=== PATIENT | female | born 1990 | race Caucasian/White ===

== ENCOUNTER 2020-06-14 20:02 | Emergency (ER) | payer OTHER, SELFPAY ==
--- NOTE | ~2020-06-14 | CT_ITS ---
EXAMINATION: CT brain wo con, CT cervical spine wo con EXAM DATE: 06/14/2020 21:06 INDICATION: Head injury, lightheadedness. Dizziness. TECHNIQUE: Spiral CT of the head was performed without contrast. Axial, coronal and sagittal images were reviewed. Spiral CT of the cervical spine was performed without contrast. Axial images were rev iewed. Coronal and sagittal reformatted images were also reviewed. The dose-length product (DLP) fo r this examination was 605.33 (accession [id number]), 309.00 (accession [id number]) mGy-cm. The exposure was tailored according to patient size, and iterative reconstruction (ASIR) was used as additional dose reduction technique. There is no prior study for comparison. FINDINGS: HEAD CT: There is no acute intraparenchymal hemorrhage. No evidence of intraparenchymal brain mass l esion. No evidence of acute infarction. There is no mass effect or midline shift. There is no obstru ctive hydrocephalus suspected. There are no extra-axial collections. There are no acute calvarial f ractures. The orbits are unremarkable. Soft tissue is unremarkable. The visualized sinuses and mas toid air cells are well aerated. 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 Mild cervical levoscoliosis. There is no evidence of acute cervical fracture. The odontoid process is intact. Pr e-dens space is normal. Prevertebral soft tissue is normal. There are no soft tissue abnormalities identified. There is no disc space widening or traumatic vertebral body subluxation suspected. Ther e is mild cervical spondylosis. A detailed level by level evaluation of spondylosis can be added as addendum if requested. IMPRESSION: 1. No acute intracranial findings or cervical fracture. Reviewed, dictated and finalized at location A. ICIAN SURGEON IMPRESSION: 1. No acute intracranial findings or cervical fracture.
[2020-06-14 20:10] VITALS: BP 121/54; PULSE 87; RESP 16; TEMP 36.9; O2SAT 98
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
[2020-06-14 22:19] VITALS: BP 120/63; PULSE 79; RESP 18; O2SAT 98
== END 2020-06-14 22:20 | disposition home or self-care (01) ==
PROVIDERS: Emergency Provider Emergency Medicine; PCP Internal Medicine
DX: S16.1XXA Strain of muscle, fascia and tendon at neck level, initial encounter (principal); S09.90XA Unspecified injury of head, initial encounter; R01.1 Cardiac murmur, unspecified; M72.2 Plantar fascial fibromatosis; V49.40XA Driver injured in collision with unspecified motor vehicles in traffic accident, initial encounter
CPT/HCPCS: 70450; 72125; 99284

== ENCOUNTER 2020-09-16 10:13 | Outpatient (CLI) | payer OTHER, SELFPAY ==
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
== END 2020-09-16 10:14 | disposition home or self-care (01) ==
LOC: ANHIMG 10:17
PROVIDERS: PCP Internal Medicine; Visit Provider Clinical Nurse Specialist
DX: S69.90XA Unspecified injury of unspecified wrist, hand and finger(s), initial encounter (principal); M79.639 Pain in unspecified forearm
CPT/HCPCS: 73090; 73130

== ENCOUNTER 2020-09-28 10:29 | Outpatient (CLI) | payer OTHER, SELFPAY ==
--- NOTE | ~2020-09-28 | MR_ITS ---
EXAMINATION: MR hand RT wo con DATE: 09/28/2020 11:19 INDICATION: Right hand pain. Injury one month ago. TECHNIQUE: Magnetic resonance imaging (MRI) of the right hand was performed without intravenous contr ast. Sequences included axial, coronal, and sagittal T1-weighted FSE and T2-weighted FS FSE. COMPARISON: Right hand radiographs 09/16/2020 FINDINGS: Bone alignment is normal. No fracture. Joint spaces are normal. The flexor and extensor ten dons are normal. IMPRESSION: 1. Normal right hand. Reviewed, dictated and finalized at location A. IMPRESSION: 1. Normal right hand.
== END 2020-09-28 10:30 | disposition home or self-care (01) ==
LOC: ANHIMG 10:30
PROVIDERS: PCP Internal Medicine; Visit Provider Clinical Nurse Specialist
DX: S69.90XA Unspecified injury of unspecified wrist, hand and finger(s), initial encounter (principal); X58.XXXA Exposure to other specified factors, initial encounter
CPT/HCPCS: 73218

== ENCOUNTER 2021-01-03 17:06 | Emergency (ER) | payer OTHER, SELFPAY ==
[2021-01-03 17:09] VITALS: BP 121/75; PULSE 85; RESP 16; TEMP 36.8; O2SAT 99
--- NOTE | 2021-01-03 20:05 | ED.GENADULT ---
HPI - General Adult General Chief complaint: Wound/Laceration Stated complaint: boil to right thigh Time Seen by Provider: 01/03/21 18:11 Source: patient Mode of arrival: ambulatory Limitations: no limitations History of Present Illness HPI narrative: Patient presents with chief complaint of swollen area to the posterior aspect of her right leg that has worsened over the past 2 weeks. Patient states that it started out as a pimple but has increased in size and tenderness. Patient denies any fever, chills, nausea, vomiting, diarrhea, streaking or any other symptoms. Patient denies known history of MRSA. Patient denies chance of due to abstinence. Related Data Home Medications Medication Instructions Recorded Confirmed levothyroxine 75 mcg capsule 75 mcg PO DAILY 11/20/20 Allergies Allergy/AdvReac Type Severity Reaction Status Date / Time No Known Allergies Allergy Unverified 08/16/19 09:27 Review of Systems Review of Systems: CONSTITUTIONAL: Denies fever, chills, or sweats. EYES: Denies visual changes, redness, or discharge. ENT: Denies rhinorrhea, congestion, sore throat, or otalgia. CARDIOVASCULAR: Denies chest pain, palpitations, or edema. RESPIRATORY: Denies cough or dyspnea. GASTROINTESTINAL: Denies abdominal pain, nausea, vomiting, or diarrhea. GENITOURINARY: Denies dysuria or hematuria. SKIN: Reports abscess denies rash or itching. MUSCULOSKELETAL: Denies back pain, joint pain, or myalgia. NEUROLOGIC: Denies headache, numbness, dizziness, or weakness. PSYCHIATRIC: Denies anxiety or depression. PMFSH Past Medical History Medical History Heart murmur Plantar fasciitis, bilateral Surgical History Surgical History H/O dilation and curettage History of open heart surgery Family History Family History Father Hypertension Mother Diabetes mellitus Fatty liver Social History Social History Smoking status: Never smoker Alcohol intake: never Exam Narrative: GENERAL: Well-appearing, well-nourished, and in no acute distress. HEAD: Normocephalic, atraumatic. EYES: PERRLA and EOMI. CHEST: Clear to auscultation. No respiratory distress. No wheezes rales or rhonchi HEART: Regular rate and rhythm. No murmur heard. Normal peripheral pulses. EXTREMITIES: Normal range of motion. No edema. SKIN: Approximately 2.5 cm circular abscess noted to the posterior aspect of the right thigh. Warm, dry, no rash. NEURO: No focal deficits. Alert and oriented x3. PSYCH: Normal mood and affect. Course Vital Signs Vital signs: Vital Signs Temperature 98.3 F 01/03/21 17:09 Pulse Rate 85 01/03/21 17:09 Respiratory Rate 16 01/03/21 17:09 Blood Pressure 121/75 01/03/21 17:09 Pulse Oximetry 99 01/03/21 17:09 Temperature 98.3 F 01/03/21 17:09 Pulse Rate 85 01/03/21 17:09 Respiratory Rate 16 01/03/21 17:09 Blood Pressure 121/75 01/03/21 17:09 Pulse Oximetry 99 01/03/21 17:09 Procedures Abscess I/D lower extremity: Side (if applicable): right Local Anesthetic: lidocaine 1% Amount of anesthesia used (mL): 2 Technique: incised with #11 blade Irrigation: Yes Packing used?: none I&D Results: Pus Abcess I&D Additional Comments: Culture taken wound care instructions given Medical Decision Making Vital Signs Vital Signs: Vital Signs Temperature 98.3 F 01/03/21 17:09 Pulse Rate 85 01/03/21 17:09 Respiratory Rate 16 01/03/21 17:09 Blood Pressure 121/75 01/03/21 17:09 Pulse Oximetry 99 01/03/21 17:09 Temperature 98.3 F 01/03/21 17:09 Pulse Rate 85 01/03/21 17:09 Respiratory Rate 16 01/03/21 17:09 Blood Pressure 121/75 01/03/21 17:09 Pulse Oximetry 99 01/03/21 17:09
[2021-01-03 20:35] VITALS: BP 122/53; PULSE 65; RESP 16; O2SAT 96
== END 2021-01-03 20:36 | disposition home or self-care (01) ==
PROVIDERS: Emergency Provider Emergency Medicine; PCP Internal Medicine
DX: L02.415 Cutaneous abscess of right lower limb (principal)
CPT/HCPCS: 10060; 99283

== ENCOUNTER 2023-07-02 07:38 | Outpatient (CLI) | payer OTHER, SELFPAY ==
--- NOTE | ~2023-07-02 | US_ITS ---
EXAMINATION: US pelvic complete w TV DATE: 07/02/2023 08:39 INDICATION: Displacement of intrauterine contraceptive device. TECHNIQUE: Multiple transabdominal and transvaginal sonographic images of the pelvis were obtained. COMPARISON: None. FINDINGS: TRANSABDOMINAL ULTRASOUND: There is no free fluid in the pelvis. TRANSVAGINAL ULTRASOUND: The uterus measures 6.2 x 5.0 x 3.2 cm . The endometrial complex measures 8 mm in thickness. There is an intrauterine device in expected position. The right ovary measures 1.7 x 3.7 x 1.7 cm. The left o vary measures 3.0 x 1.0 x 2.3 cm. There is normal vascular flow in the ovaries. IMPRESSION: 1. Intrauterine device in expected position. Reviewed, dictated and finalized at location E. IT ASSOCIATE
== END 2023-07-02 07:39 | disposition home or self-care (01) ==
PROVIDERS: PCP Nurse Practitioner Family; Visit Provider Student in an Organized Health Care Education/Training Program
DX: T83.32XA Displacement of intrauterine contraceptive device, initial encounter (principal)
CPT/HCPCS: 76830; 76856

== ENCOUNTER 2024-01-02 10:29 | Emergency (ER) | payer OTHER, SELFPAY ==
[2024-01-02 10:42] VITALS: BP 130/69; PULSE 76; RESP 20; TEMP 36.8; O2SAT 100
--- NOTE | 2024-01-02 10:55 | ED.GENADULT ---
HPI - General Adult General Chief complaint: Extremity Injury, Upper Stated complaint: Left Shoulder Pain Time Seen by Provider: 01/02/24 10:57 Source: patient Mode of arrival: ambulatory Limitations: no limitations History of Present Illness HPI narrative: 33-year-old female presented for complaint of left upper chest and shoulder discomfort. Onset today. She states she was not doing anything when the pain started. Denies recent overuse or injury. Has not taken anything for pain. Rates pain 5/10. Pain is worse with taking deep breath. Related Data Home Medications Medication Instructions Recorded Confirmed No Home Medications 01/02/24 01/02/24 Allergies Allergy/AdvReac Type Severity Reaction Status Date / Time No Known Allergies Allergy Verified 01/02/24 11:01 Review of Systems Review of Systems: CONSTITUTIONAL: Denies body aches, fever, chills CARDIOVASCULAR: Denies chest pain, palpitations, or edema. RESPIRATORY: Denies cough or dyspnea. GASTROINTESTINAL: Denies abdominal pain, nausea, vomiting SKIN: Denies rash, itching, or wounds. MUSCULOSKELETAL: reports pain to left upper chest, shoulder and back NEUROLOGIC: Denies headache, numbness, tingling, or weakness. All systems reviewed & are unremarkable except as noted in HPI and below PMFSH Past Medical History Medical History Anxiety Depression Heart murmur Hypothyroid Plantar fasciitis, bilateral Vaginal discharge Surgical History Surgical History H/O dilation and curettage History of gynecological procedure emmanuel insertion 04/2018 / emmanuel removal 08/06/2021 mirena iud insertion - 08/06/2021 History of open heart surgery Family History Family History Father Hypertension Mother Diabetes mellitus Fatty liver Social History Social History Smoking packs per day: 1 Smoking cigarettes per day: 20.0 Years smoked: 11 Smoking pack-years: 11.00 Smoking status: Current every day smoker Tobacco type: cigarettes Second hand tobacco smoke exposure: Yes Alcohol intake: never Substance use: current Substance use type: marijuana Living arrangements: with family Occupation/Education: occupation 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 Please see nursing chart for further information. There is no relevant family history pertinent to the presenting complaint Exam Narrative: GENERAL: Well-appearing NECK: Supple. No cervical vpt. Full ROM. CHEST: Speaks in full sentences. No respiratory distress. HEART: Regular rate and rhythm. Normal and equal peripheral pulses. EXTREMITIES: Left upper chest, clavicular area, and left trapezius tender with palpation. STEF has normal strength and sensation, normal range of motion at shoulder but endorses pain to left upper chest/shoulder with movement over head. No edema or ecchymosis. No open wounds, or obvious deformity; alignment normal, pulse palpable and equal bilaterally, skin warm, dry, pink. Capillary refill less than 3 seconds. SKIN: Warm, dry, no rash. NEURO: Alert and oriented x3. PSYCH: Normal mood and affect Chest: Chest/axillae images: 1. area of pain reported, tender with palpation Course Course Emergency Course: Patient is aware of diagnosis, understands and agrees to treatment plan. Anticipatory guidance given. Patient agrees to follow-up as directed and is aware of reasons to seek care at the emergency department. Portions of this record may have been created with voice recognition software Level of Care: Express Care
== END 2024-01-02 11:10 | disposition home or self-care (01) ==
PROVIDERS: Emergency Provider Nurse Practitioner Family
DX: M25.512 Pain in left shoulder (principal); R07.89 Other chest pain
CPT/HCPCS: 99212; G0463

== ENCOUNTER 2024-04-07 19:57 | Emergency (ER) | payer OTHER, SELFPAY ==
[2024-04-07 20:10] VITALS: BP 142/75; PULSE 68; RESP 20; TEMP 36.4; O2SAT 100
--- NOTE | 2024-04-07 20:46 | ECG_ITS ---
Test Date: 2024-04-07 21:48:32 Measurements Intervals [place] Rate: 60 P: 52 ME: 137 QRS: 63 QRSD: 97 T: 74 QT: 440 QTc: 443 Interpretive Statements SINUS RHYTHM No previous ECG available for comparison Electronically Signed On 04-08-2024 08:41:30 CARE PROFESSIONAL by Jonathan Anderson M.D.
--- NOTE | 2024-04-07 20:55 | ED.DIZZY ---
HPI - Dizziness General Chief Complaint: Dizziness Stated Complaint: Since yesterday dizzy and lightheaded, shakes Time Seen by Provider: 04/07/24 20:11 History of Present Illness HPI Narrative: 33-year-old female with a past medical history of anxiety, depression, hypothyroidism. Presents to the emergency room today with chief complaint of lightheaded sensation since yesterday. She states she was at work when she noted that her blood pressure was elevated in the 160s. She works at a [employer]. She states that she does not take any blood pressure medications and not taking medications at this time at all. No recent PCP visit that she lost her insurance. She states that she has had some mild headache and ?dizziness ?where she does not experience any ataxia or vertigo. She otherwise is well appearing not any acute distress. Was otherwise in her normal state of health. No trauma or injuries or recent illnesses. Does have sick contacts at home including COVID flu patient's. Related Data Home Medications ?Medication ?Instructions ?Recorded ?Confirmed ?Last Taken ?Type No Home Medications 01/02/24 01/02/24 Unknown History Allergies Allergy/AdvReac Type Severity Reaction Status Date / Time No Known Allergies Allergy Verified 04/07/24 20:14 Review of Systems Review of Systems: As reviewed above in HPI PMFSH Past Medical History Medical History Vaginal discharge Hypothyroid Depression Anxiety Heart murmur Plantar fasciitis, bilateral Surgical History Surgical History History of gynecological procedure emmanuel insertion 04/2018 / emmanuel removal 08/06/2021 mirena iud insertion - 08/06/2021 History of open heart surgery H/O dilation and curettage Family History Family History Father Hypertension Mother Diabetes mellitus Fatty liver Social History Social History Smoking packs per day: 1 Smoking cigarettes per day: 20.0 Years smoked: 11 Smoking pack-years: 11.00 Smoking status: Current every day smoker Tobacco type: cigarettes Second hand tobacco smoke exposure: Yes Alcohol intake: never Substance use: current Substance use type: marijuana Living arrangements: with family Occupation/Education: occupation 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 Mucous membranes moist. No evidence of otitis in either ear, clear canals. NECK: Supple. CHEST: [Clear to auscultation. No respiratory distress.] HEART: [Regular rate and rhythm]. No murmur heard. [Normal peripheral pulses.] ABDOMEN: [Soft, nondistended], [nontender], [No rigidity or guarding] EXTREMITIES: Normal range of motion. [No edema.] SKIN: Warm, dry, no rash. NEURO: [No focal deficits]. Alert and oriented [x3.] PSYCH: [Normal mood and affect.] Course Vital Signs Vital signs: Vital Signs Temperature 36.4 C 04/07/24 20:10 Pulse Rate 68 04/07/24 20:10 Respiratory Rate 20 04/07/24 20:10 Blood Pressure 142/75 H 04/07/24 20:10 Pulse Oximetry 100 04/07/24 20:10 Oxygen Delivery Room Air 04/07/24 20:10 Temperature 36.6 C 04/07/24 23:01 Pulse Rate 60 04/07/24 23:01 Respiratory Rate 17 04/07/24 23:01 Blood Pressure 117/85 04/07/24 23:01 Pulse Oximetry 100 04/07/24 23:01 Oxygen Delivery Room Air 04/07/24 20:10 MDM - Dizziness MDM Narrative Medical decision making narrative: 33-year-old healthy-appearing female presenting to the emergency department with a complaint of lightheadedness. She describes about headache that is bifrontal in nature. Overall reassuring examination with normal vital signs, normal neurological assessment, no signs of otitis, no signs of trauma. Blood pressure slightly elevated 142/75 but not significant elevated and has no vital concerns otherwise. Will obtain basic laboratory studies including CBC, BMP, magnesium,ekg and test. She was provide ibuprofen her headache which upon re-evaluation had significantly improved. Laboratory studies show no significant leukocytosis, no anemia. Normal platelets. Electrolytes all within normal limits, normal renal function panel, normal magnesium, negative test. COVID fluid RSV swabs are negative Overall patient is well-appearing on any acute distress and has no significant or concerning pathology going on and can be safe for discharge with PCP follow-up. Medical Records Attestation: I reviewed the patient's medical records. Lab Data Attestation: I reviewed the patient's lab results. 04/07/24 21:20 04/07/24 21:20 Labs: Lab Results 04/07/24 04/07/24 Range/Units 21:16 21:20 WBC 10.9 H (4.5-10.0) K/mm3 RBC 4.08 L (4.2-5.4) M/mm3 Hgb 12.9 (12.0-15.0) g/dL Hct 37.7 (37.0-47.0) % MCV 92.4 (80-100) fl MCH 31.6 (26-34) pg MCHC 34.2 (32-36) g/dl RDW 12.3 (11.5-14.5) % Plt Count 233 (150-375) k/mm3 MPV 9.7 (7.4-10.4) fl Immature Gran % (Auto) 0.4 (0-0.5) % Neut % (Auto) 76.5 H (45.5-73.1) % Lymph % (Auto) 17.2 L (18.3-44.2) % [place] % (Auto) 5.4 (2.6-8.5) % Eos % (Auto) 0.3 (0-4.4) % Baso % (Auto) 0.2 (0.2-1.2) % Lymph # (Auto) 1.87 (0.9-3.2) K/mm3 [place] # (Auto) 0.6 (0.1-0.6) K/mm3 Eos # (Auto) 0.0 (0-0.3) K/mm3 Baso # (Auto) 0.0 (0.0-0.1) K/mm3 Abs Immat Gran (auto) 0.04 H (0.00-0.031) K/mm3 Absolute Neuts (auto) 8.4 H (1.3-6.7) K/mm3 Absolute Nucleated RBC 0.000 (0.0-0.012) K/mm3 Nucleated RBC % 0.0 (0.0-0.2) % Sodium 141 (137-145) mmol/L Potassium 3.9 (3.4-5.0) mmol/L Chloride 108 H (98-107) mmol/L Carbon Dioxide 28 (22-30) mmol/L Anion Gap 5 (4-12) mmol/L BUN 14 (7-17) mg/dL Creatinine 0.70 (0.7-1.0) mg/dL Estim Creat Clear Calc 109 ml/min Estimated GFR > 60 (59 - ) Glucose 96 (65-110) mg/dL Calcium 8.7 (8.4-10.2) mg/dL Magnesium 2.0 (1.6-2.3) mg/dL Serum HCG, Qual Negative Influenza A (RT-PCR) Negative (Negative) Influenza B (RT-PCR) Negative (Negative) RSV (RT-PCR) Negative (Negative) SARS-CoV-2 RNA (RT-PCR) Negative (Negative) Discharge Plan Discharge Clinical Impression: Episodic lightheadedness Patient Disposition: Home, Self-Care Condition: Stable Instructions: Antibiotic Form, Dizziness (ED) Additional Instructions: Your laboratory studies and workup are very reassuring. Your blood pressure is within normal limits now. I believe you can safely follow-up with your regular primary care provider on outpatient basis. No emergencies today but return with any new or worsening concerns if needed. Patient Language: Lao Prescriptions: No Action No Home Medications Follow-up/Referrals: PHYSICIAN,CREDIT ADMINISTRATION OFFICER [Non-Staff] - Time of Disposition: 23:04
[2024-04-07] MEDS: IBUPROFEN 400 MG TABLET 800 MG PO (21:13)
[2024-04-07 21:23] VITALS: BP 127/73; PULSE 68
[2024-04-07 21:24] VITALS: BP 123/70; PULSE 65
[2024-04-07 21:24] LABS: Basophils Percent Auto 0.2 % (0.2-1.2); Eosinophils Percent Auto 0.3 % (0-4.4); Hematocrit 37.7 % (37.0-47.0); Hemoglobin 12.9 g/dL (12.0-15.0); Immature Granulocyte Absolute 0.04 K/mm3 (0.00-0.031); Immature Granulocyte Percent A 0.4 % (0-0.5); Lymphocytes Absolute Auto 1.87 K/mm3 (0.9-3.2); Lymphocytes Percent Auto 17.2 % (18.3-44.2); Mean Corpuscular HGB Conc 34.2 g/dl (32-36); Mean Corpuscular Hemoglobin 31.6 pg (26-34); Mean Corpuscular Volume 92.4 fl (80-100); Mean Platelet Volume 9.7 fl (7.4-10.4); Monocytes Absolute Auto 0.6 K/mm3 (0.1-0.6); Monocytes Percent Auto 5.4 % (2.6-8.5); Neutrophils Absolute Auto 8.4 K/mm3 (1.3-6.7); Neutrophils Percent Auto 76.5 % (45.5-73.1); Platelet Count Result 233 k/mm3 (150-375); Red Blood Count 4.08 M/mm3 (4.2-5.4); Red Cell Distribution Width 12.3 % (11.5-14.5); White Blood Count 10.9 K/mm3 (4.5-10.0)
[2024-04-07 21:32] VITALS: BP 121/86; PULSE 68; RESP 20; TEMP 36.7; O2SAT 100
[2024-04-07 21:34] LABS: Anion Gap 5 mmol/L (4-12); Blood Urea Nitrogen 14 mg/dL (7-17); Calcium 8.7 mg/dL (8.4-10.2); Carbon Dioxide 28 mmol/L (22-30); Chloride 108 mmol/L (98-107); Estimated CRCL calculation 109 ml/min; Estimated Glomerular Filt Rate > 60; Glucose 96 mg/dL (65-110); Potassium 3.9 mmol/L (3.4-5.0); Sodium 141 mmol/L (137-145)
[2024-04-07 21:51] LABS: SPREG INTERNAL CONTROL Positive; Serum Qual hCG Negative
[2024-04-07 22:54] LABS: Influenza A QL RT-PCR Negative (Negative); Influenza B QL RT-PCR Negative (Negative); RSV RNA, RT-PCR Negative (Negative); SARS-CoV-2 RNA PCR Negative (Negative)
[2024-04-07 23:01] VITALS: BP 117/85; PULSE 60; RESP 17; TEMP 36.6; O2SAT 100
--- OUTSIDE RECORDS SUMMARY | 2024-04-12 03:56 | XMS_ITS | Data Portability ---
[facility] Organization [facility] Address [address] [place] [address] Assessment Encounter Date Assessment Date Assessment LastModified by Organization Details LastModified Time 04/29/2022 04/29/2022 Verbal consent for telephone visit was obtained and phone call lasted for approximately 15 min. Not available 04/29/2022 15:50:02 Plan of Treatment Reminders Order Date Submit Date Provider Last Modified By Organization Details Last Modified Time Details Appointments ANY 30 2024 02:00P Elisha Mendoza APN, [employer]OR[employer] Not available Not available Not available Lab vitamin D, 25-hydr oxy, total, serum 2021 022 [facility], [address] [place] [address] 2, [place], [address], 01/08/2022 10:37:19 urinaly sis, dipstic k 2021 022 In-Office Order, Internal Use Only DO Not Attach Compendium DO Not Attach Compendium, Do Not Delete/merge, [id number] 01/06/2022 14:43:01 culture , urine 2021 022 [facility], [address] [facility] [address], [place], [address], 01/08/2022 10:37:18 TSH, ultra-s ensitiv e, serum 2021 022 PATRICIA [facility], [address], [place], [address], 01/08/2022 10:37:17 CMP, serum or plasma 2021 022 PAT[facility]IA [facility], [address], [place], [address], 01/08/2022 10:37:16 lipid panel, serum 2021 022 [facility], [address], [place], [address], 01/08/2022 10:37:15 CBC 2021 022 PAT[facility], [address], [place], [address], 01/08/2022 10:37:18 urinaly sis, dipstic k 2021 022 In-Office Order, Internal Use Only DO Not Attach Compendium DO Not Attach Compendium, Do Not Delete/merge, [id number] 03/12/2022 15:07:38 culture , urine 2021 022 [facility], [address] [place] [address] 2, [place], [address], 03/16/2022 03:07:59 TSH, ultra-s ensitiv e, serum 2021 022 [facility]ul[facility], [address] [place] [address] 2, [place], [address], 04/05/2023 09:28:36 TSH, ultra-s ensitiv e, serum 2022 023 [facility], [address] [place] [address] 2, [place], [address], 09/24/2022 10:37:04 urinaly sis, dipstic k 2022 023 In-Office Order, Internal Use Only DO Not Attach Compendium DO Not Attach Compendium, Do Not Delete/merge, [id number] 04/05/2023 10:00:51 culture , urine 2022 023 [facility], [address] [facility] [address], [place], [address], 04/08/2023 03:08:07 lipid panel, serum 2022 023 [facility], [address] [facility], [facility] [address], [place], [address], 04/08/2023 03:08:03 HbA1c (hemogl obin A1c), blood 2022 023 [facility], [address] [facility] [address], [place], [address], 04/08/2023 03:08:06 vitamin D, 25-hydr oxy, total, serum 2022 023 [facility], [address] [facility], [facility] [address], [place], [address], 04/08/2023 03:08:08 TSH, ultra-s ensitiv e, serum 2022 023 [facility], [address] [facility], [facility] [address], [place], [address], 04/08/2023 03:08:05 CMP, serum or plasma 2022 023 [facility], [address] [facility], [facility] [address], [place], [address], 04/08/2023 03:08:04 CBC 2022 023 [facility], [address] [facility], [facility] [address], [place], [address], 04/08/2023 03:08:07 Referral None recorde d. Procedures None recorde d. Surgeries None recorde d. Imaging None recorde d. Medication Orders escital opram 10 mg tablet 2021 022 [id number], [address], [place], [place], [id number], 04/05/2023 09:32:11 Macrobi d 100 mg capsule [address] [address] [facility]02886, [address], [place], [place], [id number], 04/29/2022 15:32:00 flucona zole 150 mg tablet 2021 [facility] #54512, [address], [place], [place], [id number], 04/05/2023 09:32:18 levothy roxine 25 mcg tablet 2021 [facility] #02637, [address], [place], [place], [id number], 04/05/2023 09:32:27 escital opram 10 mg tablet 2021 [facility] #09693, [address], [place], [place], [id number], 04/05/2023 09:32:11 bupropi on HCl SR 150 mg tablet, 12 hr sustain ed-rele ase 2021 [facility] #21504, [address], [place], [place], [id number], 04/05/2023 09:31:42 Zithrom ax Z-Kishan 250 mg tablet [address] [facility]73209, [address], [place], [place], [id number], 07/06/2022 14:55:50 levothy roxine 25 mcg tablet 2022 023 [facility] #48280, [address], [place], [place], [id number], 04/05/2023 09:32:38 escital opram 10 mg tablet 2022 023 [facility] #43284, [address], [place], [place], [id number], 04/05/2023 09:32:11 bupropi on HCl SR 150 mg tablet, 12 hr sustain ed-rele ase 2022 023 [facility] #[id number], [address], [place], [place], [id number], 04/05/2023 09:31:42 Patient TargetsNo targets recorded. Patient Instructions Encounter Date Encounter Id Patient Instructions Last Modified By Organization Details Last Modified Time 01/06/2022 [id number] When You Want to Lose Weight: Care Instructions Not available 01/06/2022 14:43:01 Learning About Benefits of Quitting Smoking Not available 01/06/2022 14:43:01 tobacco cessation Not available 01/06/2022 14:43:02 hypothyroidism: care instructions [email or web address] Not available 01/06/2022 14:43:02 Take thyroid medication on empty stomach at same time daily, 30-60 minutes before eating breakfast. It may take up to 6 weeks for the medication to make a difference. Call office if having any symptoms such as: Anxiety, irritability, trouble sleeping; weakness (in particular of the upper arms and thighs, making it difficult to lift heavy items or climb stairs or get up from a chair); tremors (of the hands), Perspiring more than normal, difficulty tolerating hot weather; rapid, forceful, or irregular heartbeats; fatigue; weight loss in spite of a normal or increased appetite; frequent bowel movements. Follow up with lab repeated in 6-8 weeks Not available 01/06/2022 14:45:35 follow up in 2 months I have reviewed the provider's note and I agree with the documented assessment and plan. HLF [email or web address] Not available 01/13/2022 14:43:10 03/12/2022 [id number] A healthy lifestyle: care instructions Not available 03/12/2022 15:07:38 painful urination (dysuria): care instructions Not available 03/12/2022 15:07:38 vaginal yeast infection: care instructions Not available 03/12/2022 15:07:38 hypothyroidism: care instructions Not available 03/12/2022 15:07:38 Continue to take medications as prescribed, do not abruptly stop them. Try walking or deep breathing exercises when feeling anxious. Stress management recommended-posi tive imagery. Increase activity to 30 min a day most days. Call or return if problem persists or worsens. Not available 03/12/2022 15:07:09 f/u 4 months DWP barriers to care: none Not available 03/12/2022 15:13:08 04/29/2022 [id number] A healthy lifestyle: care instructions Not available 04/29/2022 15:50:27 coronavirus (covid-19): care instructions Not available 04/29/2022 15:50:09 upper respiratory infection (cold): care instructions Not available 04/29/2022 15:47:24 Take all antibiotics prescribed to you. If any fever or increase in pain, call/return to office. Not available 04/29/2022 15:46:19 keep follow up as planned Not available 04/29/2022 15:46:53 07/06/2022 [id number] A healthy lifestyle: care instructions Not available 07/06/2022 15:28:33 hypothyroidism: care instructions Not available 07/06/2022 15:28:33 Continue to take medications as prescribed, do not abruptly stop them. Try walking or deep breathing exercises when feeling anxious. Stress management recommended-posi tive imagery. Increase activity to 30 min a day most days. Call or return if problem persists or worsens. Not available 07/06/2022 15:23:39 f/u 4 months DWP barriers to care: none Not available 07/06/2022 15:23:40 04/05/2023 [id number] Learning About Benefits of Quitting Smoking Not available 04/05/2023 10:00:46 A healthy lifestyle: care instructions Not available 04/05/2023 10:00:47 hypothyroidism: care instructions Not available 04/05/2023 10:00:47 Increase intake of fresh fruits,? ? ? and vegetables. Avoid packaged foods and fast foods. ? ? ? Follow a low salt diet, drink at least 8-10 8oz glasses of water a day, exercise most days of the week. Take all medications as prescribed. Keep appointments with PCP and all specialists. Not available 04/05/2023 09:54:18 f/u 6 months DWP barriers to care: none [email or web address] Not available 04/05/2023 10:00:54 Reason for Referral None Reported. Results Created Date Observation Date Name Description Value Unit Range Abnormal Flag Note LastModifiedBy Organization Detail LastModifiedTime 01/07/20 22 01/07/2022 LIPID PANEL cholesterol, total 131 mg/dL 100-19 9 Not Available [facility] ([facility]) [address] [facility], [place], [address], 01/08/2022 10:37:15 01/07/20 22 01/07/2022 LIPID PANEL triglyceride s 87 mg/dL 0-149 Not Available [facility] ([facility]) [address] [place], [address], 01/08/2022 10:37:15 01/07/20 22 01/07/2022 LIPID PANEL HDL cholesterol 40 mg/dL >39 Not Available [facility] ([facility]) [address] [place], [address], 01/08/2022 10:37:15 01/07/20 22 01/07/2022 LIPID PANEL VLDL cholesterol herminio 17 mg/dL 5-40 Not Available [facility] ([facility]) [address] [facility], [place], [address], 01/08/2022 10:37:15 01/07/20 22 01/07/2022 LIPID PANEL LDL chol calc ([facility]) 74 mg/dL 0-99 Not Available [facility] ([facility]) [address] [facility], [place], [address], 01/08/2022 10:37:15 01/07/20 22 01/07/2022 COMP. METAB OLIC PANEL (14) glucose 84 mg/dL 65-99 Not Available [facility] ([facility]) [address] [place], [address], 01/08/2022 10:37:16 01/07/20 22 01/07/2022 COMP. METAB OLIC PANEL (14) BUN 14 mg/dL 6-20 Not Available [facility] ([facility]) [address] [place], [address], 01/08/2022 10:37:16 01/07/20 22 01/07/2022 COMP. METAB OLIC PANEL (14) creatinine 0.66 mg/dL 0.57-1 .00 Not Available [facility] ([facility]) [address] [facility], [place], [address], 01/08/2022 10:37:16 01/07/20 22 01/07/2022 COMP. METAB OLIC PANEL (14) eGFR 119 mL/mi n/1.7 3 >59 Not Available [facility] ([facility]) [address] [place], [address], 01/08/2022 10:37:16 01/07/20 22 01/07/2022 COMP. METAB OLIC PANEL (14) BUN/creatini ne ratio 21 9-23 Not Available [facility] ([facility]) [address] [place], [address], 01/08/2022 10:37:16 01/07/20 22 01/07/2022 COMP. METAB OLIC PANEL (14) sodium 138 mmol/ L 134-14 4 Not Available [facility] ([facility]) [address] [place], [address], 01/08/2022 10:37:16 01/07/20 22 01/07/2022 COMP. METAB OLIC PANEL (14) potassium 4.2 mmol/ L 3.5-5. 2 Not Available [facility] ([facility]) [address] [place], [address], 01/08/2022 10:37:16 01/07/20 22 01/07/2022 COMP. METAB OLIC PANEL (14) chloride 101 mmol/ L 96-106 Not Available [facility] ([facility]) [address] [place], [address], 01/08/2022 10:37:16 01/07/20 22 01/07/2022 COMP. METAB OLIC PANEL (14) carbon dioxide, total 22 mmol/ L 20-29 Not Available [facility] ([facility]) [address] [place], [address], 01/08/2022 10:37:16 01/07/20 22 01/07/2022 COMP. METAB OLIC PANEL (14) calcium 9.1 mg/dL 8.7-10 .2 Not Available [facility] ([facility]) [address] [place], [address], 01/08/2022 10:37:16 01/07/20 22 01/07/2022 COMP. METAB OLIC PANEL (14) protein, total 7.1 g/dL 6.0-8. 5 Not Available [facility] ([facility]) [address] [place], [address], 01/08/2022 10:37:16 01/07/20 22 01/07/2022 COMP. METAB OLIC PANEL (14) albumin 4.8 g/dL 3.8-4. 8 Not Available [facility] ([facility]) [address] [place], [address], 01/08/2022 10:37:16 01/07/20 22 01/07/2022 COMP. METAB OLIC PANEL (14) globulin, total 2.3 g/dL 1.5-4. 5 Not Available [facility] ([facility]) [address] [place], [address], 01/08/2022 10:37:16 01/07/20 22 01/07/2022 COMP. METAB OLIC PANEL (14) A/G ratio 2.1 1.2-2. 2 Not Available [facility] ([facility]) [address] [place], [address], 01/08/2022 10:37:16 01/07/20 22 01/07/2022 COMP. METAB OLIC PANEL (14) bilirubin, total 0.5 mg/dL 0.0-1. 2 Not Available [facility] ([facility]) [address] [place], [address], 01/08/2022 10:37:16 01/07/20 22 01/07/2022 COMP. METAB OLIC PANEL (14) alkaline phosphatase 99 IU/L 44-121 Not Available [facility] ([facility]) [address] [place], [address], 01/08/2022 10:37:16 01/07/20 22 01/07/2022 COMP. METAB OLIC PANEL (14) AST (SGOT) 17 IU/L 0-40 Not Available [facility] ([facility]) [address] [place], [address], 01/08/2022 10:37:16 01/07/20 22 01/07/2022 COMP. METAB OLIC PANEL (14) ALT (SGPT) 16 IU/L 0-32 Not Available [facility] ([facility]) [address] [facility], [place], [address], 01/08/2022 10:37:16 01/07/20 22 01/07/2022 TSH RFX ON ABNOR MAL TO FREE T4 TSH 3.200 uIU/m L 0.450- 4.500 Not Available [facility] ([facility]) [address] [facility], [place], [address], 01/08/2022 10:37:17 01/07/20 22 01/08/2022 URINE CULTU RE,CO MPREH ENSIV E urine culture,comp rehensive Final report Not Available [facility] ([facility]) [address] [facility], [place], [address], 01/08/2022 10:37:18 01/07/20 22 01/08/2022 URINE CULTU RE,CO MPREH ENSIV E result 1 Commen t Mixed uroge nital ashley 10,00 0-25, 000 colon y formi ng units per mL Not Available [facility] ([facility]) [address] [facility], [place], [address], 01/08/2022 10:37:18 01/07/20 22 01/07/2022 CBC, PLATE LET, NO DIFFE RENTI AL WBC 8.4 x10e3 /uL 3.4-10 .8 Not Available [facility] ([facility]) [address] [place], [address], 01/08/2022 10:37:18 01/07/20 22 01/07/2022 CBC, PLATE LET, NO DIFFE RENTI AL RBC 4.53 x10e6 /uL 3.77-5 .28 Not Available [facility] ([facility]) [address] [facility], [place], [address], 01/08/2022 10:37:18 01/07/20 22 01/07/2022 CBC, PLATE LET, NO DIFFE RENTI AL hemoglobin 14.0 g/dL 11.1-1 5.9 Not Available [facility] ([facility]) [address] [facility], [place], [address], 01/08/2022 10:37:18 01/07/20 22 01/07/2022 CBC, PLATE LET, NO DIFFE RENTI AL hematocrit 42.6 % 34.0-4 6.6 Not Available [facility] ([facility]) [address] [facility], [place], [address], 01/08/2022 10:37:18 01/07/20 22 01/07/2022 CBC, PLATE LET, NO DIFFE RENTI AL MCV 94 fL 79-97 Not Available [facility] ([facility]) [address] [facility], [place], [address], 01/08/2022 10:37:18 01/07/2001/07/2022 CBC, PLATE LET, NO DIFFE RENTI AL MCH 30.9 pg 26.6-3 3.0 Not Available [facility] ([facility]) [address] [facility], [place], [address], 01/08/2022 10:37:18 01/07/2001/07/2022 CBC, PLATE LET, NO DIFFE RENTI AL MCHC 32.9 g/dL 31.5-3 5.7 Not Available [facility] ([facility]) [address] [facility], [place], [address], 01/08/2022 10:37:18 01/07/2001/07/2022 CBC, PLATE LET, NO DIFFE RENTI AL RDW 11.4 % 11.7-1 5.4 below low normal Not Available [facility] ([facility]) [address] [facility], [place], [address], 01/08/2022 10:37:18 01/07/20 22 01/07/2022 CBC, PLATE LET, NO DIFFE RENTI AL platelets 247 x10e3 /uL 150-45 0 Not Available [facility] ([facility]) [address] [facility], [place], [address], 01/08/2022 10:37:18 01/07/20 22 01/07/2022 VITAM IN D, 25-HY DROXY vitamin D, 25-hydroxy 24.4 NG/mL 30.0-1 00.0 below low normal Vitam in D defic iency has been defin ed by the Insti tute of Medic ine and an Endoc rine Socie ty pract ice guide line as a level of serum 25-OH vitam in D less than 20 ng/mL (1,2) . The Endoc rine Socie ty went on to [facility] er defin e vitam in D insuf ficie ncy as a level betwe en 21 and 29 ng/mL (2). 1. IOM (Inst itute of Medic ine). 2010. Dieta ry refer ence jens es for calci um and D. Philip neal [place]: [facility] . 2. Tory fry [place], Cathy murrieta [place], Charlie off-F errar i STEINER, et al. Evalu ation , treat ment, and preve ntion of vitam in D defic iency : an Endoc rine Socie ty clini herminio pract ice guide line. JCEM. 2010; 96(7) :1911 -30. Not Available [facility] ([facility]) [address] [facility], [place], [address], 01/08/2022 10:37:19 01/07/20 22 01/06/2022 urina lysis , dipst ick Leukocytes Negati ve Not Available In-Office Order Internal Use Only DO Not Attach Compendium DO Not Attach Compendium, Do Not Delete/merge, [id number] 01/06/2022 14:21:25 01/07/20 22 01/06/2022 urina lysis , dipst ick Nitrite negati ve Not Available In-Office Order Internal Use Only DO Not Attach Compendium DO Not Attach Compendium, Do Not Delete/merge, [id number] 01/06/2022 14:21:01/07/20 22 01/06/2022 urina lysis , dipst ick Urobilinogen .2 Not Available In-Of fice Order Internal Use Only DO Not Attach Compendium DO Not Attach Compendium, Do Not Delete/merge, 01/06/2022 14:21:25 01/07/20 22 01/06/2022 urina lysis , dipst ick Protein Negati ve Not Available In-Office Order Internal Use Only DO Not Attach Compendium DO Not Attach Compendium, Do Not Delete/merge, 01/06/2022 14:21:25 01/07/20 22 01/06/2022 urina lysis , dipst ick pH 5.0 Not Available In-Office Order Internal Use Only DO Not Attach Compendium DO Not Attach Compendium, Do Not Delete/merge, 01/06/2022 14:21:01/07/20 22 01/06/2022 urina lysis , dipst ick Blood Modera te Not Available In-Office Order Internal Use Only DO Not Attach Compendium DO Not Attach Compendium, Do Not Delete/merge, 01/06/2022 14:21:01/07/20 22 01/06/2022 urina lysis , dipst ick Specific Climax 1.030 Not Available In-Off ice Order Internal Use Only DO Not Attach Compendium DO Not Attach Compendium, Do Not Delete/merge, 01/06/2022 14:21:01/07/20 22 01/06/2022 urina lysis , dipst ick Ketone Negati ve Not Available In-Office Order Internal Use Only DO Not Attach Compendium DO Not Attach Compendium, Do Not Delete/merge, 01/06/2022 14:21:01/07/20 22 01/06/2022 urina lysis , dipst ick Bilirubin Negati ve Not Available In-Office Order Internal Use Only DO Not Attach Compendium DO Not Attach Compendium, Do Not Delete/merge, 01/06/2022 14:21:25 01/07/20 22 01/06/2022 urina lysis , dipst ick Glucose Negati ve Not Available In-Office Order Internal Use Only DO Not Attach Compendium DO Not Attach Compendium, Do Not Delete/merge, [id number] 01/06/2022 14:21:25 01/07/20 22 01/06/2022 urina lysis , dipst ick Appearance Clear Not Available In-Offi ce Order Internal Use Only DO Not Attach Compendium DO Not Attach Compendium, Do Not Delete/merge, [id number] 01/06/2022 14:21:25 01/07/20 22 01/06/2022 urina lysis , dipst ick Color Dark Yellow Not Available In-Office Order Internal Use Only DO Not Attach Compendium DO Not Attach Compendium, Do Not Delete/merge, [id number] 01/06/2022 14:21:25 03/12/20 22 03/15/2022 URINE CULTU RE,CO MPREH ENSIV E urine culture,comp rehensive Final report Not Available [facility] ([facility]) [address] [place], [address], 03/16/2022 03:07:59 03/12/20 22 03/15/2022 URINE CULTU RE,CO MPREH ENSIV E result 1 Commen t Mixed uroge nital ashley 10,00 0-25, 000 colon y formi ng units per mL Not Available [facility] ([facility]) [address] [facility], [place], [address], 03/16/2022 03:07:59 03/12/20 22 03/12/2022 urina lysis , dipst ick Leukocytes Trace Not Available In-Offi ce Order Internal Use Only DO Not Attach Compendium DO Not Attach Compendium, Do Not Delete/merge, [id number] 03/12/2022 15:00:40 03/12/20 22 03/12/2022 urina lysis , dipst ick Nitrite negati ve Not Available In-Office Order Internal Use Only DO Not Attach Compendium DO Not Attach Compendium, Do Not Delete/merge, [id number] 03/12/2022 15:00:40 03/12/20 22 03/12/2022 urina lysis , dipst ick Urobilinogen .2 Not Available In-Of fice Order Internal Use Only DO Not Attach Compendium DO Not Attach Compendium, Do Not Delete/merge, [id number] 03/12/2022 15:00:40 03/12/20 22 03/12/2022 urina lysis , dipst ick Protein Negati ve Not Available In-Office Order Internal Use Only DO Not Attach Compendium DO Not Attach Compendium, Do Not Delete/merge, [id number] 03/12/2022 15:00:40 03/12/20 22 03/12/2022 urina lysis , dipst ick pH 6.0 Not Available In-Office Order Internal Use Only DO Not Attach Compendium DO Not Attach Compendium, Do Not Delete/merge, 03/12/2022 15:00:40 03/12/20 22 03/12/2022 urina lysis , dipst ick Blood Small Not Available In-Office Order Internal Use Only DO Not Attach Compendium DO Not Attach Compendium, Do Not Delete/merge, 03/12/2022 15:00:40 03/12/20 22 03/12/2022 urina lysis , dipst ick Specific Climax 1.015 Not Available In-Off ice Order Internal Use Only DO Not Attach Compendium DO Not Attach Compendium, Do Not Delete/merge, 03/12/2022 15:00:40 03/12/20 22 03/12/2022 urina lysis , dipst ick Ketone Negati ve Not Available In-Office Order Internal Use Only DO Not Attach Compendium DO Not Attach Compendium, Do Not Delete/merge, [id number] 03/12/2022 15:00:40 03/12/20 22 03/12/2022 urina lysis , dipst ick Bilirubin Negati ve Not Available In-Office Order Internal Use Only DO Not Attach Compendium DO Not Attach Compendium, Do Not Delete/merge, 03/12/2022 15:00:40 03/12/20 22 03/12/2022 urina lysis , dipst ick Glucose Negati ve Not Available In-Office Order Internal Use Only DO Not Attach Compendium DO Not Attach Compendium, Do Not Delete/merge, 03/12/2022 15:00:40 03/12/20 22 03/12/2022 urina lysis , dipst ick Appearance Slight ly Cloudy Not Available In-Office Order Internal Use Only DO Not Attach Compendium DO Not Attach Compendium, Do Not Delete/merge, [id number] 03/12/2022 15:00:40 03/12/20 22 03/12/2022 urina lysis , dipst ick Color Yellow Not Available In-Office Order Internal Use Only DO Not Attach Compendium DO Not Attach Compendium, Do Not Delete/merge, [id number] 03/12/2022 15:00:40 09/24/19 23 09/24/2022 TSH RFX ON ABNOR MAL TO FREE T4 TSH 2.540 uIU/m L 0.450- 4.500 Not Available [facility] ([facility]) [address] [facility], [place], [address], 09/24/2022 10:37:04 04/05/20 23 04/06/2023 LIPID PANEL cholesterol, total 137 mg/dL 100-19 9 Not Available [facility] ([facility]) [address] [facility], [place], [address], 04/08/2023 03:08:03 04/05/2004/06/2023 LIPID PANEL triglyceride s 73 mg/dL 0-149 Not Available [facility] ([facility]) [address] [place], [address], 04/08/2023 03:08:03 04/05/20 23 04/06/2023 LIPID PANEL HDL cholesterol 40 mg/dL >39 Not Available [facility]) [address] [facility], [place], [address], 04/08/2023 03:08:03 04/05/20 23 04/06/2023 LIPID PANEL VLDL cholesterol herminio 15 mg/dL 5-40 Not Available [facility] ([facility]) [address] [facility], [place], [address], 04/08/2023 03:08:03 04/05/20 23 04/06/2023 LIPID PANEL LDL chol calc ([facility]) 82 mg/dL 0-99 Not Available [facility] ([facility]) [address] [place], [address], 04/08/2023 03:08:03 04/05/20 23 04/06/2023 COMP. METAB OLIC PANEL (14) glucose 81 mg/dL 70-99 Not Available [facility] ([facility]) [address] [place], [address], 04/08/2023 03:08:04 04/05/20 23 04/06/2023 COMP. METAB OLIC PANEL (14) BUN 13 mg/dL 6-20 Not Available [facility] ([facility]) [address] [place], [address], 04/08/2023 03:08:04 04/05/20 23 04/06/2023 COMP. METAB OLIC PANEL (14) creatinine 0.61 mg/dL 0.57-1 .00 Not Available [facility] ([facility]) [address] [place], [address], 04/08/2023 03:08:04 04/05/20 23 04/06/2023 COMP. METAB OLIC PANEL (14) eGFR 121 mL/mi n/1.7 3 >59 Not Available [facility] ([facility]) [address] [place], [address], 04/08/2023 03:08:04 04/05/20 23 04/06/2023 COMP. METAB OLIC PANEL (14) BUN/creatini ne ratio 21 9-23 Not Available [facility] ([facility]) [address] [place], [address], 04/08/2023 03:08:04 04/05/20 23 04/06/2023 COMP. METAB OLIC PANEL (14) sodium 139 mmol/ L 134-14 4 Not Available [facility] ([facility] [address] [facility], [address], 04/08/2023 03:08:04 04/05/20 23 04/06/2023 COMP. METAB OLIC PANEL (14) potassium 4.2 mmol/ L 3.5-5. 2 Not Available [facility] ([facility]) [address] [place], [address], 04/08/2023 03:08:04 04/05/20 23 04/06/2023 COMP. METAB OLIC PANEL (14) chloride 104 mmol/ L 96-106 Not Available [facility] ([facility]) [address] [place], [address], 04/08/2023 03:08:04 04/05/20 23 04/06/2023 COMP. METAB OLIC PANEL (14) carbon dioxide, total 20 mmol/ L 20-29 Not Available [facility] ([facility]) [address] [place], [address], 04/08/2023 03:08:04 04/05/20 23 04/06/2023 COMP. METAB OLIC PANEL (14) calcium 9.4 mg/dL 8.7-10 .2 Not Available [facility] ([facility]) [address] [place], [address], 04/08/2023 03:08:04 04/05/20 23 04/06/2023 COMP. METAB OLIC PANEL (14) protein, total 7.0 g/dL 6.0-8. 5 Not Available [facility] ([facility]) [address] [place], [address], 04/08/2023 03:08:04 04/05/20 23 04/06/2023 COMP. METAB OLIC PANEL (14) albumin 4.6 g/dL 3.9-4. 9 Not Available [facility] ([facility]) [address] [place], [address], 04/08/2023 03:08:04 04/05/20 23 04/06/2023 COMP. METAB OLIC PANEL (14) globulin, total 2.4 g/dL 1.5-4. 5 Not Available [facility] ([facility]) [address] [facility], [place], [address], 04/08/2023 03:08:04 04/05/20 23 04/06/2023 COMP. METAB OLIC PANEL (14) A/G ratio 1.9 1.2-2. 2 Not Available [facility] ([facility]) [address] [facility], [place], [address], 04/08/2023 03:08:04 04/05/20 23 04/06/2023 COMP. METAB OLIC PANEL (14) bilirubin, total 0.3 mg/dL 0.0-1. 2 Not Available [facility] ([facility]) [address] [facility], [place], [address], 04/08/2023 03:08:04 04/05/20 23 04/06/2023 COMP. METAB OLIC PANEL (14) alkaline phosphatase 106 IU/L 44-121 Not Available [facility] ([facility]) [address] [facility], [place], [address], 04/08/2023 03:08:04 04/05/20 23 04/06/2023 COMP. METAB OLIC PANEL (14) AST (SGOT) 20 IU/L 0-40 Not Available [facility] ([facility]) [address] [place], [address], 04/08/2023 03:08:04 04/05/20 23 04/06/2023 COMP. METAB OLIC PANEL (14) ALT (SGPT) 21 IU/L 0-32 Not Available [facility] ([facility]) [address] [facility], [place], [address], 04/08/2023 03:08:04 12/04/13 2304/06/2023 TSH RFX ON ABNOR MAL TO FREE T4 TSH 4.500 uIU/m L 0.450- 4.500 Not Available [facility] ([facility]) [address] [facility], [place], [address], 04/08/2023 03:08:05 04/05/2004/06/2023 HEMOG LOBIN A1C hemoglobin A1C 5.3 % 4.8-5. 6 Predi abete s: 5.7 - 6.4 Diabe tarah: >6.4 Glyce jeremi contr ol for adult s with diabe tarah: <7.0 Not Available [facility] ([facility]) [address] [facility], [place], [address], 04/08/2023 03:08:06 04/05/2004/06/2023 CBC, NO DIFFE RENTI AL/PL ATELE T WBC 7.5 x10e3 /uL 3.4-10 .8 Not Available [facility] ([facility]) [address] [place], [address], 04/08/2023 03:08:06 04/05/2004/06/2023 CBC, NO DIFFE RENTI AL/PL ATELE T RBC 4.25 x10e6 /uL 3.77-5 .28 Not Available [facility] ([facility]) [address] [place], [address], 04/08/2023 03:08:06 04/05/2004/06/2023 CBC, NO DIFFE RENTI AL/PL ATELE T hemoglobin 13.2 g/dL 11.1-1 5.9 Not Available [facility] ([facility]) [address] [place], [address], 04/08/2023 03:08:06 04/05/2004/06/2023 CBC, NO DIFFE RENTI AL/PL ATELE T hematocrit 38.3 % 34.0-4 6.6 Not Available [facility] ([facility]) [address] [facility], [place], [address], 04/08/2023 03:08:06 04/05/20 23 04/06/2023 CBC, NO DIFFE RENTI AL/PL ATELE T MCV 90 fL 79-97 Not Available [facility] ([facility]) [address] [facility], [place], [address], 04/08/2023 03:08:06 04/05/20 23 04/06/2023 CBC, NO DIFFE RENTI AL/PL ATELE T MCH 31.1 pg 26.6-3 3.0 Not Available [facility] ([facility]) [address] [facility], [place], [address], 04/08/2023 03:08:06 04/05/20 23 04/06/2023 CBC, NO DIFFE RENTI AL/PL ATELE T MCHC 34.5 g/dL 31.5-3 5.7 Not Available [facility] ([facility]) [address] [facility], [place], [address], 04/08/2023 03:08:06 04/05/2004/06/2023 CBC, NO DIFFE RENTI AL/PL ATELE T RDW 11.8 % 11.7-1 5.4 Not Available [facility] ([facility]) [address] [facility], [place], [address], 04/08/2023 03:08:06 04/05/2004/07/2023 URINE CULTU RE,CO MPREH ENSIV E urine culture,comp rehensive Final report Not Available [facility] ([facility]) [address] [facility], [place], [address], 04/08/2023 03:08:07 04/05/20 23 04/07/2023 URINE CULTU RE,CO MPREH ENSIV E result 1 Commen t Mixed uroge nital ashley 3,000 Colon ies/m L Not Available [facility] ([facility]) [address] [facility], [place], [address], 04/08/2023 03:08:07 04/05/20 23 04/06/2023 VITAM IN D, 25-HY DROXY vitamin D, 25-hydroxy 13.0 NG/mL 30.0-1 00.0 below low normal Vitam in D defic iency has been defin ed by the Insti tute of Medic ine and an Endoc rine Socie ty pract ice guide line as a level of serum 25-OH vitam in D less than 20 ng/mL (1,2) . The Endoc rine Socie ty went on to furth er defin e vitam in D insuf ficie ncy as a level betwe en 21 and 29 ng/mL (2). 1. IOM (Inst itute of Medic ine). 2010. Dieta ry refer ence intak es for calci um and D. Philip neal [place]: The [facility] . 2. Tory fry [place], Cathy murrieta [place], Charlie off-F errar i STEINER, et al. Evalu ation , treat ment, and preve ntion of vitam in D defic iency : an Endoc rine Socie ty clini herminio pract ice guide line. JCEM. 2010; 96(7) :1911 -30. Not Available [facility] ([facility]) [address] [facility], [place], [address], 04/08/2023 03:08:08 04/05/2004/05/2023 urina lysis , dipst ick Leukocytes Negati ve Not Available In-Office Order Internal Use Only DO Not Attach Compendium DO Not Attach Compendium, Do Not Delete/merge, [id number] 04/05/2023 09:44:52 04/05/20 23 04/05/2023 urina lysis , dipst ick Nitrite negati ve Not Available In-Office Order Internal Use Only DO Not Attach Compendium DO Not Attach Compendium, Do Not Delete/merge, [id number] 04/05/2023 09:44:52 04/05/20 23 04/05/2023 urina lysis , dipst ick Urobilinogen .2 Not Available In-Of fice Order Internal Use Only DO Not Attach Compendium DO Not Attach Compendium, Do Not Delete/merge, 04/05/2023 09:44:52 04/05/20 23 04/05/2023 urina lysis , dipst ick Protein Negati ve Not Available In-Office Order Internal Use Only DO Not Attach Compendium DO Not Attach Compendium, Do Not Delete/merge, 04/05/2023 09:44:52 04/05/20 23 04/05/2023 urina lysis , dipst ick pH 6.0 Not Available In-Office Order Internal Use Only DO Not Attach Compendium DO Not Attach Compendium, Do Not Delete/merge, 04/05/2023 09:44:52 04/05/20 23 04/05/2023 urina lysis , dipst ick Blood Non-He molyze d: Trace Not Available In-Office Order Internal Use Only DO Not Attach Compendium DO Not Attach Compendium, Do Not Delete/merge, 04/05/2023 09:44:52 04/05/20 23 04/05/2023 urina lysis , dipst ick Specific [place] 1.030 Not Available In-Off ice Order Internal Use Only DO Not Attach Compendium DO Not Attach Compendium, Do Not Delete/merge, 04/05/2023 09:44:52 04/05/20 23 04/05/2023 urina lysis , dipst ick Ketone Negati ve Not Available In-Office Order Internal Use Only DO Not Attach Compendium DO Not Attach Compendium, Do Not Delete/merge, 04/05/2023 09:44:52 04/05/20 23 04/05/2023 urina lysis , dipst ick Bilirubin Negati ve Not Available In-Office Order Internal Use Only DO Not Attach Compendium DO Not Attach Compendium, Do Not Delete/merge, 04/05/2023 09:44:52 04/05/20 23 04/05/2023 urina lysis , dipst ick Glucose Negati ve Not Available In-Office Order Internal Use Only DO Not Attach Compendium DO Not Attach Compendium, Do Not Delete/merge, [id number] 04/05/2023 09:44:52 04/05/20 23 04/05/2023 urina lysis , dipst ick Appearance Clear Not Available In-Offi ce Order Internal Use Only DO Not Attach Compendium DO Not Attach Compendium, Do Not Delete/merge, [id number] 04/05/2023 09:44:52 04/05/20 23 04/05/2023 urina lysis , dipst ick Color Dark Yellow Not Available In-Office Order Internal Use Only DO Not Attach Compendium DO Not Attach Compendium, Do Not Delete/merge, [id number] 04/05/2023 09:44:52 07/03/19 24 07/02/2023 US, magda reilly No observ ation record ed. [facility] [address], [place], [address], 07/04/2023 10:32:44 Result Notes None recorded. 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 03 Completed 2016 A[place] [facility] 8 15:29:22 Group B Streptoc occus carrier 16220711398 03 Active 2016 [place] [facility] 8 15:29:22 Hypothyr oidism 87824334 Completed 2016 AMA [place] [facility] 8 15:29:22 Hypothyr oidism 66960579 Active 2016 Saadia [place]irst[place] [facility] 8 15:29:22 Recurren t miscarri age 375476221 Active Saadia [place] [facility] 8 15:29:22 High risk pregnanc y 89308400 Completed 2017 Saadia [place] [facility] 8 15:29:22 High risk pregnanc y 57734696 Active 2017 Saadia [place] [facility] 8 15:29:22 Ventricu lar septal defect 63441075 Completed 2017 s/p surgery 1990 Saadia [place]irst[place] [facility] 8 15:29:22 Ventricu lar septal defect 52139537 Active 2017 s/p surgery 1990 Saadia [place]irst[place] [facility] 8 15:29:22 Smoker 78964928 Completed 2017 Saadia [place] [facility] 8 15:29:22 Smoker 82678147 Active 2017 Saadia [place] [facility] 8 15:29:22 Delivery by elective section 698744466 Completed 11/19/19 18 Saadia [place] [facility] 8 15:29:22 Deliveri es by 262718433 Active 2019 Jorge Alberto [place] [facility] 0 09:51:33 Tobacco user 252400157 Active 2021 Carol Mendoza APN, FNP-C Attn: Tennille decker,[address] [place], [address], [place] [facility] 2 14:36:48 Vitamin D deficien cy 02590705 Active 2021 Carol Mendoza APN, FNP-C Attn: Tennille decker,[address] [facility], [place], [address], [place] [facility] 2 14:36:50 Irritabl e bowel syndrome 99064773 Completed 05/03/2018 Jorge Alberto [place] [facility] 9 16:45:37 Bacteria l vaginosi s 620128363 Active Kiana [place] [facility] 6 16:37:56 Irritabl e bowel syndrome 80327791 Completed [place] [facility] 6 16:37:56 Antenata l care for woman with history of recurren t miscarri age Completed 10/27/2017 Jorge Alber[place] [facility] 8 16:08:00 Antenata l care for woman with history of recurren t miscarri age Completed K[place] [facility] 6 16:37:56 Vitamin D deficien cy 14687217 Completed 10/27/2017 Carol Mendoza APN, FLOORWORKER DISTRIBUTOR-C Attn: Tennille g,[address] [facility], [place], [address] [facility] 2 14:36:50 Vitamin D deficien cy 95499033 Completed Kiana [place] [facility] 6 16:37:56 Varicell a 34817925 Active K[place] [facility] 6 16:37:57 Varicell a 82080440 Completed [place] [facility] 6 16:37:57 Threaten ed miscarri age 70940829 Completed 10/27/2017 [place] Alber[place] [facility] 8 16:07:57 Threaten ed miscarri age 21467751 Completed K[place] [facility] 6 16:37:56 Constipa tion 48020308 Completed 10/27/2017 [place] [facility] 8 16:08:15 Constipa tion 88503953 Completed K[place] [facility] 6 16:37:56 Bacteria l vaginosi s 825379058 Completed Kiana Herrera null, [place] - [facility] 6 16:37:56 Missed miscarri age 01739551 Completed 10/27/2017 Jorge Alberto [place] [facility] 8 16:08:10 Missed miscarri age 10406521 Completed Kiana Her[place] [facility] 6 16:37:56 Disorder of stomach 23319428 Completed 10/27/2017 Jorge Alberto [place] [facility] 8 16:08:07 Disorder of stomach 42726541 Completed K[place] 6 16:37:56 Dysmenor ashley 837867346 Active Jorge Alberto [place] [facility] 6 11:45:45 Depressi ve disorder 40405889 Active [place] Alber[place] [facility] 6 12:08:34 Vaginiti s 72159477 Active Dakotah Monroe [place] [facility] 6 00:54:12 Acute urinary tract infectio n 717990888 Active Jorge Alber[place] [facility] 6 18:53:18 Obesity 417729630 Active 2016 Jorge Alberto [place] [facility] 7 17:50:35 Problem Notes None recorded. Procedures Surgical History Date Name Laterality Status Provider Name and Address Organization Details Recorded Time 09/26/19 20 Date of Last Pap Smear completed Saadia [place] [facility] 09/17/2020 10:02:07 05/03/19 19 IUD Insertion completed Jorge Alberto [place] [facility] 05/03/2018 17:36:06 01/06/20 18 Cholecystectomy completed [place]adia [place]on [place] [facility] 01/16/2018 15:21:25 11/19/19 18 delivery completed Supriya [place]ds[place] [facility] 12/05/2017 13:48:43 04/25/19 10 Colposcopy completed Lori [place] [facility] 02/26/2015 15:03:17 04/25/19 08 Dilation and Curettage completed Lori AMA [place] [facility] 02/26/2015 15:03:17 04/25/18 91 Heart Surgery completed Jorge Alberto [place] - [facility] 11/18/2016 17:09:35 Imaging Results Imaging Date Name Status LastModified by Organiz ation Details LastModified Time 07/02/2023 US, [facility] [address], [place], [address], 07/04/2023 10:32:44 Procedure Notes None recorded. Medical Equipment None Reported. Allergies No known drug allergies Medications Name Sig Start Date Stop Date Status Note LastModified by Organization Details LastModified Time Prescript ion - Change 05/04 completed Not Available Not Available Not Available multivita min tablet TK ONE T PO QD 03/12 completed Not Available Not Available Not Available cyclobenz aprine 10 mg tablet 09/17 completed Not Available Not Available Not Available amoxicill in 500 mg capsule Take 1 capsule every 8 hours by oral route for 14 days. 08/19 completed Not Available Not Available Not Available medroxypr ogesteron e 10 mg tablet 06/09 completed Not Available Not Available Not Available Mirena 21 mcg/24 hr (up to 8 years) 52 mg intrauter ine device Take by intraute rine route. active Not Available Not Available No t Available metformin 500 mg tablet Take 1 tablet twice a day by oral route. 05/04 completed Not Available Not Available Not Available bupropion HCl SR 150 mg tablet,12 hr sustained -release TAKE ONE TABLET BY MOUTH TWICE DAILY 04/05 completed Not Available Not Available Not Available doxycycli ne hyclate 100 mg capsule 08/19 completed Not Available Not Available Not Available citalopra m 40 mg tablet Take 1 tablet every day by oral route. 11/18 completed Not Available Not Available Not Available cetirizin e 10 mg tablet TAKE 1 TABLET BY MOUTH DAILY FOR 7 DAYS 04/05 completed Not Available Not Available Not Available azithromy sina 250 mg tablet TK 2 TS PO ON DAY 1, THEN TK 1 T PO D FOR 4 DAYS 07/06 completed Not Available Not Available Not Available ibuprofen 800 mg tablet TAKE 1 TABLET BY MOUTH THREE TIMES DAILY NEEDED FOR CRAMPS active Not Available Not Available No t Available fluconazo le 150 mg tablet TAKE 1 TABLET BY MOUTH DAILY 04/05 completed Not Available Not Available Not Available hydrocodo ne 5 mg-acetam inophen 325 mg tablet 05/03 completed Not Available Not Available Not Available fluconazo le 200 mg tablet 03/04 completed Not Available Not Available Not Available phenazopy ridine 200 mg tablet TAKE 1 TABLET BY MOUTH THREE TIMES DAILY NEEDED. MAY TURN URINE ORANGE 01/06 completed Not Available Not Available Not Available metronida zole 0.75 % (37.5 mg/5 gram) vaginal gel INSERT 1 APPLICAT ORFUL VAGINALL Y DAILY AT BEDTIME FOR 5 DAYS 04/05 completed Not Available Not Available Not Available ondansetr on HCl 4 mg tablet 05/03 completed Not Available Not Available Not Available sertralin e 100 mg tablet Take 1 tablet every day by oral route. 10/22 completed Not Available Not Available Not Available terconazo le 0.8 % vaginal cream Insert 1 applicat orful every day by vaginal route for 3 days. 09/25 completed Not Available Not Available Not Available penicilli n V potassium 500 mg tablet Take 1 tablet twice a day by oral route for 10 days. 11/03 completed Not Available Not Available Not Available metronida zole 500 mg tablet Take 1 tablet twice a day by oral route. 09/25 completed Not Available Not Available Not Available hydroxyzi ne HCl 50 mg tablet Take 1 tablet 4 times a day by oral route as needed. 06/15 completed Not Available Not Available Not Available sulfameth oxazole 800 mg-trimet hoprim 160 mg tablet TAKE 1 TABLET BY MOUTH EVERY 12 HOURS 01/06 completed Not Available Not Available Not Available omeprazol e 40 mg capsule,d elayed release 06/15 completed Not Available Not Available Not Available levothyro xine 25 mcg tablet TAKE 1 TABLET BY MOUTH EVERY DAY active has not been taking Not Available Not Available Not Available levothyro xine 75 mcg tablet TAKE 1 TABLET BY MOUTH EVERY DAY IN THE MORNING 03/12 completed Not Available Not Available Not Available Aci-Jel 0.921 %-0.7 %-0.025 % vaginal gel as directed 08/19 completed Not Available Not Available Not Available Vitamin tablet Take 1 tablet every day by oral route as directed for 90 days. 12/05 completed Not Available Not Available Not Available oxycodone -acetamin ophen 5 mg-325 mg tablet 12/05 completed Not Available Not Available Not Available amoxicill in 875 mg tablet active Not Available Not Available Not Available famotidin e 20 mg tablet Take 1 tablet twice a day by oral route. active Not Available Not Available No t Available clindamyc in 1 % topical gel APPLY TOPICALL Y TO THE AFFECTED AREA EVERY MORNING AND EVERY NIGHT AT BEDTIME FOR 10 DAYS 01/06 completed Not Available Not Available Not Available DOK 100 mg capsule 12/05 completed Not Available Not Available Not Available ciproflox acin 0.3 % eye drops SHAKE LIQUID AND INSTILL 2 DROPS IN RIGHT EYE TWICE DAILY FOR 7 DAYS 04/05 completed Not Available Not Available Not Available cephalexi n 500 mg capsule 05/03 completed Not Available Not Available Not Available naproxen sodium 550 mg tablet Take 1 tablet twice a day by oral route. 2015 active Not Available Not Available Not Avai lable oseltamiv ir 75 mg capsule 03/04 completed Not Available Not Available Not Available levothyro xine 125 mcg tablet Take 1 tablet every day by oral route. 12/05 completed Not Available Not Available Not Available nystatin 100,000 unit/gram topical cream APPLY TOPICALL Y TO THE AFFECTED AREA TWICE DAILY 01/06 completed Not Available Not Available Not Available ranitidin e 150 mg tablet 12/05 completed Not Available Not Available Not Available levothyro xine 150 mcg tablet Take 1 tablet every day by oral route in the morning. 2017 active Not Available Not Available Not Avai lable progester one micronize d 200 mg capsule Take 1 capsule twice a day by oral route. 12/05 completed Not Available Not Available Not Available betametha sone dipropion ate 0.05 % topical cream APPLY A THIN LAYER TO THE AFFECTED AREA(S) BY TOPICAL ROUTE ONCE DAILY 12/05 completed Not Available Not Available Not Available omeprazol e 20 mg capsule,d elayed release 01/16 completed Not Available Not Available Not Available folic acid 1 mg tablet TAKE 4 TABLETS BY MOUTH EVERY DAY 12/05 completed Not Available Not Available Not Available clindamyc in 2 % vaginal cream INSERT 1 APPLICAT ORFUL IN THE VAGINA ONCE FOR 7 DAYS 04/05 completed Not Available Not Available Not Available ceftriaxo ne 500 mg solution for injection Take 500 mg by injectio n route. 08/19 completed Not Available Not Available Not Available ergocalci ferol (vitamin D2) 1,250 mcg (50,000 unit) capsule Take 1 capsule every week by oral route. 2022 active Not Available Not Available Not Avai lable levofloxa sina 500 mg tablet 03/24 completed Not Available Not Available Not Available letrozole 2.5 mg tablet Take 1 tablet every day by oral route. 07/07 completed Not Available Not Available Not Available methylpre dnisolone 4 mg tablets in a dose pack FOLLOW PACKAGE DIRECTIO NS 03/12 completed Not Available Not Available Not Available albuterol sulfate HFA 90 mcg/actua tion aerosol inhaler INHALE 1 TO 2 PUFFS BY MOUTH EVERY 4 TO 6 HOURS NEEDED 04/05 completed Not Available Not Available Not Available ParaGard T 380A 380 square mm intrauter ine device 04/03 completed Not Available Not Available Not Available dicyclomi ne 10 mg capsule Take 1 capsule 3 times a day by oral route as needed. 11/18 completed Not Available Not Available Not Available naproxen 500 mg tablet TAKE 1 TABLET BY MOUTH TWICE DAILY NEEDED FOR PAIN 01/06 completed Not Available Not Available Not Available amoxicill in 875 mg-potass ium clavulana te 125 mg tablet TAKE 1 TABLET BY MOUTH TWICE DAILY FOR 10 DAYS 03/12 completed Not Available Not Available Not Available melatonin ER 3 mg tablet,ex tended release Take 1 tablet every day by oral route at bedtime. 03/04 completed Not Available Not Available Not Available Adult Low Dose Aspirin 81 mg tablet,de layed release Take 1 tablet every day by oral route. 08/03 completed Not Available Not Available Not Available escitalop britni 10 mg tablet TAKE 1 TABLET BY MOUTH DAILY at HS 04/05 completed Not Available Not Available Not Available Junel FE 1.5/30 (28) 1.5 mg-30 mcg (21)/75 mg (7) tablet Take 1 tablet every day by oral route. 05/03 completed Not Available Not Available Not Available nitrofura ntoin monohydra te/macroc rystals 100 mg capsule TAKE 1 CAPSULE BY MOUTH EVERY 12 HOURS FOR 5 DAYS 04/29 completed Not Available Not Available Not Available Ramakrishna s Butt Paste 16 % topical ointment APPLY 1 GRAM TO THE AFFECTED AREA TWICE DAILY 01/06 completed Not Available Not Available Not Available lactulose 10 gram/15 mL oral solution Take 15 mL every day by oral route. 05/03 completed Not Available Not Available Not Available RepHresh vaginal gel Insert 8 g as needed by vaginal route. 09/25 completed Not Available Not Available Not Available ferrous gluconate 324 mg (38 mg iron) tablet Take 1 tablet twice a day by oral route. 12/05 completed Not Available Not Available Not Available Calcium 600 + D(3) 600 mg-10 mcg (400 unit) tablet Take 1 tablet twice a day by oral route. 09/17 completed Not Available Not Available Not Available Tilia Fe 1-20 (5)/1-30( 7)/1mg-35 mcg(9) tablet Take 1 tablet every day by oral route for 28 days. 05/03 completed Not Available Not Available Not Available Calcium with Vitamin D3 600 mg (carbonat e)-10 mcg (400 unit) capsule Take 1 capsule twice a day by oral route. 08/03 completed Not Available Not Available Not Available RepHresh Pro-B 2.5 billion cell capsule 1 po daily 09/25 completed Not Available Not Available Not Available Viibryd 40 mg tablet 11/18 completed Viibryd Not Available Not Available Not Available 28 mg iron-800 mcg tablet 11/18 completed Not Available Not Available Not Available lactulose 10 gram/15 mL (15 mL) oral solution Take 15 mL every day by oral route. 2014 active Not Available Not Available Not Avai lable Ramakrishna s Butt Paste 40 % topical ointment Apply 1 g twice a day by topical route. 01/06 completed Not Available Not Available Not Available calcium 600 mg (as carbonate )-vitamin D3 20 mcg (800 unit) tablet Take 1 tablet twice a day by oral route. 06/15 completed Not Available Not Available Not Available Linzess 145 mcg capsule TAKE ONE CAPSULE BY MOUTH EVERY DAY 01/16 completed Not Available Not Available Not Available Yoli 14 mcg/24 hr (up to 3 years) 13.5 mg intrauter ine device Take 1 device by intraute rine route. 01/06 completed Not Available Not Available Not Available Xulane 150 mcg-35 mcg/24 hr transderm al patch Apply 1 patch every week by transder mal route. 05/03 completed Not Available Not Available Not Available Vol-Plus 27 mg iron-1 mg tablet 12/05 completed Not Available Not Available Not Available Caltrate Gummy Bites 250 mg-10 mcg (400 unit) chewable tablet Take 1 tablet twice a day by oral route. 2015 active Not Available Not Available Not Avai lable Paxlovid 300 mg (150 mg x 2)-100 mg tablets in a dose pack TK 2 NIRMATRE LVIR TS AND 1 RITONAVI R T TOGETHER PO BID FOR 5 DAYS BID FOR 5 DAYS 04/29 completed Not Available Not Available Not Available Vitals Date Recorded Body height Body mass index (BMI) Body weight Oxygen saturation Oxygen saturation in Arterial blood by Pulse oximetry Heart rate Respiratory rate Body temperature Systolic blood pressure Diastolic blood pressure Provider Name and Address Organization Details Last Updated DateTime 2 162.56 cm 34 kg/m2 20122.2 9 g 98 % 98 % 78 /min 16 /min 97.5 [degF] 120 mm[Hg] 80 mm[Hg] Cat Peacock [place] - [facility] 2 14:15:55 Date Recorded Body height Body mass index (BMI) Body weight Oxygen saturation Oxygen saturation in Arterial blood by Pulse oximetry Heart rate Respiratory rate Body temperature Systolic blood pressure Diastolic blood pressure Provider Name and Address Organization Details Last Updated DateTime 2 162.56 cm 35.2 kg/m2 47327.4 4 g 98 % 98 % 78 /min 16 /min 97.5 [degF] 116 mm[Hg] 84 mm[Hg] Ann HopkinsAMA rouse [facility] 2 14:49:09 Date Recorded Body height Provider Name an d Address Organization Details Last Updated DateTime 04/29/2022 162.56 cm Cat Peacock [facility] 04/29/2022 15:31:49 Date Recorded Body height Body mass index (BMI) Body weight Oxygen saturation Oxygen saturation in Arterial blood by Pulse oximetry Heart rate Respiratory rate Body temperature Systolic blood pressure Diastolic blood pressure Provider Name and Address Organization Details Last Updated DateTime 3 162.56 cm 36 kg/m2 46001.4 g 97 % 97 % 88 /min 16 /min 98 [degF] 114 mm[Hg] 72 mm[Hg] Cat Peacock [facility] 3 14:58:51 Date Recorded Body height Body mass index (BMI) Body weight Oxygen saturation Oxygen saturation in Arterial blood by Pulse oximetry Heart rate Respiratory rate Body temperature Systolic blood pressure Diastolic blood pressure Provider Name and Address Organization Details Last Updated DateTime 3 162.56 cm 35.5 kg/m2 44203.6 2 g 99 % 99 % 80 /min 16 /min 97.3 [degF] 110 mm[Hg] 74 mm[Hg] JODY Nunez [facility] 3 09:36:24 Social History Question Answer Notes LastModified by Organizat ion Details LastModified Time Tobacco Smoking Status Former Smoker quit 07/2022 [facility] 09:34:08 Do You Have An Advance Directive? No Information not available 02/26/2015 What Is Your Level Of Alcohol Consumption? Occasional Information not available 01/06/2022 If You Are , What Was Your Level Of Alcohol Consumption Prior To ? None [email or web address] Information not available 01/06/2022 How Many Years Have You Consumed Alcohol? 0 [email or web address] Information not available 05/21/2015 Is Anesthesia Consult Planned? No Information not available 05/21/2015 Plan No Information not available 05/21/2015 Are You Blind Or Do You Have Difficulty Seeing? No [email or web address] Information not available 01/06/2022 Is Blood Transfusion Acceptable In An Emergency? Yes Information not available 02/26/2015 What Is Your Level Of Caffeine Consumption? Heavy Soda [email or web address] Information not available 11/18/2016 Live With Cats/exposure To Cat Litter No Information not available 05/21/2015 How Much Tobacco Do You Chew? None Information not available 02/26/2015 In The 14 Days Before Symptom Onset, Have You Had Close Contact With A Laboratory-confi rmed COVID-19 While That Case Was Ill? No Information not available 09/17/2020 In The 14 Days Before Symptom Onset, Have You Had Close Contact With A Person Who Is Under Investigation For COVID-19 While That Person Was Ill? No Information not available 09/17/2020 Have You Been To An Area Known To Be High Risk For COVID-19? 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 Yes [email or web address] Information not available 01/06/2022 Are You Deaf Or Do You Have Serious Difficulty Hearing? No [email or web address] Information not available 01/06/2022 What Type Of Diet Are You Following? REGULAR Information not available 02/26/2015 Which Illicit Or Recreational Drugs Have You Used? Marijuana Information not available 09/17/2020 Do You Or Have You Ever Used E-cigarettes Or Vape? Current User Of Electronic Cigarettes 5% [email or web address] Information not available 01/06/2022 Education 12 Information not available 02/26/2015 What Is The Highest Grade Or Level Of School You Have Completed Or The Highest Degree You Have Received? [id number] Information not available 09/17/2020 What Is Your Occupation? [place] Information not available 04/05/2023 Have There Been Any Changes To Your Family Or Social Situation? No Information not available 05/21/2015 Frequent Air Travel No Information not available 05/21/2015 Are There Any Guns Present In Your Home? No Information not available 01/06/2022 Illicit Drugs Pre- Pt Denies [email or web address] Information not available 05/21/2015 How Many Years Have You Used Illicit Or Recreational Drugs? 0 [email or web address] Information not available 05/21/2015 Live Alone Or With Others? With Others Information not available 11/18/2016 Marital Status Single [email or web address] Informatio n not available 05/21/2015 What Was The Date Of Your Most Recent Tobacco Screening? 04/05/2023 Information not available 04/05/2023 How Many Children Do You Have? 1 Information not available 05/03/2018 What Is Your Current Pack Years? [email or web address] Information not available 09/17/2020 Performs Monthly Self-breast Exam? No Information not available 05/03/2018 Do You Have Any Pets? No Information not available 09/17/2020 Do You Use Protection During Sex? No Information not available 02/26/2015 What Is Your Relationship Status? Single Information not available 02/26/2015 Do You Use Your Seat Belt Or Car Seat Routinely? Yes Information not available 09/17/2020 Seat Belts Used Routinely Yes Information not available 02/26/2015 Are You Sexually Active? No Information not available 05/03/2018 Do You Have Smoke And Carbon Monoxide Detectors In Your Home? Yes Information not available 05/21/2015 At What Age Did You Start Smoking Tobacco? 19 Information not available 02/26/2015 Are You Passively Exposed To Smoke? Yes Information not available 05/21/2015 Do You Or Have You Ever Used Smokeless Tobacco? Never Used Smokeless Tobacco Information not available 09/26/2019 How Much Tobacco Do You Smoke? 0.25 PPD [email or web address] Information not available 07/06/2022 Smoking Pre- Yes Information not available 05/21/2015 General Stress Level Low Information not available 02/26/2015 Do You Feel Stressed (tense, Restless, Nervous, Or Anxious, Or Unable To Sleep At Night)? [id number] Information not available 04/05/2023 Do You Use Any Illicit Or Recreational Drugs? Yes Marijuanna Rarely [email or web address] Information not available 01/06/2022 Do You Use Sunscreen Routinely? Yes Information not available 02/26/2015 Has Tobacco Cessation Counseling Been Provided? Yes Information not available 09/11/2018 On What Date Was Tobacco Cessation Counseling Provided? 04/05/2023 Information not available 04/05/2023 How Many Years Have You Smoked Tobacco? 13 04/29/22 Information not available 04/29/2022 Have You Used IV Drugs? No Information not available 09/17/2020 Do You Or Have You Ever Used Any Other Forms Of Tobacco Or Nicotine? Yes [email or web address] Information not available 01/06/2022 How Many Years Have You Used E-cigarettes Or Vape? 8 Off And On 04/05/23 Information not available 04/05/2023 Sex: Unknown Functional Status Question Answer Note LastModified by Organization D etails LastModified Time Are you able to care for yourself? Yes [email or web address] Information n ot available 01/06/2022 What is your exercise level? None [email or web address] Information not available 03/12/2022 Mental Status None recorded. Family History Relationship Description Onset Age of this Age Resolved Age Notes LastModified by Organization Details LastModified Time Mother Rheumatoid arthritis Not available 05/04 10:34:48 Mother Irregular heart beat [email or web address] Not available 04/25 10:35:09 Mother Diabetes mellitus [email or web address] Not available 05/04 10:35:19 Mother Malignant tumor of vulva [email or web address] Not available 05/04 10:35:33 Mother Degenerative disorder [email or web address] Not available 05/04 10:36:03 Mother Non-alcoholi c fatty liver [email or web address] Not available 05/04 10:36:17 Mother Pulmonary embolism 53 [email or web address] Not available 01/06 14:10:55 Maternal Aunt Non-alcoholi c fatty liver [email or web address] Not available 05/04 10:36:39 Maternal Aunt Malignant tumor of breast [email or web address] Not available 05/04 10:37:14 Father Malignant neoplasm of bone [email or web address] Not available 11/10 16:57:20 Father Hypertensive disorder [email or web address] Not available 01/06 14:10:40 Medical History Condition Response Other N Atrial Fibrillation N High Blood Pressure N Breast Cancer N Depression N COPD N Blood Clots N Lung Disease N Breast Problem N Anesthesia Complications N Headaches/Migraines Y Anxiety Disorder N Muscle, Joint, or Bone Problems N Arthritis N Infertility N Polyps N Acid Reflux (GERD) N Cancer N Stroke N Endometriosis N High Cholesterol N Liver Disease N Fibromyalgia N Headaches N Kidney Disease N Heart Problems N Thyroid Problems Y Kidney or Bladder Problems N GI Problems N Acne N Skin Problems N Eating Disorder N Anemia Y Heart Attack (NE) N Ovarian Cancer N Diabetes N Blood Transfusions N Seizures/Epilepsy N Abuse/Domestic Violence N Allergies Y Asthma N Hepatitis N Heart Disease Y Pre-Eclampsia N Hypertension N Osteoporosis N Heart Failure N Gynecological History Statement/Question Response Abnormal Pap Y Date of LMP 08/23/2021 On BCP's at Conception? N STIs/STDs Y HPV Vaccine Y Age at Menarche 13 Current Control Method IUD Age at First Child 27 Sexually Active? Y Menses Monthly Y Date of Last Pap Smear 09/26/2019 Sexual Problems? N LMP Approximate Desired Control Method IUD Obstetrics History GPAL:G 3 P 1 0 2 1 Type Value Multiple Births 0 Full Term 1 Induced 0 Spontaneous 2 Premature 0 Living 1 Ectopics 0 Total 3 Immunizations Vaccine Type Date Status Note Provider Nam e and Address Organization Details Recorded Time HPV9 09/26/2019 completed Saadia Hairston MA [facility] 09/26/2019 13:19:56 Past Encounters Encounter ID Performer Location Encounter Start Date Encounter Closed Date Diagnosis/Indication Diagnosis SNOMED-CT Code Diagnosis ICD10 Code [id number] Jorge Alberto Curran ([facility]) [address] [place] [address] 02/26/2015 14:10:36 02/26/2015 15:55:52 Gynecologic examination 82537037 Z01.419 Irritable bowel syndrome 38746867 K58.9 [id number] Kiana Curran HC ([facility]) [address] [place] [address] 05/21/2015 13:58:16 05/21/2015 16:51:18 Routine care 985187610 Z34.81 Irritable bowel syndrome 21949561 K58.9 care for woman with history of recurrent miscarriage 657220024 O26.21 [id number] Kiana Curran HC ([facility]) [address] [place] [address] 06/05/2015 15:24:47 06/12/2015 11:55:00 Threatened miscarriage 50429444 O20.0 Constipation 39499617 K5 9.00 [id number] Kiana Curran ([facility]) [address] [place] [address] 0 06/11/2015 14:04:59 06/11/2015 16:05:04 Bacterial vaginosis 615696619 N76.0 Missed miscarriage 35030 004 O02.1 care for woman with history of recurrent miscarriage 769619560 O26.21 [id number] Dakotah Curran ([facility]) [address] [place] [address] 0 07/08/2015 11:15:58 07/08/2015 12:13:32 Postoperative visit 226775016 Z09 Vaginitis 67958920 N76.0 [id number] Jorge Alberto Curran ([facility]) [address] [place] [address] 0 11/18/2016 15:59:28 11/19/2016 16:26:45 History of recurrent miscarriage - not 672817000 N96 Reproducti ve care management 998922574 Z31.9 Polycystic ovaries 39474 008 E28.2 Family lana nning surveillance 894737665 Z30.09 History of abnormal cervical Papanicolaou smear 156109761 Z87.42 Obesity 235745344 E66.9 [id number] Jorge Alberto Curran ([facility]) [address] [place] [address] 0 03/24/2017 14:22:17 03/24/2017 16:45:35 Routine care 000576973 Z34.80 care for woman with history of recurrent miscarriage 305211000 N96 Varicella 43050486 B01.9 Depressive disorder 3548 9007 F32.9 Obesity 896758816 E66.9 [id number] CHARITY Escamilla HC ([facility]) [address] [place] [address] 0 04/21/2017 14:58:23 04/21/2017 17:06:34 Routine care 573921382 Z34.80 [id number] Jorge Alberto Curran ([facility]) [address] [place] [address] 0 05/04/2017 10:14:40 05/04/2017 13:38:39 Routine care 275658463 Z34.[address] reptococcus carrier 5812614280 103 Z22.330 Hypothyroidism 21510832 E03.9 Depressive disorder 3548 9007 F32.9 Recurrent miscarriage 10 1310684 N96 High risk 4720 0007 O09.91 Ventricula r septal defect 11655204 Q21.0 Smoker 31835781 F17.944 [id number] Jorge Alberto Curran ([facility]) [address] [place] [address] 0 06/09/2017 15:50:44 06/13/2017 12:53:44 Routine care 538859203 Z34.80 High risk 4720 0007 O09.91 Ventricula r septal defect 92803442 Q21.[address] reptococcus carrier 2723116632 103 Z22.330 Recurrent miscarriage 10 0056058 N96 Hypothyroidism 25589806 E03.9 Irritable bowel syndrome 98090030 K58.9 [id number] Jorge Alberto Curran ([facility]) [address] [place] [address] 0 07/07/2017 15:44:22 07/07/2017 17:33:49 Routine care 867865668 Z34.80 Chronic id iopathic constipation 54809398 K59.04 Hypothyroidism 33686796 E03.9 Anemia 369266246 D64.9 [id number] Jorge Alberto Curran ([facility]) [address] [place] [address]65[address] 0 08/03/2017 09:54:13 08/03/2017 12:04:29 Routine care 920262049 Z34.80 Risk of ex posure to communicable disease 410026546 Z20.9 Ventricula r septal defect 88776708 Q21.0 High risk 4720 0007 O09.91 Hypothyroidism 56201802 E03.9 [id number] Jorge Alberto Curran ([facility]) [address] [place] [address] 0 09/15/2017 15:49:54 09/20/2017 14:13:44 Routine care 868729614 Z34.80 High risk 4720 0007 O09.91 Ventricula r septal defect 54713291 Q21.0 Recurrent miscarriage [address] reptococcus carrier 2294274160 103 Z22.330 Hypothyroidism 44533857 E03.9 [id number] Jorge Alberto Curran ([facility]) [address] [place] [address] 0 10/20/2017 14:44:17 10/20/2017 15:47:29 Routine care 983647565 Z34.80 - induced hypertension 13007334 O13.9 Hypothyroidism 11492550 E03.9 High risk 4720 0007 O09.91 Ventricula r septal defect 82461325 Q21.0 Smoker 13895897 F17.[address] reptococcus carrier 8326805173 103 Z22.330 Recurrent miscarriage 10 9472225 N96 Candidiasis of vagina 72 882838 B37.3 [id number] Jorge Alberto Curran ([facility]) [address] [place] [address]27[address]781 0 10/27/2017 15:11:54 10/27/2017 16:15:06 Routine care 724842143 Z34.80 High risk 4720 0007 O09.91 Recurrent miscarriage 10 9074901 N96 Hypothyroidism 73569180 E03.9 Depressive disorder 3548 9007 F32.9 Bacterial vaginosis 4197 58888 N76.0 Smoker 40503357 F17.200 Ventricula r septal defect 31456753 Q21.0 [id number] Jorge Alberto Curran ([facility]) [address] [place] [address]37[address] 0 11/03/2017 15:06:45 11/03/2017 16:49:40 Routine care 357624811 Z34.80 High risk 4720 0007 O09.91 Recurrent miscarriage 10 1036127 N96 Hypothyroidism 74390291 E03.9 Depressive disorder 3548 9007 F32.9 Bacterial vaginosis 4197 91468 N76.0 Smoker 75016856 F17.200 Ventricula r septal defect 53812602 Q21.0 Eczema 33451641 L30.9 [id number] KYLE Magallanes ([facility]) [address] [place] [address] 0 11/10/2017 15:45:06 11/10/2017 17:24:11 Routine care 092839233 Z34.80 Ventricula r septal defect 49167866 Q21.0 High risk 4720 0007 O09.91 Smoker 91605382 F17.[address] reptococcus carrier 9452392544 103 Z22.330 Recurrent miscarriage 10 9635014 N96 Hypothyroidism 21731449 E03.9 Depressive disorder 3548 9007 F32.9 Obesity 907600229 E66.9 Delivery b y elective section 570922931 Z37.9 [id number] Jorge Alberto Curran ([facility]) [address] [place] [address]63[address] 0 12/05/2017 12:49:53 12/05/2017 14:18:49 state 89336340 Z39.2 Urethritis 83539485 N34. 2 [id number] Jorge Alberto Curran ([facility]) [address] [place] [address] 71615[address] 0 01/16/2018 14:52:24 01/16/2018 16:16:06 care 343080038 Z39.2 Exposure t o sexually transmissible disorder 414205059 Z20.2 Family lana nning surveillance 585201993 Z30.09 [id number] Jorge Alberto Curran ([facility]) [address] [place] [address] 89[address] 0 05/03/2018 16:12:56 05/06/2018 03:47:02 Family planning surveillance 372047733 Z30.09 Insertion of intrauterine contraceptive device 78801364 Z30.305 [id number] Jorge Alberto Curran ([facility]) [address] [place] [address] 65694[address]341 0 06/15/2018 15:29:58 06/15/2018 17:03:53 Gynecologic examination 94715468 Z01.419 Family lana nning surveillance 406558268 Z30.09 Surveillan ce of intrauterine device contraception done 2538561732 19104 Z30.40 [id number] Jorge Alberto CooleySeng Magdy [facility] ([facility]) [address] [place] [address]858[address] 0 09/26/2019 09:30:14 09/27/2019 06:37:05 Ventricular septal defect 77832532 Q21.0 Recurrent miscarriage 10 5755957 N96 Hypothyroidism 11314684 E03.[address] reptococcus carrier 9874788425 103 Z22.330 Depressive disorder 3548 9007 F32.9 Smoker 86028148 F17.200 Deliveries by 342950247 O82 Exposure t o sexually transmissible disorder 145820838 Z20.2 Gynecologi c examination 53527649 Z01.419 Z11.51 Positive s creening for depression on PHQ-9 (Patient Health Questionnaire 9) 3530267370 82985 Z13.89 Administra tion of viral vaccine 28332266 Z23 Bacterial vaginosis 4197 92459 N76.0 [id number] [facility] [address] [place] [address]909[address] 0 03/04/2020 11:58:13 03/13/2020 12:27:59 Surveillance of intrauterine device contraception done 2882348364 47554 Z30.40 Tampon ret ained in vagina 846638719 Z18.89 Exposure t o sexually transmissible disorder 360722735 Z20.2 Family lana nning surveillance 457179778 Z30.09 Recurrent urinary tract infection 962889497 N39.0 [id number] [facility] [address] [place] [address]78[address] 0 09/17/2020 09:57:16 09/19/2020 14:57:04 Venereal disease screening 874968733 Z11.3 Bacterial vaginosis 4197 41300 N76.0 Candidiasis of vagina [address] reptococcus carrier 6847198871 103 Z22.330 Surveillan ce of intrauterine device contraception done 2492617590 19104 Z30.40 Family lana nning surveillance 673503056 Z30.09 Deliveries by 333688365 O82 Ventricula r septal defect 59036351 Q21.0 Hypothyroidism 62324811 E03.9 Depressive disorder 3548 9007 F32.9 Smoker 71378123 F17.980 [id number] MD Teo Solanoto (Adult Med) [address] [place] [address] 01/06/2022 13:48:51 01/13/2022 12:23:05 Adult health examination 423484608 Z00.01 Recurrent urinary tract infection 700855409 N39.0 Hypothyroidism 76871698 E03.9 Obesity 103370213 E66.9 Vitamin D deficiency 347 35468 E55.9 Tobacco user 821276690 Z 72.0 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 [id number] Carol Mendoza APN, FNP-C [place] (Adult Med) [address] [place] [address] 03/12/2022 14:36:47 03/16/2022 11:34:32 Dysuria 08267623 R30.0 Hypothyroidism 59104284 E03.9 Obesity 051396338 E66.9 Mixed anxi ety and depressive disorder 645337297 F41.8 Candidiasis of vagina 72 486131 B37.31 [id number] Carol Mendoza APN, FNP-C [place] (Adult [facility]) [address] [place] [address] 04/29/2022 14:48:51 04/30/2022 09:10:43 COVID-19 515206639 U07.1 Postviral cough 59125926 4 R05.3 Upper resp iratory infection 58237625 J06.9 Obesity 270067140 E66.9 [id number] Carol Mendoza APN, FNP-C [place] (Adult Med) [address] [place] [address] 07/06/2022 14:42:21 07/13/2022 13:44:56 Hypothyroidism 35054941 E03.9 Obesity 587725125 E66.9 Mixed anxi ety and depressive disorder 244537402 F41.8 [id number] Carol Mendoza APN, FNP-C [facility] (Adult Med) [address] [place] [address] 04/05/2023 09:25:25 04/07/2023 10:08:54 Hypothyroidism 68433756 E03.9 Vitamin D deficiency 347 56735 E55.9 Abnormal urine odor 8769 003 R82.90 Cholesterol screening 27 0117244 Z13.220 Obesity 473595092 E66.9 Electronic cigarette user 792683941 Z72.89 Health Concerns Section Related Observation LastModified by Organization Detai ls LastModified Time None Recorded Concern Status LastModified by Organization Details LastModified Time None Recorded Advance Directives Directive N: Payers Encounter Date Sequence Insurance Name Policy Number Policy Mai Covered Member ID Mai Member ID Guarantor Name 01/06/2022 1 [facility] ON OR AFTER 10/23/20 (MEDICAID REPLACEMENT - HMO) Donya Cali [id number] Donya Cali 03/12/2022 1 [facility] ON OR AFTER 10/23/20 (MEDICAID REPLACEMENT - HMO) Donya Cali [id number] Donya Viraj 04/29/2022 1 [facility] ON OR AFTER 10/23/20 (MEDICAID REPLACEMENT - HMO) Donya Cali [id number] Donya Viraj 07/06/2022 1 [facility] ON OR AFTER 10/23/20 (MEDICAID REPLACEMENT - HMO) Donya Cali [id number] Donya Viraj 04/05/2023 1 [facility] ON OR AFTER 10/23/20 (MEDICAID REPLACEMENT - HMO) Donya Cali [id number] Donya Barling Notes Date Note Type Note Provider Name and Address Organization Details Recorded Time 01/06/2022 text/html new pt to est ca re; Used to [facility] in [place]. pt c/o odor, dark urine and some dysuria for months. Was treated in July which sx improved by came back a month later. Old pcp would not refill levothyroxine because she did not get blood done. Lavern Johnson MD Attn: Accounting,[address] [facility], [place], [address], [facility] 01/13/2022 14:43:14 03/12/2022 text/html smell to urine f or awhile. pt states she started taking her bupropion again that used to be prescribed by her OBGYN Carol Mendoza APN, FNP-C Attn: Accounting,[address] [place], [address], [facility] 03/12/2022 17:24:12 04/29/2022 text/html tested positive for covid on 04/22- prescribed paxlovid and finished it but still having headaches, sore throat, runny nose, slight cough- now productivesymptoms started 04/20 with clammy, 04/22 started fever, Carol Mendoza APN, FNP-C Attn: Accounting,[address] [facility], [place], [address], [facility] 04/29/2022 15:51:16 07/06/2022 text/html pt has been taki ng Iron otc for her tiredness. Pt is still having dizzy spells occasionally;has not been consistent with thyroid medication Carol Mendoza APN, FNP-C Attn: Accounting,[address] [facility], [place], [address], [facility] 07/06/2022 20:52:40 04/05/2023 text/html Needs thyroid ch ecked for meds- not currently on thyroid medpossible UTI- lower abdomen pain. denies dysuria and frequency. Urine has odor for a week Carol Mendoza APN, FNP-C Attn: Accounting,[address] [place], [address], [facility] 04/05/2023 14:01:33 OBGyn Episode Ob Episode Information Episode Created Date Number of Fetuses Patient Bloodtype Patient rh Status Prepregnancy Weight lbs Domestic Partner Domestic Partner Phone Father Name River Driver Status 05/21/19 16 1 O Positive CLOSED Fetus Data First Name Last Name Admitted to NICU Weight (g) Sex Living Outcome Pediatric Complications Fetus ID Race Codes Race Delivery Type Demise [id number] [id number] White Problems Problem Notes Problem Name Start Date End Date Resolution Snomed Code Not e care for woman viviana addison history of recurrent miscarriage 075321391 Irritable bowel syndrome 59329 008 Varicella 55011074 Vitamin D deficiency 08633710 Constipation 82341127 Threatened miscarriage 6008328 3 Missed miscarriage 68800823 Disorder of stomach 02210291 Bacterial vaginosis 118058115 Nickolas Calculation NICKOLAS Calculation Method Initial Nickolas Date Initial Exam Date Initial Exam Provider Initial Ultrasound Date Last Menstrual Period Date Ultra Sound Weeks Gestation Conception by IVF Embryo Age at Transfer Date of Transfer 01/20/20 15 05/21/19 16 [email or web address] n 04/15/2015 0 Eighteen To Twenty Week Nickolas Update Ultra Sound Date Fundal Height At Umbil Quickening Date Ultra Sound Latest Weeks Gestation Final Nickolas Confirmed By Final Nickolas Confirmed Date Final Nickolas Date Ultra Sound Latest Days Gestation 0 01/20/20 16 0 Pre-ruslan Flowsheet Flowsheet Date 05/21/2015 Antonio Score Blood Edema Fundus Height Fundus Units Glucose Ketones Leukocytes Nitrite Labor Signs Protein Cervic Dilation Cervic Effacement Cervic Station neg trace none large 1+ Type Weight in lbs Pre/Post Dialysis Refused 179.083361475369 BP Diastolic BP Location Tested BP Systolic BP Type 64 104 sitting Fetus Heart Rate Present Fetus Movement Comments Flowsheet Date 06/05/2015 Antonio Score Blood Edema Fundus Height Fundus Units Glucose Ketones Leukocytes Nitrite Labor Signs Protein Cervic Dilation Cervic Effacement Cervic Station neg none none negative neg Type Weight in lbs Pre/Post Dialysis Refused 181.461555324071 BP Diastolic BP Location Tested BP Systolic BP Type Fetus Heart Rate Present Fetus Movement Comments ultrasound reveals yolk sac, no FHT seen. repeat HCG, progesterone today. Repeat US next week Flowsheet Date 06/11/2015 Antonio Score Blood Edema Fundus Height Fundus Units Glucose Ketones Leukocytes Nitrite Labor Signs Protein Cervic Dilation Cervic Effacement Cervic Station Type Weight in lbs Pre/Post Dialysis Refused BP Diastolic BP Location Tested BP Systolic BP Type Fetus Heart Rate Present Fetus Movement Comments Menstrual History Last Menstrual Date Menses Monthly On Bcp Conception Prior Menses Frequency Hcg Plus Date Menarche Onset Age 1204/15/2015 Genetic Screening And Infection History Question Response Note Patient's Age Will Be 35 Years Or Older At Estim ated Date of Delivery false Thalassemia (Vietnamese, Malawian, Mediterranean, Or Background): MCV < 80 false Neural Tube Defect (Meningomyelocele, Spina Bifi da, Or Anencephaly) false Congenital Heart Defect false Down Syndrome false Robert-Sachs (eg, Caodaism, Cajun, American-Chilean) f alse Avelina Disease false Sickle Cell Disease Or Trait () false Hemophilia Or Other Blood Disorders false Muscular Dystrophy false Cystic Fibrosis false Olaf's Chorea false Mental Retardation/Autism false If Yes, Was Person Tested For Fragile X? false Other Inherited Genetic Or Chromosomal Disorder false Maternal Metabolic Disorder (eg, Type 1 Diabetes , PKU) false Patient Or Baby's Father Had A Child With Defects Not Listed Above false Recurrent Loss, Or A Stillbirth false Medications (including Suppl ements, Vitamins, Herbs, OTC Drugs), Illicit/Recreational Drugs, Alcohol false If Yes, Agent(s) And Strength/Dosage false Any Other Genetic History false Live With Someone With TB Or Exposed To TB false Patient Or Partner Has History Of Genital Herpes false Rash Or Viral Illness Since Last Menstrual Perio d false History Of STD, Gonorrhea, Chlamydia, HPV, Syphi lis false Other Infection History false Delivery Information Delivery Date Delivery Type Labor Anesthesia Weeks Gestation Incision Type Labor Labor Length Hrs Delivered By Post Complications Tubal Sterilization Discharge Date Comments 6 None 8.1 false IUFD Missed Discharge Information Feeding Method Contraceptive Method Maternal HG B and HCT Levels Ob Episode Information Episode Created Date Number of Fetuses Patient Bloodtype Patient rh Status Prepregnancy Weight lbs Domestic Partner Domestic Partner Phone Father Name River Driver Status 03/24/20 17 1 O Positive 200 sarabjit cain lto undecided CLOSED Fetus Data First Name Last Name Admitted to NICU Weight (g) Sex Living Outcome Pediatric Complications Fetus ID Race Codes Race Delivery Type Bert ellsworth false 3231.84 3 M true Full Term 46650 [id number] White Primary Problems Problem Notes 10/20/17 baby boy, Bert gifford yes to circ, bottle feed, yes epidural, pt states Peds undecided, possibly,ppbc, or patch, bcp, cb-rma elective 11/18/2017 Problem Name Start Date End Date Resolution Snomed Code Not e Smoker 05/04/2017 32308779 Ventricular septal defect 05/04/2017 [id number] s/p surgery 199 1 Recurrent miscarriage [id number] 1 Group B Streptococcus carrier 03/28/2017 [id number] High risk 05/04/2017 76273709 Candidiasis of vagina 03/28/2017 7311333 0 Hypothyroidism 03/29/2017 [id number] Delivery by elective section [id number] 11/18/2017 Nickolas Calculation NICKOLAS Calculation Method Initial Nickolas Date Initial Exam Date Initial Exam Provider Initial Ultrasound Date Last Menstrual Period Date Ultra Sound Weeks Gestation Conception by IVF Embryo Age at Transfer Date of Transfer 11/22/19 17 03/24/20 16 [email or web address] n 04/14/2017 02/14/2017 7 Eighteen To Twenty Week Nickolas Update Ultra Sound Date Fundal Height At Umbil Quickening Date Ultra Sound Latest Weeks Gestation Final Nickolas Confirmed By Final Nickolas Confirmed Date Final Nickolas Date Ultra Sound Latest Days Gestation 04/14/20 17 8 [email or web address] 05/04/2017 11/22/19 18 3 Pre-ruslan Flowsheet Flowsheet Date 03/24/2017 Antonio Score Blood Edema Fundus Height Fundus Units Glucose Ketones Leukocytes Nitrite Labor Signs Protein Cervic Dilation Cervic Effacement Cervic Station neg none 5 wks none negative neg Type Weight in lbs Pre/Post Dialysis Refused 204.675761729212 BP Diastolic BP Location Tested BP Systolic BP Type 66 112 sitting Fetus Heart Rate Present Fetus Movement Comments nob Flowsheet Date 04/21/2017 Antonio Score Blood Edema Fundus Height Fundus Units Glucose Ketones Leukocytes Nitrite Labor Signs Protein Cervic Dilation Cervic Effacement Cervic Station Type Weight in lbs Pre/Post Dialysis Refused BP Diastolic BP Location Tested BP Systolic BP Type Fetus Heart Rate Present Fetus Movement Comments Flowsheet Date 05/04/2017 Antonio Score Blood Edema Fundus Height Fundus Units Glucose Ketones Leukocytes Nitrite Labor Signs Protein Cervic Dilation Cervic Effacement Cervic Station trace none 11 wks none trace Other (see comments ) neg Type Weight in lbs Pre/Post Dialysis Refused 194.638458623750 BP Diastolic BP Location Tested BP Systolic BP Type 74 122 sitting Fetus Heart Rate Present A 166 Present Fetus Movement A No Comments High risk . h/o VSD s/p surgery 1991, smoker, hypothyroidism, recurrent loss, GBS, needs to be evaluated by MFM. Level 2 US and repeat labs ordered. Goal is for pt to be seen [id number] alternating between [facility] and [facility]. Flowsheet Date 06/09/2017 Antonio Score Blood Edema Fundus Height Fundus Units Glucose Ketones Leukocytes Nitrite Labor Signs Protein Cervic Dilation Cervic Effacement Cervic Station neg none 16 wks none negative none neg Type Weight in lbs Pre/Post Dialysis Refused 187.787466311450 BP Diastolic BP Location Tested BP Systolic BP Type 64 96 sitting Fetus Heart Rate Present A 141 Present Fetus Movement Comments Flowsheet Date 07/07/2017 Antonio Score Blood Edema Fundus Height Fundus Units Glucose Ketones Leukocytes Nitrite Labor Signs Protein Cervic Dilation Cervic Effacement Cervic Station trace none 21 cm none negative Other (see comments ) neg Type Weight in lbs Pre/Post Dialysis Refused 188.577131016426 BP Diastolic BP Location Tested BP Systolic BP Type 72 122 sitting Fetus Heart Rate Present A 153 Present Fetus Movement A Yes Comments constipated (secondary to IB S); 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; OB FU at next visit in 4 wks; also get TSH levels at next visit (patient is hypothyroid) Flowsheet Date 08/03/2017 Antonio Score Blood Edema Fundus Height Fundus Units Glucose Ketones Leukocytes Nitrite Labor Signs Protein Cervic Dilation Cervic Effacement Cervic Station neg none 16 cm none negative none trace Type Weight in lbs Pre/Post Dialysis Refused 191.925826627040 BP Diastolic BP Location Tested BP Systolic BP Type 58 112 sitting Fetus Heart Rate Present A 148 Present Fetus Movement A Yes Comments transverse measurement 28 cm , gtt, US monthly, Flowsheet Date 09/15/2017 Antonio Score Blood Edema Fundus Height Fundus Units Glucose Ketones Leukocytes Nitrite Labor Signs Protein Cervic Dilation Cervic Effacement Cervic Station neg none 30 cm none negative none neg Type Weight in lbs Pre/Post Dialysis Refused 202.177584130331 BP Diastolic BP Location Tested BP Systolic BP Type 60 114 sitting Fetus Heart Rate Present A 144 Present Fetus Movement A Yes Comments us monthly Flowsheet Date 10/20/2017 Antonio Score Blood Edema Fundus Height Fundus Units Glucose Ketones Leukocytes Nitrite Labor Signs Protein Cervic Dilation Cervic Effacement Cervic Station trace 36 cm 0cm 70% -1 Type Weight in lbs Pre/Post Dialysis Refused 214.449999495720 BP Diastolic BP Location Tested BP Systolic BP Type 72 128 sitting Fetus Heart Rate Present A 142 Present Fetus Movement A Yes Comments Fell today in shower, sent f or BPP & NST. BPP normal. Sky on NST today q6-8min, given IVF. Sent PIH labs and given 24hr urine today. Monthly US given. Contacting [facility] for delivery plan. RTC 1 wk. Flowsheet Date 10/27/2017 Antonio Score Blood Edema Fundus Height Fundus Units Glucose Ketones Leukocytes Nitrite Labor Signs Protein Cervic Dilation Cervic Effacement Cervic Station neg trace 36 cm none negative none trace 0cm 70% -1 Type Weight in lbs Pre/Post Dialysis Refused 214.286201253745 BP Diastolic BP Location Tested BP Systolic BP Type 78 118 Fetus Heart Rate Present A 149 Present Fetus Movement A Yes Comments Flowsheet Date 11/03/2017 Antonio Score Blood Edema Fundus Height Fundus Units Glucose Ketones Leukocytes Nitrite Labor Signs Protein Cervic Dilation Cervic Effacement Cervic Station neg trace 37 cm none negative none neg 0cm 70% Type Weight in lbs Pre/Post Dialysis Refused 216.470239006068 BP Diastolic BP Location Tested BP Systolic BP Type 60 118 sitting Fetus Heart Rate Present A 125 Present Fetus Movement A Yes Comments C/o bilat LE edema Flowsheet Date 11/10/2017 Antonio Score Blood Edema Fundus Height Fundus Units Glucose Ketones Leukocytes Nitrite Labor Signs Protein Cervic Dilation Cervic Effacement Cervic Station none none 0cm 0% -3 Type Weight in lbs Pre/Post Dialysis Refused 217.531905706657 BP Diastolic BP Location Tested BP Systolic BP Type 60 120 sitting Fetus Heart Rate Present A 135 Present Fetus Movement A Yes Comments Flowsheet Date 12/05/2017 Antonio Score Blood Edema Fundus Height Fundus Units Glucose Ketones Leukocytes Nitrite Labor Signs Protein Cervic Dilation Cervic Effacement Cervic Station Type Weight in lbs Pre/Post Dialysis Refused 196.023136761124 BP Diastolic BP Location Tested BP Systolic BP Type 62 R arm 100 sitting Fetus Heart Rate Present Fetus Movement Comments Flowsheet Date 01/16/2018 Antonio Score Blood Edema Fundus Height Fundus Units Glucose Ketones Leukocytes Nitrite Labor Signs Protein Cervic Dilation Cervic Effacement Cervic Station Type Weight in lbs Pre/Post Dialysis Refused 196.178897528897 BP Diastolic BP Location Tested BP Systolic BP Type Fetus Heart Rate Present Fetus Movement Comments Menstrual History Last Menstrual Date Menses Monthly On Bcp Conception Prior Menses Frequency Hcg Plus Date Menarche Onset Age 1002/14/2017 Genetic Screening And Infection History Question Response Note Patient's Age Will Be 35 Yea rs Or Older At Estimated Date of Delivery false Thalassemia (Vietnamese, Malawian, Mediterranean, Or Background): MCV < 80 false Neural Tube Defect (Meningom yelocele, Spina Bifida, Or Anencephaly) false Congenital Heart Defect true pt had V SD, repaired in 1990 Down Syndrome false Robert-Sachs (eg, Caodaism, Cajun, American-Chilean) f alse Avelina Disease false Sickle Cell Disease Or Trait () false Hemophilia Or Other Blood Disorders false Muscular Dystrophy false Cystic Fibrosis false Olaf's Chorea false Mental Retardation/Autism false If Yes, Was Person Tested For Fragile X? false Other Inherited Genetic Or Chromosomal Disorder false Maternal Metabolic Disorder (eg, Type 1 Diabetes, PKU) false Patient Or Baby's Father Had A Child With Defects Not Listed Above false Recurrent Loss, Or A Stillbirth false RPL Medications (including Suppl ements, Vitamins, Herbs, OTC Drugs), Illicit/Recreational Drugs, Alcohol true SMOKER If Yes, Agent(s) And Strength/Dosage false Any Other Genetic History false Live With Someone With TB Or Exposed To TB false Patient Or Partner Has Histo ry Of Genital Herpes false Rash Or Viral Illness Since Last Menstrual Period false History Of STD, Gonorrhea, C hlamydia, HPV, Syphilis true hpv 2010 Other Infection History true GBS, CA Plans and Education First Trimester Discussed Date Discussion Item Discussion Note Discuss ed By 04/21/2017 Anticipated course o f care [email or web address] 04/21/2017 Alcohol [facility] 04/21/2017 Intimate partner violence rh [email or web address] 04/21/2017 Environmental/work hazards r [email or web address] 04/21/2017 Screening for aneuploidy rhu nley1 04/21/2017 Nutrition counseling ; special diet; dietary precautions (mercury, listeriosis) [facility] 04/21/2017 Childbirth classes/h ospital facilities given handout of classes offered at [facility] 04/21/2017 HIV and other routin e tests at initial ob visit [email or web address] 04/21/2017 Risk factors identif ied by history [email or web address] 04/21/2017 Weight gain counseling rhunl ey1 04/21/2017 Exercise [facility] 04/21/2017 Teratogens [email or web address] 04/21/2017 Use of any medicatio ns (including supplements, vitamins, herbs, or OTC drugs) [facility] 04/21/2017 10/20/17 bottle feed, cb-rma [facility] 04/21/2017 Sexual activity [facility] 04/21/2017 Tobacco/smoking cess ation counseling (ask, advise, assess, assist, and arrange) [place] [address] 04/21/2017 Illicit/recreational drugs [place] [id number] 04/21/2017 Dental care given dental con sent at initial ob visit [place] [address] 04/21/2017 Travel [place] [address] 04/21/2017 Seat belt use [place] [address] 04/21/2017 Indications for ultrasonography monthly [place] [address] 04/21/2017 Avoidance of saunas or hot tubs [place] [address] 04/21/2017 Toxoplasmosis precau tions (cats/raw meat) [place] [address] Second Trimester Discussed Date Discussion Item Discussion Note Discuss ed By 08/03/2017 Selecting a care provider 10/20/17 pt states possibly [facility] Jefe Hearn, bijal-naif [email or web address] 10/20/2017 family planning/tubal sterilization 10/20/17 PPBC, bcp,or patch, cb-rma cbradshaw Third Trimester Discussed Date Discussion Item Discussion Note Discuss ed By 08/03/2017 Anesthesia plans spinal elective c-sectio n [email or web address] 08/03/2017 Circumcision 08/03/17 baby boy, yes to ci dexter, cb-rmnaif [email or web address] 08/03/2017 10/20/17 bottle, cb-rma cbr adshaw5 Delivery Information Delivery Date Delivery Type Labor Anesthesia Weeks Gestation Incision Type Labor Labor Length Hrs Delivered By Post Complications Tubal Sterilization Discharge Date Comments 8 None [facility] 39.[address] false [address] Ellsworth None false 11/20/2017 Discharge Information Feeding Method Contraceptive Method Maternal HG B and HCT Levels Bottle patch
--- OUTSIDE RECORDS SUMMARY | 2024-04-12 03:56 | XMS_ITS | Continuity of Care Document ---
Author Organization [facility] [place] [address] [place] [address] [address] [place] [address] Phone Care Team Providers Care Building Materials Sales Attendant Name Role Phone Mcclelland OD, Jorge Alberto Unavailable Unavailable Advance Directives Directive Yes / No Effective Date File Name No Information Encounters Encounter Description Practice Location Reason(s) For Visit Diagnoses Date Provider Providers Copied on Encounter [facility], [address] [place] [address] [address], [place], [place], [id number], [place] tel:[phone] [facility] No Information Mar-2 9-200 0 Mcclelland OD Jorge Alberto. [address] , [address], [place], [address], [place]. tel:[phone] Family History Family Member Type Diagnosis Age At Onset No Information Payers Payer name Insurance type Covered libertarian ID Authoriza tion(s) Medicaid [facility] [id number] Social History Type Description Quantity Date Captured Comments Sex Female Smoking Status No Information Chief Complaint And Reason For Visit No Information Reason For Referral Reason For Referral No Information History Of Present Illness Encounter Date Complaint History Of Prese nt Illness No Information Functional Status Date Functional Assessmen t No Information Instructions Date Instruction Additional Infor mation No Information Assessments Type Assessment Date No Information Patient Care Teams Name Effective Dates (start - stop) Status Members No Information
--- OUTSIDE RECORDS SUMMARY | 2024-04-12 09:10 | XMS_ITS | Continuity of Care Document ---
Author Organization [facility] [place] Address [address] [place] [address] [address] [place] [address] Phone Care Team Providers Care Mixer Dry Food Products Name Role Phone Mcclelland OD, Jorge Alberto Unavailable Unavailable Advance Directives Directive Yes / No Effective Date File Name No Information Encounters Encounter Description Practice Location Reason(s) For Visit Diagnoses Date Provider Providers Copied on Encounter [facility], [address] [place] [address] [address], [place], [place], [id number], [place] tel:[phone] [facility] No Information Mar-2 9-200 0 Mcclelland OD Jorge Alberto. [address] , [address], [place], [address], [place]. tel:[phone] Family History Family Member Type Diagnosis Age At Onset No Information Payers Payer name Insurance type Covered libertarian ID Authoriza tion(s) Medicaid [facility] [id number] Social History Type Description Quantity Date Captured [...]
== END 2024-04-07 23:12 | disposition home or self-care (01) ==
PROVIDERS: Emergency Provider Student in an Organized Health Care Education/Training Program; PCP Nurse Practitioner Family
DX: R42 Dizziness and giddiness (principal); F41.8 Other specified anxiety disorders; E03.9 Hypothyroidism, unspecified; F17.210 Nicotine dependence, cigarettes, uncomplicated; Z20.822 Contact with and (suspected) exposure to COVID-19
CPT/HCPCS: 36415; 80048; 83735; 84703; 85025; 87637; 93005; 99283; A9270

== ENCOUNTER 2024-08-15 07:57 | Emergency (ER) | payer OTHER, SELFPAY ==
--- OUTSIDE RECORDS SUMMARY | 2024-08-15 08:03 | XMS_ITS | Continuity of Care Document ---
Author Organization [facility] [place] Address [address] [place] [address] [address] [place] [address] Phone Care Team Providers Care Foot Orthopedist Name Role Phone Mcclelland OD, Jorge Alberto Unavailable Unavailable Advance Directives Directive Yes / No Effective Date File Name No Information Encounters Encounter Description Practice Location Reason(s) For Visit Diagnoses Date Provider Providers Copied on Encounter [facility], [address] [place] [address] [address], [place], [place], [id number], [place] tel:[phone] [facility] No Information Mar-2 9-200 0 Mcclelland OD Jorge Alberto. [address] , [address], [place], [address], [place]. tel:[phone] Family History Family Member Type Diagnosis Age At Onset No Information Payers Payer name Insurance type Covered libertarian ID Authoriza tion(s) Medicaid [facility] [id number] Social History Type Description Quantity Date Captured [...]
[2024-08-15 08:04] VITALS: BP 129/78; PULSE 116; RESP 16; TEMP 37.3; O2SAT 97
--- OUTSIDE RECORDS SUMMARY | 2024-08-15 08:04 | XMS_ITS | Data Portability ---
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 Not available 04/29/2022 15:50:02 Plan of Treatment Reminders Order Date Submit Date Provider Last Modified By Organization Details Last Modified Time Details Appointments None recorded . Lab vitamin D, 25-hydro xy, total, serum 2024 025 [facility], [address] [place] [address], [address], 12:10:16 magnesiu m, serum or plasma 2024 025 [facility], [address] [place] [address], [address], 5 12:10:12 CMP, serum or plasma 2024 025 [facility], [address] [place] [address] 2, [place], [address], 5 12:10:07 CBC w/ auto diff 2024 025 [facility], [address] [facility] [address], [place], [address], 5 12:10:14 cobalami n and folate panel, serum 2024 025 [facility], [address], [place], [address], 5 12:10:11 lipid panel, serum 2024 025 [facility], [address], [place], [address], 5 12:10:06 TSH, ultra-se nsitive, serum 2024 025 [facility], [address], [place], [address], 5 12:10:09 respirat or[facility] 2024 025 [facility], [address], [place], [address], 5 12:10:10 urinalys is, dipstick 2022 023 In-Office Order, Internal Use Only DO Not Attach Compendium DO Not Attach Compendium, Do Not Delete/merge, [id number] 3 10:00:51 culture, urine 2022 023 [facility], [address], [place], [address], 3 03:08:07 lipid panel, serum 2022 023 [facility], [address], [place], [address], 3 03:08:03 HbA1c (hemoglo bin A1c), blood 2022 023 [facility], [address], [place], [address], 3 03:08:06 vitamin D, 25-hydro xy, total, serum 2022 023 [facility], [address], [place], [address], 3 03:08:08 TSH, ultra-se nsitive, serum 2022 023 [facility], [address], [place], [address], 3 03:08:05 CMP, serum or plasma 2022 023 [facility], [address], [place], [address], 3 03:08:04 CBC 2022 023 [facility], [address], [place], [address], 3 03:08:07 TSH, ultra-se nsitive, serum 2022 023 [facility], [address], [place], [address], 3 10:37:04 urinalys is, dipstick 2021 022 In-Office Order, Internal Use Only DO Not Attach Compendium DO Not Attach Compendium, Do Not Delete/merge, [id number] 2 15:07:38 culture, urine 2021 022 [facility], [address], [place], [address], 2 03:07:59 TSH, ultra-se nsitive, serum 2021 022 [facility], [address], [place], [address], 3 09:28:36 Referral None recorded . Procedures None recorded . Surgeries None recorded . Imaging None recorded . Medication Orders levothyr oxine 25 mcg tablet 2022 023 [facility] #05381, [address], [place], [place], [id number], 3 09:32:38 escitalo pram 10 mg tablet 2022 023 [facility] #98017, [address], [place], [place], [id number], 3 09:32:11 bupropio n HCl SR 150 mg tablet,1 2 hr sustaine d-releas e 2022 023 [facility] #66773, [address], [place], [place], [id number], 3 09:31:42 Zithroma x Z-Kishan 250 mg tablet [address] [facility] #23809, [address], [place], [place], [id number], 3 14:55:50 Macrobid 100 mg capsule [address] [facility] #65278, [address], [place], [place], [id number], 3 15:32:00 fluconaz ole 150 mg tablet 2021 022 [facility] #67008, [address], [place], [place], [id number], 3 09:32:18 levothyr oxine 25 mcg tablet 2021 022 [facility], [address], [place], [place], [id number], 3 09:32:27 escitalo pram 10 mg tablet 2021 [facility] #27185, [address], [place], [place], [id number], 3 09:32:11 bupropio n HCl SR 150 mg tablet,1 2 hr sustaine d-releas e 2021 [facility]8568, [address], [place], [place], [id number], 09:31:42 Patient TargetsNo targets recorded. Patient Instructions Encounter Date Encounter Id Patient Instructions Last Modified By Organization Details Last Modified Time 03/12/2022 [id number] A healthy lifestyle: care instructions Not available 03/12/2022 15:07:38 painful urinatio n (dysuria): care instructions Not available 03/12/2022 15:07:38 vaginal yeast infection: care instructions Not available 03/12/2022 15:07:38 hypothyroidism: care instructions Not available 03/12/2022 15:07:38 Continue to take medications as prescribed, do not abruptly stop them. Try walking or deep breathing exercises when feeling anxious. Stress management recommended-posit henrique imagery. Increase activity to 30 min a day most days. Call or return if problem persists or worsens. Not available 03/12/2022 15:07:09 f/u 4 months [facility]P barriers to care: none Not available 03/12/2022 15:13:08 04/29/2022 [id number] A healthy lifestyle: care instructions Not available 04/29/2022 15:50:27 coronavirus (covid-19): care instructions Not available 04/29/2022 15:50:09 upper respirator y infection (cold): care instructions Not available 04/29/2022 15:47:24 Take all antibiotics prescribed to you. If any fever or increase in pain, call/return to office. Not available 04/29/2022 15:46:19 keep follow up a s planned Not available 04/29/2022 15:46:53 07/06/2022 [id number] A healthy lifestyle: care instructions Not available 07/06/2022 15:28:33 hypothyroidism: care instructions Not available 07/06/2022 15:28:33 Continue to take medications as prescribed, do not abruptly stop them. Try walking or deep breathing exercises when feeling anxious. Stress management recommended-posit henrique imagery. Increase activity to 30 min a day most days. Call or return if problem persists or worsens. Not available 07/06/2022 15:23:39 f/u 4 months DWP barriers to care: none Not available 07/06/2022 15:23:40 04/05/2023 [id number] Learning About Benefits of Quitting Smoking Not available 04/05/2023 10:00:46 A healthy lifestyle: care instructions Not available 04/05/2023 10:00:47 hypothyroidism: care instructions Not available 04/05/2023 10:00:47 Increase intake of fresh fruits, and vegetables. Avoid packaged foods and fast foods. Follow a low salt diet, drink at least 8-10 8oz glasses of water a day, exercise most days of the week. Take all medications as prescribed. Keep appointments with PCP and all specialists. Not available 04/05/2023 09:54:18 f/u 6 months DWP barriers to care: none Not available 04/05/2023 10:00:54 07/13/2024 [id number] learning about vitamin D Not available 07/13/2024 10:52:28 headache: care instructions Not available 07/13/2024 10:52:28 hypothyroidism: care instructions Not available 07/13/2024 10:52:28 Increase water intake to at least 8-10 8 oz glasses a day and decrease caffeine intake. Keep headache log/diary to track possible triggers and anything that brings relief. Not available 07/22/2024 21:59:11 dwp labs needed, plan pending results Not available 07/22/2024 21:59:15 Reason for Referral None Reported. Results Created Date Observation Date Name Description Value Unit Range Abnormal Flag Note LastModifiedBy Organization Detail LastModifiedTime 03/12/2003/15/2022 URINE CULTU RE,CO MPREH ENSIV E urine culture,comp rehensive Final report Not Available [facility] ([facility]) [address] [facility], [place], [address], 03/16/2022 03:07:59 03/12/20 22 03/15/2022 URINE CULTU RE,CO MPREH ENSIV E result 1 Commen t Mixed uroge nital ashley 10,00 0-25, 000 colon y formi ng units per mL Not Available [facility] ([facility]) [address] [facility], [place], [address], 03/16/2022 03:07:59 03/12/20 22 03/12/2022 urina lysis , dipst ick Leukocytes Trace Not Available In-Offi ce Order Internal Use Only DO Not Attach Compendium DO Not Attach Compendium, Do Not Delete/merge, [id number] 03/12/2022 15:00:40 03/12/20 22 03/12/2022 urina lysis , dipst ick Nitrite negati ve Not Available In-Office Order Internal Use Only DO Not Attach Compendium DO Not Attach Compendium, Do Not Delete/merge, [id number] 03/12/2022 15:00:40 03/12/20 22 03/12/2022 urina lysis , dipst ick Urobilinogen .2 Not Available In-Of fice Order Internal Use Only DO Not Attach Compendium DO Not Attach Compendium, Do Not Delete/merge, [id number] 03/12/2022 15:00:40 03/12/20 22 03/12/2022 urina lysis , dipst ick Protein Negati ve Not Available In-Office Order Internal Use Only DO Not Attach Compendium DO Not Attach Compendium, Do Not Delete/merge, [id number] 03/12/2022 15:00:40 03/12/20 22 03/12/2022 urina lysis [...] 03/12/2022 urina lysis , dipst ick Specific [employer] 1.015 Not Available In-Off ice Order Internal [...] DO Not Attach Compendium, Do Not Delete/merge, [id number] 03/12/2022 15:00:40 09/24/19 23 09/24/2022 TSH RFX ON ABNOR MAL TO FREE T4 TSH 2.540 uIU/m L 0.450- 4.500 Not Available [facility] ([facility]) [address] [place], [address], 09/24/2022 10:37:04 04/05/20 23 04/06/2023 LIPID PANEL cholesterol, total 137 mg/dL 100-19 9 Not Available [facility] ([facility]) [address] [place], [address], 04/08/2023 03:08:03 04/05/20 23 04/06/2023 LIPID PANEL triglyceride s 73 mg/dL 0-149 Not Available [facility]) [address] [place], [address], 04/08/2023 03:08:03 04/05/20 23 04/06/2023 LIPID PANEL HDL cholesterol 40 mg/dL >39 Not Available [facility]) [address] [place], [address], 04/08/2023 03:08:03 04/05/20 23 04/06/2023 LIPID PANEL VLDL cholesterol herminio 15 mg/dL 5-40 Not Available [facility] ([facility]) [address] [place], [address], 04/08/2023 03:08:03 04/05/20 23 04/06/2023 LIPID PANEL LDL chol calc ([facility]) 82 mg/dL 0-99 Not Available [facility]) [address] [place], [address], 04/08/2023 03:08:03 04/05/20 23 04/06/2023 COMP. METAB OLIC PANEL (14) glucose 81 mg/dL 70-99 Not Available [facility] ([facility]) [address] [place], [address], 04/08/2023 03:08:04 04/05/20 23 04/06/2023 COMP. METAB OLIC PANEL (14) BUN 13 mg/dL 6-20 Not Available [facility] ([facility]) [address] [place], [address], 04/08/2023 03:08:04 04/05/20 23 04/06/2023 COMP. METAB OLIC PANEL (14) creatinine 0.61 mg/dL 0.57-1 .00 Not Available [facility] ([facility]) [address] [place], [address], 04/08/2023 03:08:04 04/05/20 23 04/06/2023 COMP. METAB OLIC PANEL (14) eGFR 121 mL/mi n/1.7 3 >59 Not Available [facility] ([facility]) [address] [place], [address], 04/08/2023 03:08:04 04/05/20 23 04/06/2023 COMP. METAB OLIC PANEL (14) BUN/creatini ne ratio 21 9-23 Not Available [facility] ([facility]) [address] [place], [address], 04/08/2023 03:08:04 04/05/20 23 04/06/2023 COMP. METAB OLIC PANEL (14) sodium 139 mmol/ L 134-14 4 Not Available [facility] ([facility]) [address] [place], [address], 04/08/2023 03:08:04 04/05/20 23 04/06/2023 COMP. METAB OLIC PANEL (14) potassium 4.2 mmol/ L 3.5-5. 2 Not Available [facility] ([facility]) [address] [place], [address], 04/08/2023 03:08:04 04/05/20 23 04/06/2023 COMP. METAB OLIC PANEL (14) chloride 104 mmol/ L 96-106 Not Available [facility] ([facility]) [address] [place], [address], 04/08/2023 03:08:04 04/05/20 23 04/06/2023 COMP. METAB OLIC PANEL (14) carbon dioxide, total 20 mmol/ L 20-29 Not Available [facility] ([facility]) [address] [place], [address], 04/08/2023 03:08:04 04/05/20 23 04/06/2023 COMP. METAB OLIC PANEL (14) calcium 9.4 mg/dL 8.7-10 .2 Not Available [facility] ([facility]) [address] [place], [address], 04/08/2023 03:08:04 04/05/20 23 04/06/2023 COMP. METAB OLIC PANEL (14) protein, total 7.0 g/dL 6.0-8. 5 Not Available [facility] ([facility]) [address] [place], [address], 04/08/2023 03:08:04 04/05/20 23 04/06/2023 COMP. METAB OLIC PANEL (14) albumin 4.6 g/dL 3.9-4. 9 Not Available [facility] ([facility]) [address] [place], [address], 04/08/2023 03:08:04 04/05/20 23 04/06/2023 COMP. METAB OLIC PANEL (14) globulin, total 2.4 g/dL 1.5-4. 5 Not Available [facility] ([facility]) [address] [place], [address], 04/08/2023 03:08:04 04/05/20 23 04/06/2023 COMP. METAB OLIC PANEL (14) A/G ratio 1.9 1.2-2. 2 Not Available [facility] ([facility]) [address] [facility] [place], [address], 04/08/2023 03:08:04 04/05/20 23 04/06/2023 COMP. METAB OLIC PANEL (14) bilirubin, total 0.3 mg/dL 0.0-1. 2 Not Available [facility] ([facility]) [address] [facility] [place], [address], 04/08/2023 03:08:04 04/05/20 23 04/06/2023 COMP. METAB OLIC PANEL (14) alkaline phosphatase 106 IU/L 44-121 Not Available [facility]) [address] [place], [address], 04/08/2023 03:08:04 04/05/20 23 04/06/2023 COMP. METAB OLIC PANEL (14) AST (SGOT) 20 IU/L 0-40 Not Available [facility] ([facility]) [address] [place], [address], 04/08/2023 03:08:04 04/05/20 23 04/06/2023 COMP. METAB OLIC PANEL (14) ALT (SGPT) 21 IU/L 0-32 Not Available [facility] ([facility]) [address] [place], [address], 04/08/2023 03:08:04 04/05/20 23 04/06/2023 TSH RFX ON ABNOR MAL TO FREE T4 TSH 4.500 uIU/m L 0.450- 4.500 Not Available [facility] ([facility]) [address] [place], [address], 04/08/2023 03:08:05 04/05/2004/06/2023 HEMOG LOBIN A1C hemoglobin A1C 5.3 % 4.8-5. 6 Predi abete s: 5.7 - 6.4 Diabe tarah: >6.4 Glyce jeremi contr ol for adult s with diabe tarah: <7.0 Not Available [facility] ([facility]) [address] [facility], [place], [address], 04/08/2023 03:08:06 04/05/2004/06/2023 CBC, NO DIFFE RENTI AL/PL ATELE T WBC 7.5 x10e3 /uL 3.4-10 .8 Not Available [facility] ([facility]) [address] [facility], [place], [address], 04/08/2023 03:08:06 04/05/2004/06/2023 CBC, NO DIFFE RENTI AL/PL ATELE T RBC 4.25 x10e6 /uL 3.77-5 .28 Not Available [facility] ([facility]) [address] [facility], [place], [address], 04/08/2023 03:08:06 04/05/2004/06/2023 CBC, NO DIFFE RENTI AL/PL ATELE T hemoglobin 13.2 g/dL 11.1-1 5.9 Not Available [facility] ([facility]) [address] [facility], [place], [address], 04/08/2023 03:08:06 04/05/2004/06/2023 CBC, NO DIFFE RENTI AL/PL ATELE T hematocrit 38.3 % 34.0-4 6.6 Not Available [facility] ([facility]) [address] [place], [address], 04/08/2023 03:08:06 04/05/2004/06/2023 CBC, NO DIFFE RENTI AL/PL ATELE T MCV 90 fL 79-97 Not Available [facility] ([facility]) [address] [facility], [place], [address], 04/08/2023 03:08:06 04/05/2004/06/2023 CBC, NO DIFFE RENTI AL/PL ATELE T MCH 31.1 pg 26.6-3 3.0 Not Available [facility] ([facility]) [address] [facility], [place], [address], 04/08/2023 03:08:06 04/05/2004/06/2023 CBC, NO DIFFE RENTI AL/PL ATELE T MCHC 34.5 g/dL 31.5-3 5.7 Not Available [facility] ([facility]) [address] [facility], [place], [address], 04/08/2023 03:08:06 04/05/2004/06/2023 CBC, NO DIFFE RENTI AL/PL ATELE T RDW 11.8 % 11.7-1 5.4 Not Available [facility] ([facility]) [address] [place], [address], 04/08/2023 03:08:06 04/05/20 23 04/07/2023 URINE CULTU RE,CO MPREH ENSIV E urine culture,comp rehensive Final report Not Available [facility] ([facility]) [address] [place], [address], 04/08/2023 03:08:07 04/05/2004/07/2023 URINE CULTU RE,CO MPREH ENSIV E result 1 Commen t Mixed uroge nital ashley 3,000 Colon ies/m L Not Available [facility] ([facility]) [address] [place], [address], 04/08/2023 03:08:07 04/05/20 23 04/06/2023 VITAM IN [...] Socie ty went on to [facility] defin e vitam in D insuf ficie ncy as a level betwe en 21 and 29 ng/mL (2). 1. IOM (Inst itute of Medic ine). 2010. Dieta ry refer ence intak es for calci um and D. Philip neal [place]: [facility] . 2. Tory fry [place], Cathy murrieta [place], Charlie off-F wanda i STEINER, et al. Evalu ation , treat ment, and preve ntion of vitam in D defic iency : an Endoc rine Socie ty clini herminio pract ice guide line. JCEM. 2010; 96(7) :1911 -30. Not Available [facility] ([facility]) [address] [facility], [place], [address], 04/08/2023 03:08:08 04/05/2004/05/2023 urina lysis , dipst ick Leukocytes Negati ve Not Available In-Office Order Internal Use Only DO Not Attach Compendium DO Not Attach Compendium, Do Not Delete/merge, [id number] 04/05/2023 09:44:52 04/05/2004/05/2023 urina lysis , dipst ick Nitrite negati ve Not Available In-Office Order Internal Use Only DO Not Attach Compendium DO Not Attach Compendium, Do Not Delete/merge, [id number] 04/05/2023 09:44:52 04/05/20 23 04/05/2023 urina lysis , dipst ick Urobilinogen .2 Not Available In-Of fice Order Internal Use Only DO Not Attach Compendium DO Not Attach Compendium, Do Not Delete/merge, [id number] 04/05/2023 09:44:52 04/05/20 23 04/05/2023 urina lysis [...] 04/05/2023 urina lysis , dipst ick Specific [employer] 1.030 Not Available In-Off ice Order Internal [...] DO Not Attach Compendium, Do Not Delete/merge, [id number] 04/05/2023 09:44:52 04/05/20 23 04/05/2023 urina lysis , dipst ick Color Dark Yellow Not Available In-Office Order Internal Use Only DO Not Attach Compendium DO Not Attach Compendium, Do Not Delete/merge, [id number] 04/05/2023 09:44:52 07/14/19 25 07/14/2024 LIPID PANEL cholesterol, total 151 mg/dL 100-19 9 Not Available [facility] ([facility]) [address] [place], [address], 07/23/2024 12:10:06 07/14/19 25 07/14/2024 LIPID PANEL triglyceride s 63 mg/dL 0-149 Not Available [facility] ([facility]) [address] [place], [address], 07/23/2024 12:10:06 07/14/19 25 07/14/2024 LIPID PANEL HDL cholesterol 47 mg/dL >39 Not Available [facility]) [address] [place], [address], 07/23/2024 12:10:06 07/14/19 25 07/14/2024 LIPID PANEL VLDL cholesterol herminio 13 mg/dL 5-40 Not Available [facility] ([facility]) [address] [place], [address], 07/23/2024 12:10:06 07/14/19 25 07/14/2024 LIPID PANEL LDL chol calc ([facility]) 91 mg/dL 0-99 Not Available [facility]) [address] [place], [address], 07/23/2024 12:10:06 07/14/19 25 07/14/2024 COMP. METAB OLIC PANEL (14) glucose 100 mg/dL 70-99 above high normal Not Available [facility] ([facility]) [address] [place], [address], 07/23/2024 12:10:07 07/14/19 25 07/14/2024 COMP. METAB OLIC PANEL (14) BUN 11 mg/dL 6-20 Not Available [facility] ([facility]) [address] [facility], [place], [address], 07/23/2024 12:10:07 07/14/19 25 07/14/2024 COMP. METAB OLIC PANEL (14) creatinine 0.69 mg/dL 0.57-1 .00 Not Available [facility] ([facility]) [address] [facility], [place], [address], 07/23/2024 12:10:07 07/14/19 25 07/14/2024 COMP. METAB OLIC PANEL (14) eGFR 116 mL/mi n/1.7 3 >59 Not Available [facility] ([facility]) [address] [facility], [place], [address], 07/23/2024 12:10:07 07/14/19 25 07/14/2024 COMP. METAB OLIC PANEL (14) BUN/creatini ne ratio 16 9-23 Not Available [facility] ([facility]) [address] [place], [address], 07/23/2024 12:10:07 07/14/19 25 07/14/2024 COMP. METAB OLIC PANEL (14) sodium 138 mmol/ L 134-14 4 Not Available [facility] ([facility]) [address] [place], [address], 07/23/2024 12:10:07 07/14/19 25 07/14/2024 COMP. METAB OLIC PANEL (14) potassium 4.7 mmol/ L 3.5-5. 2 Not Available [facility] ([facility]) [address] [place], [address], 07/23/2024 12:10:07 07/14/19 25 07/14/2024 COMP. METAB OLIC PANEL (14) chloride 103 mmol/ L 96-106 Not Available [facility] ([facility]) [address] [place], [address], 07/23/2024 12:10:07 07/14/19 25 07/14/2024 COMP. METAB OLIC PANEL (14) carbon dioxide, total 24 mmol/ L 20-29 Not Available [facility] ([facility] [address] [facility] [place], [address], 07/23/2024 12:10:07 07/14/19 25 07/14/2024 COMP. METAB OLIC PANEL (14) calcium 9.5 mg/dL 8.7-10 .2 Not Available [facility] ([facility]) [address] [place], [address], 07/23/2024 12:10:07 07/14/19 25 07/14/2024 COMP. METAB OLIC PANEL (14) protein, total 7.2 g/dL 6.0-8. 5 Not Available [facility] ([facility] [address] [facility] [place], [address], 07/23/2024 12:10:07 07/14/19 25 07/14/2024 COMP. METAB OLIC PANEL (14) albumin 4.7 g/dL 3.9-4. 9 Not Available [facility] ([facility]) [address] [facility] [place], [address], 07/23/2024 12:10:07 07/14/19 25 07/14/2024 COMP. METAB OLIC PANEL (14) globulin, total 2.5 g/dL 1.5-4. 5 Not Available [facility] ([facility]) [address] [facility] [place], [address], 07/23/2024 12:10:07 07/14/19 25 07/14/2024 COMP. METAB OLIC PANEL (14) bilirubin, total 0.3 mg/dL 0.0-1. 2 Not Available [facility] ([facility]) [address] [place], [address], 07/23/2024 12:10:07 07/14/19 25 07/14/2024 COMP. METAB OLIC PANEL (14) alkaline phosphatase 115 IU/L 44-121 Not Available [facility]) [address] [place], [address], 07/23/2024 12:10:07 07/14/19 25 07/14/2024 COMP. METAB OLIC PANEL (14) AST (SGOT) 18 IU/L 0-40 Not Available [facility] ([facility]) [address] [place], [address], 07/23/2024 12:10:07 07/14/19 25 07/14/2024 COMP. METAB OLIC PANEL (14) ALT (SGPT) 17 IU/L 0-32 Not Available [facility] ([facility]) [address] [place], [address], 07/23/2024 12:10:07 07/14/19 25 07/14/2024 TSH RFX ON ABNOR MAL TO FREE T4 TSH 4.570 uIU/m L 0.450- 4.500 above high normal Not Available [facility] ([facility]) [address] [place], [address], 07/23/2024 12:10:09 07/14/19 25 07/13/2024 ALLER GENS W/TOT AL IGE AREA 8 class description COMMEN T Level s of Speci fic IgE Class Descr iptio n of Class ----- ----- ----- ----- ----- -- ----- ----- ----- ----- ----- < 0.10 0 Negat henrique 0.10 - 0.31 0/I Equiv ocal/ Low 0.32 - 0.55 I Low 0.56 - 1.40 II Moder ate 1.41 - 3.90 III High 3.91 - 19.00 IV Very High 19.01 - 100.0 0 V Very High >100. 00 Very High Not Available [facility] ([facility]) [address] [facility], [place], [address], 07/23/2024 12:10:10 07/14/19 25 07/23/2024 ALLER GENS W/TOT AL IGE AREA 8 immunoglobul in E, total 10 IU/mL 6-495 Not Available [facility]) [address] [place], [address], 07/23/2024 12:10:10 07/14/19 25 07/23/2024 ALLER GENS W/TOT AL IGE AREA 8 [id number] D pteronyssinu s <0.10 kU/L class0 Not Available [facility] ([facility]) [address] [place], [address], 07/23/2024 12:10:10 07/14/19 25 07/23/2024 ALLER GENS W/TOT AL IGE AREA 8 [id number] D farinae <0.10 Not Available [facility] ([facility]) [address] [place], [address], 07/23/2024 12:10:10 07/14/19 25 07/23/2024 ALLER GENS W/TOT AL IGE AREA 8 [id number] CAT dander <0.10 Not Available [facility] ([facility]) [address] [place], [address], 07/23/2024 12:10:10 07/14/19 25 07/23/2024 ALLER GENS W/TOT AL IGE AREA 8 [id number]-[id number] dog dander <0.10 Not Available [facility] ([facility]) [address] [place], [address], 07/23/2024 12:10:10 07/14/19 25 07/23/2024 ALLER GENS W/TOT AL IGE AREA 8 [id number]-[id number] mouse urine <0.10 Not Available [facility] [facility] [address] [facility], [place], [address], 07/23/2024 12:10:10 07/14/19 25 07/23/2024 ALLER GENS W/TOT AL IGE AREA 8 y022-FsQ bermuda grass <0.10 Not Available [facility] ([facility]) [address] [facility], [place], [address], 07/23/2024 12:10:10 07/14/19 25 07/23/2024 ALLER GENS W/TOT AL IGE AREA 8 r036-GvG tray grass <0.10 Not Available [facility] ([facility]) [address] [place], [address], 07/23/2024 12:10:10 07/14/19 25 07/23/2024 ALLER GENS W/TOT AL IGE AREA 8 D868-YkC cockroach, nepali <0.10 Not Available [facility] ([facility]) [address] [place], [address], 07/23/2024 12:10:10 07/14/19 25 07/23/2024 ALLER GENS W/TOT AL IGE AREA 8 K426-FfY penicillium chrysogen <0.10 Not Available [facility] ([facility]) [address] [place], [address], 07/23/2024 12:10:10 07/14/19 25 07/23/2024 ALLER GENS W/TOT AL IGE AREA 8 Y540-ThE cladosporium herbarum <0.10 Not Available [facility] ([facility]) [address] [place], [address], 07/23/2024 12:10:10 07/14/19 25 07/23/2024 ALLER GENS W/TOT AL IGE AREA 8 C146-GmM aspergillus fumigatus <0.10 Not Available [facility] ([facility]) [address] [facility], [place], [address], 07/23/2024 12:10:10 07/14/19 25 07/23/2024 ALLER GENS W/TOT AL IGE AREA 8 H923-IoJ alternaria alternata <0.10 Not Available [facility] ([facility]) [address] [facility], [place], [address], 07/23/2024 12:10:10 07/14/19 25 07/23/2024 ALLER GENS W/TOT AL IGE AREA 8 P705-EtS maple/box elder <0.10 Not Available [facility] ([facility]) [address] [facility], [place], [address], 07/23/2024 12:10:10 07/14/19 25 07/23/2024 ALLER GENS W/TOT AL IGE AREA 8 Z432-HmO cedar, mountain <0.10 Not Available [facility] ([facility]) [address] [facility], [place], [address], 07/23/2024 12:10:10 07/14/19 25 07/23/2024 ALLER GENS W/TOT AL IGE AREA 8 J287-LfE oak, white <0.10 Not Available [facility] ([facility]) [address] [place], [address], 07/23/2024 12:10:10 07/14/19 25 07/23/2024 ALLER GENS W/TOT AL IGE AREA 8 V136-SwZ elm, north korean <0.10 Not Available [facility] ([facility]) [address] [facility], [place], [address], 07/23/2024 12:10:10 07/14/19 25 07/23/2024 ALLER GENS W/TOT AL IGE AREA 8 Z101-ZuH walnut <0.10 Not Available [facility] ([facility]) [address] [facility], [place], [address], 07/23/2024 12:10:10 07/14/19 25 07/23/2024 ALLER GENS W/TOT AL IGE AREA 8 R578-BnC maple leaf sycamore <0.10 Not Available [facility] ([facility]) [address] [facility], [place], [address], 07/23/2024 12:10:10 07/14/19 25 07/23/2024 ALLER GENS W/TOT AL IGE AREA 8 E074-AdG cottonwood <0.10 Not Available [facility] ([facility]) [address] [facility], [place], [address], 07/23/2024 12:10:10 07/14/19 25 07/23/2024 ALLER GENS W/TOT AL IGE AREA 8 U666-ZtH mike, white <0.10 Not Available [facility] ([facility]) [address] [facility], [place], [address], 07/23/2024 12:10:10 07/14/19 25 07/23/2024 ALLER GENS W/TOT AL IGE AREA 8 S766-EiQ pecan, hickory <0.10 Not Available [facility] ([facility]) [address] [facility], [place], [address], 07/23/2024 12:10:10 07/14/19 25 07/23/2024 ALLER GENS W/TOT AL IGE AREA 8 X311-VoX white mulberry <0.10 Not Available [facility] ([facility]) [address] [facility], [place], [address], 07/23/2024 12:10:10 07/14/19 25 07/23/2024 ALLER GENS W/TOT AL IGE AREA 8 D346-KgC ragweed, short <0.10 Not Available [facility] ([facility]) [address], [place], [address], 07/23/2024 12:10:10 07/14/19 25 07/23/2024 ALLER GENS W/TOT AL IGE AREA 8 C986-IyE thistle, bermudian <0.10 Not Available [facility] ([facility]) [address] [facility], [place], [address], 07/23/2024 12:10:10 07/14/19 25 07/23/2024 ALLER GENS W/TOT AL IGE AREA 8 H468-ZgS pigweed, common <0.10 Not Available [facility] ([facility]) [address] [facility], [place], [address], 07/23/2024 12:10:10 07/14/19 25 07/23/2024 ALLER GENS W/TOT AL IGE AREA 8 M607-BgO rough marshelder <0.10 Not Available [facility] ([facility]) [address] [facility], [place], [address], 07/23/2024 12:10:10 07/14/19 25 07/14/2024 VITAM IN B12 AND FOLAT E vitamin B12 376 pg/mL 232-12 45 Not Available [facility] ([facility]) [address] [facility], [place], [address], 07/23/2024 12:10:11 07/14/19 25 07/14/2024 VITAM IN B12 AND FOLAT E folate (folic acid), serum 11.2 NG/mL >3.0 A serum folat e marilin ntrat ion of less than 3.1 ng/mL is consi dered to repre sent clini herminio defic iency . Not Available [facility] ([facility]) [address] [facility], [place], [address], 07/23/2024 12:10:11 07/14/19 25 07/14/2024 MAGNE SIUM magnesium 2.2 mg/dL 1.6-2. 3 Not Available [facility] ([facility]) [address] [place], [address], 07/23/2024 12:10:12 07/14/19 25 07/14/2024 T4F T4,free (direct) 1.00 NG/dL 0.82-1 .77 Not Available [facility] ([facility]) [address] [facility], [place], [address], 07/23/2024 12:10:14 07/14/19 25 07/14/2024 CBC WITH DIFFE RENTI AL/PL ATELE T WBC 7.6 x10e3 /uL 3.4-10 .8 Not Available [facility] ([facility]) [address] [facility], [place], [address], 07/23/2024 12:10:14 07/14/19 25 07/14/2024 CBC WITH DIFFE RENTI AL/PL ATELE T RBC 4.48 x10e6 /uL 3.77-5 .28 Not Available [facility] ([facility]) [address] [place], [address], 07/23/2024 12:10:14 07/14/19 25 07/14/2024 CBC WITH DIFFE RENTI AL/PL ATELE T hemoglobin 13.7 g/dL 11.1-1 5.9 Not Available [facility] ([facility]) [address] [place], [address], 07/23/2024 12:10:14 07/14/19 25 07/14/2024 CBC WITH DIFFE RENTI AL/PL ATELE T hematocrit 41.4 % 34.0-4 6.6 Not Available [facility] ([facility]) [address] [place], [address], 07/23/2024 12:10:14 07/14/19 25 07/14/2024 CBC WITH DIFFE RENTI AL/PL ATELE T MCV 92 fL 79-97 Not Available [facility] ([facility]) [address] [facility], [place], [address], 07/23/2024 12:10:14 07/14/19 25 07/14/2024 CBC WITH DIFFE RENTI AL/PL ATELE T MCH 30.6 pg 26.6-3 3.0 Not Available [facility] ([facility]) [address] [facility], [place], [address], 07/23/2024 12:10:14 07/14/19 25 07/14/2024 CBC WITH DIFFE RENTI AL/PL ATELE T MCHC 33.1 g/dL 31.5-3 5.7 Not Available [facility] ([facility]) [address] [facility], [place], [address], 07/23/2024 12:10:14 07/14/19 25 07/14/2024 CBC WITH DIFFE RENTI AL/PL ATELE T RDW 11.6 % 11.7-1 5.4 below low normal Not Available [facility] ([facility]) [address] [facility], [place], [address], 07/23/2024 12:10:14 07/14/19 25 07/14/2024 CBC WITH DIFFE RENTI AL/PL ATELE T platelets 248 x10e3 /uL 150-45 0 Not Available [facility] ([facility]) [address] [facility], [place], [address], 07/23/2024 12:10:14 07/14/19 25 07/14/2024 CBC WITH DIFFE RENTI AL/PL ATELE T neutrophils 69 % notest ab. Not Available [facility] ([facility]) [address] [facility], [place], [address], 07/23/2024 12:10:14 07/14/19 25 07/14/2024 CBC WITH DIFFE RENTI AL/PL ATELE T lymphs 22 % notest ab. Not Available [facility] ([facility]) [address] [facility], [place], [address], 07/23/2024 12:10:14 07/14/19 25 07/14/2024 CBC WITH DIFFE RENTI AL/PL ATELE T monocytes 8 % notest ab. Not Available [facility] ([facility]) [address] [facility], [place], [address], 07/23/2024 12:10:14 07/14/19 25 07/14/2024 CBC WITH DIFFE RENTI AL/PL ATELE T eos 1 % notest ab. Not Available [facility] ([facility]) [address] [facility], [place], [address], 07/23/2024 12:10:14 07/14/19 25 07/14/2024 CBC WITH DIFFE RENTI AL/PL ATELE T basos 0 % notest ab. Not Available [facility] ([facility]) [address] [facility], [place], [address], 07/23/2024 12:10:14 07/14/19 25 07/14/2024 CBC WITH DIFFE RENTI AL/PL ATELE T neutrophils (absolute) 5.2 x10e3 /uL 1.4-7. 0 Not Available [facility] ([facility]) [address] [facility], [place], [address], 07/23/2024 12:10:14 07/14/19 25 07/14/2024 CBC WITH DIFFE RENTI AL/PL ATELE T lymphs (absolute) 1.7 x10e3 /uL 0.7-3. 1 Not Available [facility] ([facility]) [address] [facility], [place], [address], 07/23/2024 12:10:14 07/14/19 25 07/14/2024 CBC WITH DIFFE RENTI AL/PL ATELE T monocytes(ab solute) 0.6 x10e3 /uL 0.1-0. 9 Not Available [facility] ([facility]) [address] [facility], [place], [address], 07/23/2024 12:10:14 07/14/19 25 07/14/2024 CBC WITH DIFFE RENTI AL/PL ATELE T eos (absolute) 0.0 x10e3 /uL 0.0-0. 4 Not Available [facility] ([facility]) [address] [place], [address], 07/23/2024 12:10:14 07/14/19 25 07/14/2024 CBC WITH DIFFE RENTI AL/PL ATELE T baso (absolute) 0.0 x10e3 /uL 0.0-0. 2 Not Available [facility] ([facility]) [address] [facility], [place], [address], 07/23/2024 12:10:14 07/14/19 25 07/14/2024 CBC WITH DIFFE RENTI AL/PL ATELE T immature granulocytes 0 % notest ab. Not Available [facility] ([facility]) [address] [facility], [place], [address], 07/23/2024 12:10:14 07/14/19 25 07/14/2024 CBC WITH DIFFE RENTI AL/PL ATELE T immature grans (abs) 0.0 x10e3 /uL 0.0-0. 1 Not Available [facility] ([facility]) [address] [place], [address], 07/23/2024 12:10:14 07/14/19 25 07/14/2024 VITAM IN D, 25-HY DROXY vitamin D, 25-hydroxy 12.0 NG/mL 30.0-1 00.0 below low normal Vitam in D defic iency has been defin ed by the Insti tute of Medic ine and an Endoc rine Socie ty pract ice guide line as a level of serum 25-OH vitam in D less than 20 ng/mL (1,2) . The Endoc rine Socie ty went [facility] defin e vitam in D insuf ficie ncy as a level betwe en 21 and 29 ng/mL (2). 1. IOM (Inst itute of Medic ine). 2009. Dieta ry refer ence intak es for calci um and D. Philip neal [place]: [facility] Press . 2. Tory k [place], Binkl ey [place], Bisch off-F errar i STEINER, et al. Evalu ation , treat ment, and preve ntion of vitam in D defic iency : an Endoc rine Socie ty clini herminio pract ice guide line. JCEM. 2010; 96(7) :1911 -30. Not Available [facility] ([facility]) [address] [facility], [place], [address], 07/23/2024 12:10:16 07/03/19 24 07/02/2023 , magda reilly No observ ation record ed. [facility] [address], [place], [address], 07/04/2023 10:32:44 Result Notes None recorded. Problems Name Problem SNOMED Code Status Onset Date Resolution Date Notes Provider Name and Address Organization Details Recorded Time Pregnanc y 70330964 Completed 201605/04/2017 Jorge Alberto [place] null, [place] - [facility] 8 10:57:47 Recurren t miscarri age 310383284 Completed AMA Fabian, [place] - [facility] 8 15:29:22 Candidia sis of vagina 73925148 Completed 2016 Saadia Hairston [place], [place] [facility] 8 15:29:22 Candidia sis of vagina 84038028 Completed 201607/13/2024 Carol Sheth APN, COFFEE HOST-C Attn: Tennille decker,[address] [facility], [place], [address], [place] - [facility] 5 10:42:46 Group B Streptoc occus carrier 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 03 Completed 2016 AMA [place], [place] [facility] 8 15:29:22 Group B Streptoc occus carrier 41607926981 03 Completed 201607/13/2024 Carol Sheth APN, FNP-C Attn: Accountin g,[address] [facility], [place], [address], [place] [facility] 5 10:43:26 Hypothyr oidism 04089608 Completed 2016 Saadia Hairston [place] [facility] 8 15:29:22 Hypothyr oidism 17446448 Active 2016 Saadia Hairston [place] [facility] 8 15:29:22 Recurren t miscarri age 243028970 Completed 07/13/2024 Carol Sheth APN, FNP-C Attn: Accountin g,[address] [facility], [place], [address], [place] [facility] 5 10:43:14 High risk pregnanc y 46354166 Completed 2017 Saadia Hairston [place] [facility] 8 15:29:22 High risk pregnanc y 03730659 Completed 201707/13/2024 Carol Sheth APN, FNP-C Attn: Accountin g,[address] [facility], [place], [address], [place] [facility] 5 10:42:52 Ventricu lar septal defect 17139125 Completed 2017 s/p surgery 1990 Saadia Hairston [place] [facility] 8 15:29:22 Ventricu lar septal defect 00053660 Completed 201707/13/2024 s/p surgery 1990 Carol Sheth APN, FNP-C Attn: Accountilir g,[address] [facility], [place], [address], [place] [facility] 5 10:43:56 Smoker 27785695 Completed 2017 AMA [place] [facility] 8 15:29:22 Smoker 82576965 Active 2017 Saadia Hairst[place] [facility] 8 15:29:22 Delivery by elective section 952897853 Completed 11/19/19 18 Saadia Hairst[place] [facility] 8 15:29:22 Deliveri es by [id number] Completed 201907/13/2024 Carol Sheth APN, COFFEE HOST-C Attn: Tennille g,[address] [facility], [place], [address], [facility] 5 10:42:42 Tobacco user 716264789 Active 2021 Carol Sheth APN, COFFEE HOST-C Attn: Sofíain g,[address] [facility], [place], [address], [facility] 2 14:36:48 Vitamin D deficien cy 74547175 Active 2021 Carol Sheth APN, COFFEE HOST-C Attn: Sofíain g,[address] [facility], [place], [address], [facility] 2 14:36:50 Posterio r rhinorrh ea 54850903 Active 2024 Carol Sheth APN, COFFEE HOST-C Attn: Accountin g,[address] [facility], [place], [address], [place] [facility] 5 10:50:08 Headache 46504936 Active 2024 Carol Sheth APN, COFFEE HOST-C Attn: Accountin g,[address] [facility], [place], [address] [facility] 5 10:50:09 Irritabl e bowel syndrome 41578551 Completed 05/03/2018 Jorge Alberto [place] [facility] 9 16:45:37 Bacteria l vaginosi s 018412241 Completed 07/13/2024 Carol Sheth APN, COFFEE HOST-C Attn: Accountin g,[address] [facility], [place], [address], [place] [facility] 5 10:43:29 Irritabl e bowel syndrome 22926312 Completed Kiana gar[place] [facility] 6 16:37:56 Antenata l care for woman with history of recurren t miscarri age Completed 10/27/2017 Jorge Alberto gar[place] [facility] 8 16:08:00 Antenata l care for woman with history of recurren t miscarri age Completed Kiana [place] [facility] 6 16:37:56 Vitamin D deficien cy 20694706 Completed 10/27/2017 Carol Sheth APN, MARY JO-Bay Attn: Accountin g,[address] [facility], [place], [address] [facility] 2 14:36:50 Vitamin D deficien cy 96505277 Completed Kiana [place] [facility] 6 16:37:56 Varicell a 75061592 Completed 07/13/2024 Carol Sheth APN, DALTON Attn: Accountin g,[address] [facility], [place], [address] [facility] 5 10:43:19 Varicell a 49249811 Completed [place] [facility] 6 16:37:57 Threaten ed miscarri age 76401247 Completed 10/27/2017 Jorge Alberto [place] [facility] 8 16:07:57 Threaten ed miscarri age 25473717 Completed K[place] [facility] 6 16:37:56 Constipa tion 85700125 Completed 10/27/2017 Jorge Alber[place] [facility] 8 16:08:15 Constipa tion 18678249 Completed [place] [facility] 6 16:37:56 Bacteria l vaginosi s 696982538 Completed Kiana gar, [place] - [facility] 6 16:37:56 Missed miscarri age 42554880 Completed 10/27/2017 Jorge Alberto gar, [place] - [facility] 8 16:08:10 Missed miscarri age 72238554 Completed Kiana gar, [place] - [facility] 6 16:37:56 Disorder of stomach 44412815 Completed 10/27/2017 Jorge Alberto gar, [place] [facility] 8 16:08:07 Disorder of stomach 68193264 Completed Kiana gar, [place] - [facility] 6 16:37:56 Dysmenor ashley 391447771 Completed 07/13/2024 Carol Sheth APN, COFFEE HOST-C Attn: Tennille decker,[address] [place], [address], [facility] - [facility] 5 10:43:42 Depressi ve disorder 20868971 Active Jorge Alberto gar, [place] - [facility] 6 12:08:34 Vaginiti s 13547296 Completed 07/13/2024 Carol Sheth APN, COFFEE HOST-C Attn: Tennille decker,[address] [place], [address], [facility] 5 10:43:32 Acute urinary tract infectio n 207243629 Completed 07/13/2024 Carol Sheth APN, COFFEE HOST-C Attn: Tennille decker,[address] [place], [address], [facility] - [facility] 5 10:42:35 Obesity 049409719 Active 2016 Jorge Alberto gar, [place] - [facility] 7 17:50:35 Problem Notes None recorded. Procedures Surgical History Date Name Laterality Status Provider Name and Address Organization Details Recorded Time 09/26/19 20 Date of Last Pap Smear completed Saadia Hairston [place] [facility] 09/17/2020 10:02:07 05/03/19 19 IUD Insertion completed Jorge Alberto Ellsworth [place] [facility] 05/03/2018 17:36:06 01/06/20 18 Cholecystectomy completed Saadia Hairston MA [facility] 01/16/2018 15:21:25 11/19/19 18 delivery completed Supriya Donaldson [place] [facility] 12/05/2017 13:48:43 04/25/19 10 Colposcopy completed Lori Montana MA [facility] 02/26/2015 15:03:17 04/25/19 08 Dilation and Curettage completed Lori Montana [place] [facility] 02/26/2015 15:03:17 04/25/18 91 Heart Surgery completed Jorge Alberto CooleySeng [place] - [facility] 11/18/2016 17:09:35 Imaging Results Imaging Date Name Status LastModified by Organiz ation Details LastModified Time 07/02/2023 US, pelvis completed [facility] [address], [place], [address], 07/04/2023 10:32:44 Procedure Notes None recorded. Medical [...] tablet twice a day by oral route. 07/13 completed Not Available Not Available Not Available clindamyc in 1 % topical gel [...] 1 capsule every week by oral route. 07/13 completed Not Available Not Available Not Available levofloxa sina 500 mg tablet 03/24 completed [...] active Not Available Not Available Not Avai bonilla Durbin s Butt Paste 40 % topical ointment [...] 2015 active Not Available Not Available Not Bucky crystal Paxlovid 300 mg (150 mg x 2)-100 [...] Updated DateTime 2 162.56 cm 35.2 kg/m2 31446.4 4 g 98 % 98 % 78 /min 16 /min 97.5 [degF] 116 mm[Hg] 84 mm[Hg] Ann Kirkland MA [facility] 2 14:49:09 Date Recorded Body height Provider Name an d Address Organization Details Last Updated DateTime 04/29/2022 162.56 cm Cat Peacock [facility] 04/29/2022 15:31:49 Date Recorded Body height Body mass index (BMI) Body weight Oxygen saturation Oxygen saturation in Arterial blood by Pulse oximetry Heart rate Respiratory rate Body temperature Systolic blood pressure Diastolic blood pressure Provider Name and Address Organization Details Last Updated DateTime 3 162.56 cm 36 kg/m2 38975.4 g 97 % 97 % 88 /min 16 /min 98 [degF] 114 mm[Hg] 72 mm[Hg] Cat Peacock [facility] 3 14:58:51 Date Recorded Body height Body mass index (BMI) Body weight Oxygen saturation Oxygen saturation in Arterial blood by Pulse oximetry Heart rate Respiratory rate Body temperature Systolic blood pressure Diastolic blood pressure Provider Name and Address Organization Details Last Updated DateTime 3 162.56 cm 35.5 kg/m2 55513.6 2 g 99 % 99 % 80 /min 16 /min 97.3 [degF] 110 mm[Hg] 74 mm[Hg] MEME Nunez [facility] 3 09:36:24 Date Recorded Body height Body mass index (BMI) Body weight Oxygen saturation Oxygen saturation in Arterial blood by Pulse oximetry Respiratory rate Body temperature Heart rate Systolic blood pressure Diastolic blood pressure Provider Name and Address Organization Details Last Updated DateTime 5 162.56 cm 37.8 kg/m2 79344.3 2 g 98 % 98 % 16 /min 97.8 [degF] 62 /min 110 mm[Hg] 74 mm[Hg] MEME Nunez [facility] 5 10:33:23 Social History Question Answer Notes LastModified by Organizat ion Details LastModified Time Tobacco Smoking Status Former Smoker quit 07/2022 MEME Nunez [facility] 04/05/2023 09:34:08 Do You Have An Advance Directive? No Information not available 02/26/2015 What Is Your Level Of Alcohol Consumption? None Information not available 07/13/2024 If You Are , What Was Your Level Of Alcohol Consumption Prior To ? None Information not available 01/06/2022 How Many Years Have You Consumed Alcohol? 0 [email or web address] Information not available 05/21/2015 Is Anesthesia Consult Planned? No Information not available 05/21/2015 Plan No Information not available 05/21/2015 Are You Blind Or Do You Have Difficulty Seeing? No [email or web address] Information not available 01/06/2022 Is Blood Transfusion [...] High Risk For COVID-19? 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 Yes Information not available 01/06/2022 Are You Deaf Or Do You Have Serious Difficulty Hearing? No [email or web address] Information not available 01/06/2022 What Type Of Diet Are You Following? REGULAR Information not available 02/26/2015 Which Illicit Or Recreational Drugs Have You Used? Marijuana Information not available 09/17/2020 Do You Or Have You Ever Used E-cigarettes Or Vape? Current User Of Electronic Cigarettes 5% [email or web address] Information not available 01/06/2022 Education 12 Information not available 02/26/2015 What Is The Highest Grade Or Level Of School You Have Completed Or The Highest Degree You Have Received? [id number] Information not available 09/17/2020 What Is Your Occupation? [facility] Information not available 07/13/2024 Have There Been Any Changes To Your Family Or Social Situation? No Information not available 05/21/2015 Frequent Air Travel No Information not available 05/21/2015 Are There Any Guns Present In Your Home? No [email or web address] Information not available 01/06/2022 Illicit Drugs Pre- Pt Denies [email or web address] Information not available 05/21/2015 How Many Years Have You Used Illicit Or Recreational Drugs? 0 [email or web address] Information not available 05/21/2015 Live Alone Or With Others? With Others Information not available 11/18/2016 Marital Status Single [email or web address] Informatio n not available 05/21/2015 What Was The Date Of Your Most Recent Tobacco Screening? 07/13/2024 Information not available 07/13/2024 How Many Children Do You Have? 1 [...] Much Tobacco Do You Smoke? 0.25 PPD [email or web address] Information not available 07/06/2022 Smoking Pre- Yes Information not available 05/21/2015 General Stress Level Low Information not available 02/26/2015 Do You Feel Stressed (tense, Restless, Nervous, Or Anxious, Or Unable To Sleep At Night)? [id number] Information not available 04/05/2023 Do You Use Any Illicit Or Recreational Drugs? Yes Marijuanna Rarely [email or web address] Information not available 01/06/2022 Do You Use Sunscreen Routinely? Yes Information not available 02/26/2015 Has Tobacco Cessation Counseling Been Provided? Yes Information not available 09/11/2018 On What Date Was Tobacco Cessation Counseling Provided? 07/13/2024 Information not available 07/13/2024 How Many Years Have You Smoked Tobacco? 13 04/29/22 [email or web address] Information not available 04/29/2022 Have You Used IV Drugs? No Information not available 09/17/2020 Do You Or Have You Ever Used Any Other Forms Of Tobacco Or Nicotine? Yes [email or web address] Information not available 01/06/2022 How Many Years Have You Used E-cigarettes Or Vape? 10 07/13/24 Information not available 07/13/2024 Sex: Unknown Functional Status Question Answer Note LastModified by Organization D etails LastModified Time Are you able to care for yourself? Yes [email or web address] Information n ot available 01/06/2022 What is your exercise level? None [email or web address] Information not available 03/12/2022 Mental Status None recorded. Family History Relationship Description Onset Age of this Age Resolved Age Notes LastModified by Organization Details LastModified Time Mother Rheumatoid arthritis Not available 05/04 10:34:48 Mother Irregular heart beat Not available 04/25 10:35:09 Mother Diabetes mellitus [email or web address] Not available 05/04 10:35:19 Mother Malignant tumor of vulva [email or web address] Not available 05/04 10:35:33 Mother Degenerative disorder [email or web address] Not available 05/04 10:36:03 Mother Non-alcoholi c fatty liver [email or web address] Not available 05/04 10:36:17 Mother Pulmonary embolism 53 [email or web address] Not available 01/06 14:10:55 Maternal Aunt Non-alcoholi c fatty liver [email or web address] Not available 05/04 10:36:39 Maternal Aunt Malignant tumor of breast [email or web address] Not available 05/04 10:37:14 Father Malignant neoplasm of bone [email or web address] Not available 11/10 16:57:20 Father Hypertensive disorder [email or web address] Not available 01/06 14:10:40 Medical History Condition Response Other N Atrial Fibrillation N High Blood Pressure N Breast Cancer N Blood Clots N COPD N Depression N Lung Disease N Breast Problem N Anesthesia Complications N Headaches/Migraines Y Anxiety Disorder N Muscle, Joint, or Bone Problems N Arthritis N Polyps N Infertility N Acid Reflux (GERD) N Cancer N Stroke N Endometriosis N High Cholesterol N Liver Disease N Headaches N Fibromyalgia N Kidney Disease N Heart Problems N Thyroid Problems Y Kidney or Bladder Problems N GI Problems N Acne N Eating Disorder N Skin Problems N Anemia Y Heart Attack ([place]) N Diabetes N Ovarian Cancer N Blood Transfusions N Seizures/Epilepsy N Abuse/Domestic Violence N Asthma N Allergies Y Hepatitis N Heart Disease Y Pre-Eclampsia N Hypertension N Heart Failure N Osteoporosis N Gynecological History Statement/Question Response Abnormal Pap [...] e and Address Organization Details Recorded Time Tdap 09/01/2017 completed Carol Sheth APN, FNP-C Attn: Accounting,[address] [place], [address], [place] - [facility] 07/13/2024 10:41:25 Influenza, split virus, trivalent, PF 02/02/2024 completed Carol Sheth, RISK MANAGEMENT SPECIALIST, COFFEE HOST-C Attn: Accounting[address] [facility], [place], [address], [facility] - [facility] 07/13/2024 10:41:25 Influenza, split virus, quadrivalent, PF 01/27/2023 completed Carol Sheth APN, COFFEE HOST-C Attn: Accounting[address] [facility], [place], [address], [facility] - [facility] 07/13/2024 10:41:25 HPV9 09/26/2019 completed AMA Fab[place], [place] - [facility] 09/26/2019 13:19:56 Past Encounters Encounter ID Performer Location Encounter Start Date Encounter Closed Date Diagnosis/Indication Diagnosis SNOMED-CT Code Diagnosis ICD10 Code Diagnosis Note [id number] Jorge Alberto [facility] (CAMPUS SECURITY DIRECTOR) [address] [place] [address] [id number] 0 02/26/2015 14:10:36 02/26/2015 15:55:52 Gynecologic examination 62826153 Z01.419 Irritable bowel syndrome 83545923 K58.9 [id number] Kiana Curran (CAMPUS SECURITY DIRECTOR) [address] [place] [address] [id number] 0 05/21/2015 13:58:16 05/21/2015 16:51:18 Routine care 395533884 Z34.81 Patient is taking a vitamin Irritable bowel syndrome 17636755 K58.9 care for woman with history of recurrent miscarriage 330294318 O26.21 [id number] Kiana Curran (CAMPUS SECURITY DIRECTOR) [address] [place] [address] 45908-457 0 06/05/2015 15:24:47 06/12/2015 11:55:00 Threatened miscarriage 73937479 O20.0 Constipation 20850565 K5 9.00 [id number] Kiana Curran (CAMPUS SECURITY DIRECTOR) [address] [place] [address] 63210-937 0 06/11/2015 14:04:59 06/11/2015 16:05:04 Bacterial vaginosis 544274612 N76.0 Missed miscarriage 39433 004 O02.1 care for woman with history of recurrent miscarriage 954952685 O26.21 [id number] Dakotah Curran (CAMPUS SECURITY DIRECTOR) [address] [place] [address] 50001-277 0 07/08/2015 11:15:58 07/08/2015 12:13:32 Postoperative visit 636707047 Z09 25 year old patient with history of multiple spontaneou s first trimester losses. S/P suction D&C. Normal post op examinaton . Discussed recommenda tion of work up prior to next attempt with patient and her . Referred to reproducti ve endocrinol derrick. Patient has selected her own referral center. Vaginitis 06653175 N76.0 [id number] Jorge Alberto Curran (CAMPUS SECURITY DIRECTOR) [address] [place] [address] 18074-819 0 11/18/2016 15:59:28 11/19/2016 16:26:45 History of recurrent miscarriage - not 545792710 N96 Reproducti ve care management 965970086 Z31.9 Polycystic ovaries 41747 008 E28.2 If tubes are patent consider metform +/- letrozole (Not CLOMID) Family lana nning surveillance 346323492 Z30.09 History of abnormal cervical Papanicolaou smear 457693720 Z87.42 Last pap was 2 years ago. Patient denied pap today secondary to menses. Patient agreed to make follow up gianna junior Obesity 887283538 E66.9 [id number] Jorge Alberto Curran (CAMPUS SECURITY DIRECTOR) [address] [place] [address] [id number] 0 03/24/2017 14:22:17 03/24/2017 16:45:35 Routine care 998284838 Z34.80 care for woman with history of recurrent miscarriage 189080665 N96 Varicella 80509737 B01.9 VARICELLA NON-IMMUNE Depressive disorder 3548 9007 F32.9 Obesity 546886706 E66.9 [id number] CHARITY Escamilla [facility] (CAMPUS SECURITY DIRECTOR) [address] [place] [address] 85139-010 0 04/21/2017 14:58:23 04/21/2017 17:06:34 Routine care 549716325 Z34.80 [id number] Jorge Alberto [facility]ran [facility] (CAMPUS SECURITY DIRECTOR) [address] [place] [address] [id number] 0 05/04/2017 10:14:40 05/04/2017 13:38:39 Routine care 822943790 Z34.[address] reptococcus carrier 7211642359 103 Z22.330 info given Hypothyroidism 05052282 E03.9 hypothyroi dism rx levothyrox ine 150mg daily am repeat tsh 4 weeks Depressive disorder 3548 9007 F32.9 buproprion Recurrent miscarriage 10 8096160 N96 baby asa High risk 4720 0007 O09.91 ssm Ventricula r septal defect 14933105 Q21.0 s/p surgery 1990 Smoker 34944598 F17.200 STOP SMOKING [id number] Jorge Alberto Curran (CAMPUS SECURITY DIRECTOR) [address] [place] [address] 19574-244 0 06/09/2017 15:50:44 06/13/2017 12:53:44 Routine care 196931828 Z34.80 High risk 4720 0007 O09.91 ssm Ventricula r septal defect 77242449 Q21.0 s/p surgery [address] reptococcus carrier 8640327239 103 Z22.330 info given Recurrent miscarriage 10 1123400 N96 baby asa Hypothyroidism 19982365 E03.9 hypothyroi dism rx levothyrox ine 150mg daily am repeat tsh 4 weeks Irritable bowel syndrome 60066792 K58.9 [id number] Jorge Alberto Curran (CAMPUS SECURITY DIRECTOR) [address] [place] [address] [id number] 0 07/07/2017 15:44:22 07/07/2017 17:33:49 Routine care 032338870 Z34.80 Continue to follow up with high school physical education teacher Chronic id iopathic constipation 06029797 K59.04 Hypothyroidism 99788559 E03.9 TSH to be done at next visit Anemia 032115704 D64.9 [id number] Jorge Alberto Curran (CAMPUS SECURITY DIRECTOR) [address] [place] [address] [id number] 0 08/03/2017 09:54:13 08/03/2017 12:04:29 Routine care 583998953 Z34.80 Continue to follow up with high school physical education teacher Risk of ex posure to communicable disease 990304164 Z20.9 Ventricula r septal defect 10331027 Q21.0 s/p surgery 1991 High risk 4720 0007 O09.91 ssm Hypothyroidism 09328536 E03.9 TSH to be done at next visit [id number] Jorge Alberto Curran (CAMPUS SECURITY DIRECTOR) [address] [place] [address] 65048-119 0 09/15/2017 15:49:54 09/20/2017 14:13:44 Routine care 513705127 Z34.80 Continue to follow up with high school physical education teacher High risk 4720 0007 O09.91 ssm, complete transfer of care Ventricula r septal defect 43619014 Q21.0 s/p surgery 1991 Recurrent miscarriage 10 5841935 N96 baby asa Group B [address] reptococcus carrier 3999236690 103 Z22.330 info given Hypothyroidism 64426326 E03.9 TSH to be done at next visit [id number] Jorge Alberto Curran (CAMPUS SECURITY DIRECTOR) [address] [place] [address] [id number] 0 10/20/2017 14:44:17 10/20/2017 15:47:29 Routine care 993597816 Z34.80 Continue to follow up with high school physical education teacher - induced hypertension 40769916 O13.9 Hypothyroidism 85784388 E03.9 TSH to be done at next visit High risk 4720 0007 O09.91 ssm, complete transfer of care Ventricula r septal defect 02928023 Q21.0 s/p surgery 1991 Smoker 17368861 F17.[address] reptococcus carrier 9138674411 103 Z22.330 info given Recurrent miscarriage 10 0180268 N96 baby asa Candidiasis of vagina 72 413990 B37.3 glabrata [id number] Jorge Alberto Curran (CAMPUS SECURITY DIRECTOR) [address] [place] [address] [id number] 0 10/27/2017 15:11:54 10/27/2017 16:15:06 Routine care 087341704 Z34.80 Continue to follow up with high school physical education teacher High risk 4720 0007 O09.91 ssm, complete transfer of care Recurrent miscarriage 10 3664203 N96 baby asa Hypothyroidism 72818523 E03.9 TSH to be done at next visit Depressive disorder 3548 9007 F32.9 buproprion Bacterial vaginosis 4197 17819 N76.0 Smoker 71935915 F17.200 STOP SMOKING Ventricula r septal defect 05405328 Q21.0 s/p surgery 0147 [id number] Jorge Alberto Curran (CAMPUS SECURITY DIRECTOR) [address] [place] [address] [id number] 0 11/03/2017 15:06:45 11/03/2017 16:49:40 Routine care 230811484 Z34.80 Continue to follow up with high school physical education teacher High risk 4720 0007 O09.91 ssm, complete transfer of care Recurrent miscarriage 10 3536015 N96 baby asa Hypothyroidism 23796654 E03.9 TSH to be done at next visit Depressive disorder 3548 9007 F32.9 buproprion Bacterial vaginosis 4197 68342 N76.0 Smoker 55158714 F17.200 STOP SMOKING Ventricula r septal defect 20016985 Q21.0 s/p surgery 1991 Eczema 61811506 L30.9 [id number] KYLE Magallanes (CAMPUS SECURITY DIRECTOR) [address] [place] [address] [id number] 0 11/10/2017 15:45:06 11/10/2017 17:24:11 Routine care 636960003 Z34.80 Continue to follow up with high school physical education teacher Ventricula r septal defect 15230891 Q21.0 s/p surgery 1991 High risk 4720 0007 O09.91 ssm, complete transfer of care Smoker 27427131 F17.[address] reptococcus carrier 9728237171 103 Z22.330 info given Recurrent miscarriage 10 3250454 N96 baby asa Hypothyroidism 66358408 E03.9 TSH to be done at next visit Depressive disorder 3548 9007 F32.9 buproprion Obesity 088263033 E66.9 Delivery b y elective section 445513460 Z37.9 [id number] Jorge Alberto Curran (CAMPUS SECURITY DIRECTOR) [address] [place] [address] 68380-993 0 12/05/2017 12:49:53 12/05/2017 14:18:49 state 52676287 Z39.2 incision check Urethritis 31636619 N34. 2 [id number] Jorge Alberto Curran (CAMPUS SECURITY DIRECTOR) [address] [place] [address] 64257-498 0 01/16/2018 14:52:24 01/16/2018 16:16:06 care 891232227 Z39.2 Exposure t o sexually transmissible disorder 065978130 Z20.2 Family lana nning surveillance 991250981 Z30.09 [id number] Jorge Alberto Curran (CAMPUS SECURITY DIRECTOR) [address] [place] [address] 23450-324 0 05/03/2018 16:12:56 05/06/2018 03:47:02 Family planning surveillance 139265853 Z30.09 Insertion of intrauterine contraceptive device 76634942 Z30.843 [id number] Jorge Alberto Curran (CAMPUS SECURITY DIRECTOR) [address] [place] [address] 12349-395 0 06/15/2018 15:29:58 06/15/2018 17:03:53 Gynecologic examination 09824479 Z01.419 Family lana nning surveillance 321775954 Z30.09 Surveillan ce of intrauterine device contraception done 7614707740 42813 Z30.40 [id number] Jorge Alberto Curran (CAMPUS SECURITY DIRECTOR) [address] [place] [address] 35077-814 0 09/26/2019 09:30:14 09/27/2019 06:37:05 Ventricular septal defect 36645475 Q21.0 s/p surgery 1991 Recurrent miscarriage 10 3435983 N96 baby asa Hypothyroidism 84620813 E03.[address] reptococcus carrier 4760449379 103 Z22.330 info given Depressive disorder 3548 9007 F32.9 buproprion Smoker 74918413 F17.200 STOP SMOKING Deliveries by 860946087 O82 Exposure t o sexually transmissible disorder 987150702 Z20.2 Gynecologi c examination 63924755 Z01.419 Z11.51 Positive s creening for depression on PHQ-9 (Patient Health Questionnaire 9) 3975737685 31474 Z13.89 Administra tion of viral vaccine 08269949 Z23 Bacterial vaginosis 4197 16386 N76.0 [id number] Jorge Alberto Curran (CAMPUS SECURITY DIRECTOR) [address] [place] [address] 79523-602 0 03/04/2020 11:58:13 03/13/2020 12:27:59 Surveillance of intrauterine device contraception done 6581463104 Z30.40 yoli Tampon ret ained in vagina 729184711 Z18.89 Exposure t o sexually transmissible disorder 018582209 Z20.2 come to office for testing of urine [facility] nning surveillance 920708174 Z30.09 Recurrent urinary tract infection 788003407 N39.0 [id number] Jorge Alberto Ellsworth Magdy (CAMPUS SECURITY DIRECTOR) [address] [place] [address] 09/17/2020 09:57:16 09/19/2020 14:57:04 Venereal disease screening 189433071 Z11.3 Last PAP nml, 2019. Bacterial vaginosis 4197 57309 N76.0 Candidiasis of vagina 72 647633 [address]37.[address] reptococcus carrier 7904109473 103 Z22.330 info given Surveillan ce of intrauterine device contraception done 6034531436 19104 Z30.40 yoli intact in uterus. [facility] nning surveillance 958749212 Z30.09 Has usual and customarie s. Deliveries by 618181378 O82 Ventricula r septal defect 05299572 Q21.0 s/p surgery 1990 Hypothyroidism 06588967 E03.9 Depressive disorder 3548 9007 F32.9 buproprion stopped by patient. 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 Recurrent urinary tract infection 466432849 N39.0 dark and odor frequently ; Hypothyroidism 04069659 E03.9 not currently on med, Obesity 091152188 E66.9 advised low fat, low cholestero l diet, regular exercise and weight reduction. Vitamin D deficiency 347 61646 E55.9 recheck lab Tobacco user 857986003 Z 72.0 Smoking cessation encouraged . 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 Hypothyroidism 62853418 E03.9 not currently on med, resume 25 mcg, check lab in 6 weeks Obesity 910563878 E66.9 advised low fat, low cholestero l diet, regular exercise and weight reduction. Mixed anxi ety and depressive disorder 087202986 F41.8 stable with med, cont escitalopr am 10 mg, pt also resumed her wellbutrin on own, will refill Candidiasis of vagina 72 191547 B37.31 will send antifungal , also dwp hygeine [id number] Carol Sheth APN, FNP-C [facility] (Adult Med) [address] [place] [address] 04/29/2022 14:48:51 04/30/2022 09:10:43 COVID-19 774543950 U07.1 dwp covid precaution scont inhaler prn Postviral cough 08143589 4 R05.3 dwp possible bacterial infection- will send zpack to cover, Upper resp iratory infection 63790787 J06.9 cont symptom mgmt with otc meds Obesity 178186743 E66.9 advised low fat, low cholestero l diet, regular exercise and weight reduction. [id number] Carol Sheth APN, FNP-C [facility] (Adult Med) [address] [place] [address] 07/06/2022 14:42:21 07/13/2022 13:44:56 Hypothyroidism 19353666 E03.9 not currently on med, resume 25 mcg, check lab in 6 weeks Obesity 382640983 E66.9 advised low fat, low cholestero l diet, regular exercise and weight reduction. Mixed anxi ety and depressive disorder 239526793 F41.8 stable with med, cont escitalopr am 10 mg, pt also resumed her wellbutrin on own, will refill [id number] Carol Sheth APN, FNP-C [facility] (Adult Med) [address] [place] [address] 04/05/2023 09:25:25 04/07/2023 10:08:54 Hypothyroidism 50341703 E03.9 not currently on med, check lab Vitamin D deficiency 347 41959 E55.9 recheck lab Abnormal urine odor 8769 003 R82.90 urine dip negative, will send for culture and notify pt if abx needed, dwp to increase fluids and RTO if increase in pain or fever or other changes occur. Cholesterol screening 27 8137068 Z13.220 Obesity 710265057 E66.9 advised low fat, low cholestero l diet, regular exercise and weight reduction. Electronic cigarette user 960865986 Z72.89 Smoking cessation encouraged . [id number] Carol Sheth APN, FNP-C [facility] (Adult Med) [address] [place] [address] 07/13/2024 10:09:56 07/23/2024 13:54:54 Hypothyroidism 31839055 E03.9 not currently on med, check lab Posterior rhinorrhea 758 62098 R09.82 just bought zyrtec but has not taken it, advised to start it Headache 60119987 R51.9 will check labsadvise d headache logincreas e water intakeotc meds Disorder of vitamin D 38 3708970 E55.9 check lab Cholesterol screening 27 7001122 Z13.220 Depression screening 171 594440 Z13.31 depression screening positive-r epeat at followup Health Concerns Section Related Observation LastModified by Organization Detai ls LastModified Time None Recorded Concern Status LastModified by Organization Details LastModified Time None Recorded Advance Directives Directive N: Payers Encounter Date Sequence Insurance Name Policy Number Policy Mai Covered Member ID Mai Member ID Guarantor Name 03/12/[address] [facility] ON OR AFTER 10/23/20 (MEDICAID REPLACEMENT - HMO) Donya Cali [id number] Donya Cali 04/29/[address] [facility] ON OR AFTER 10/23/20 (MEDICAID REPLACEMENT - HMO) Donya Cali [id number] Donya Cali 07/06/2022 1 [facility] - DOS ON OR AFTER 20 (MEDICAID REPLACEMENT - HMO) Donya Cali [id number] Donya Cali 04/05/2023 1 [facility] - DOS ON OR AFTER 20 (MEDICAID REPLACEMENT - HMO) Donya Cali [id number] Donya Cali 07/13/2024 2 *SELF PAY* Ni grey Cali 07/13/2024 1 [facility] (HMO) [id number] Donya Cali [id number] Donya Cali Notes Date Note Type Note Provider Name and Address Organization Details Recorded Time 03/12/2022 text/html smell to urine f or awhile. pt states she started taking her bupropion again that used to be prescribed by her OBGYN Carol Sheth APN, [place] Attn: Accounting,[address] [facility], [place], [address], [facility] 03/12/2022 17:24:12 04/29/2022 text/html tested positive for covid on 04/22- prescribed paxlovid and finished it but still having headaches, sore throat, runny nose, slight cough- now productivesymptoms started 04/20 with clammy, 04/22 started fever, Carol Sheth APN, MARY JO-Bay Attn: Accounting,[address] [facility], [place], [address], [facility] 04/29/2022 15:51:16 07/06/2022 text/html pt has been taki ng Iron otc for her tiredness. Pt is still having dizzy spells occasionally;has not been consistent with thyroid medication Carol Sheth APN, MARY JO-C Attn: Accounting,[address] [facility], [place], [address], [facility] 07/06/2022 20:52:40 04/05/2023 text/html Needs thyroid ch ecked for meds- not currently on thyroid medpossible UTI- lower abdomen pain. denies dysuria and frequency. Urine has odor for a week Carol Sheth APN, FNP-C Attn: Accounting,[address], [place], [address], [facility] 04/05/2023 14:01:33 07/13/2024 text/html headaches for th e last week. pt states she woke up 1 morning and was lightheaded/dizzy. no otc medswhole head hurting no origin point;no c/o runny nose or watery eyes, no cough Carol Sheth APN, COFFEE HOST-C Attn: Accounting,[address], [place], [address], [facility] 07/22/2024 22:08:32 OBGyn Episode Ob Episode Information Episode Created Date Number of Fetuses Patient Bloodtype Patient rh Status Prepregnancy Weight lbs Domestic Partner Domestic Partner Phone Father Name Lumber Estimator Status 05/21/19 16 1 O Positive CLOSED Fetus Data First Name Last Name Admitted to NICU Weight (g) Sex Living Outcome Pediatric Complications Fetus ID Race Codes Race Delivery Type Demise 18613 2106-3 White Problems Problem Notes Problem Name Start Date End Date Resolution Snomed Code Not e care for woman wit h history of recurrent miscarriage 427197379 Irritable bowel syndrome 14667 008 Varicella 30900536 Vitamin D deficiency 96241362 Constipation 65146040 Threatened miscarriage 1703401 3 Missed miscarriage 52022692 Disorder of stomach 11730301 Bacterial vaginosis 431992224 Antony Calculation Initial Antony Date Initial Exam Date Initial Exam Provider Initial Ultrasound Date Last Menstrual Period Date Ultra Sound Weeks Gestation 01/20/2016 05/21/2015 willa 04/15/2015 0 Eighteen To Twenty Week Antony Update Ultra Sound Date Fundal Height At Umbil Quickening Date Ultra Sound Latest Weeks Gestation Final Antony Confirmed By Final Antony Confirmed Date Final Antony Date Ultra Sound Latest Days Gestation 0 01/20/20 16 0 Pre- Flowsheet Flowsheet Date 05/21/2015 Antonio Score Blood Edema Fundus Height Fundus Units Glucose Ketones Leukocytes Nitrite Labor Signs Protein Cervic Dilation Cervic Effacement Cervic Station neg trace none large 1+ Type Weight in lbs Pre/Post Dialysis Refused 179.377351745155 BP Diastolic BP Location Tested BP Systolic BP Type 64 104 sitting Fetus Heart Rate Present Fetus Movement Comments Flowsheet Date 06/05/2015 Antonio Score Blood Edema Fundus Height Fundus Units Glucose Ketones Leukocytes Nitrite Labor Signs Protein Cervic Dilation Cervic Effacement Cervic Station neg none none negative neg Type Weight in lbs Pre/Post Dialysis Refused 181.188590226524 BP Diastolic BP Location Tested BP Systolic [...] Estim ated Date of Delivery false Thalassemia (Djiboutian, Kiswahili, Mediterranean, Or Background): MCV < 80 false Neural Tube Defect (Meningomyelocele, Spina Bifi da, Or Anencephaly) false Congenital Heart Defect false Down Syndrome false Robert-Sachs (eg, Presybeterian, Cajun, Jordanian-[place]) f alse Avelina Disease false Sickle Cell [...] Domestic Partner Domestic Partner Phone Father Name Lumber Estimator Status 03/24/20 17 1 O Positive 200 sarabjit cain lto undecided CLOSED Fetus Data First Name Last Name Admitted to NICU Weight (g) Sex Living Outcome Pediatric Complications Fetus ID Race Codes Race Delivery Type Bert Holley calctressa false 3231.84 3 M true Full Term 18559 2106-3 White Primary Problems Problem Notes 10/20/17 baby boy, Bert gifford yes to circ, bottle feed, yes epidural, pt states Peds undecided, possibly,ppbc, or patch, bcp, cb-rma elective 11/18/2017 Problem Name Start Date End Date Resolution Snomed Code Not e Smoker 05/04/2017 52756769 Ventricular septal defect 05/04/2017 73361521 s/p surgery 199 1 Recurrent miscarriage 09544450 1 Group B Streptococcus carrier 03/28/2017 0626650982146 High risk 05/04/2017 72387818 Candidiasis of vagina 03/28/2017 2439163 0 Hypothyroidism 03/29/2017 56506913 Delivery by elective section 573802462 11/18/2017 Antony Calculation Initial Antony Date Initial Exam Date Initial Exam Provider Initial Ultrasound Date Last Menstrual Period Date Ultra Sound Weeks Gestation 11/21/2017 03/24/2017 willa 04/14/2017 02/14/2017 8 Eighteen To Twenty Week Antony Update Ultra Sound Date Fundal Height At Umbil Quickening Date Ultra Sound Latest Weeks Gestation Final Antony Confirmed By Final Antony Confirmed Date Final Antony Date Ultra Sound Latest Days Gestation 04/14/20 17 8 [email or web address] 05/04/2017 11/22/19 18 3 Pre-ruslan Flowsheet Flowsheet Date 03/24/2017 Antonio Score Blood Edema Fundus Height Fundus Units Glucose Ketones Leukocytes Nitrite Labor Signs Protein Cervic Dilation Cervic Effacement Cervic Station neg none 5 wks none negative neg Type Weight in lbs Pre/Post Dialysis Refused 204.733546309659 BP Diastolic BP Location Tested BP Systolic [...] Type Weight in lbs Pre/Post Dialysis Refused 194.646400430308 BP Diastolic BP Location Tested BP Systolic BP Type 74 122 sitting Fetus Heart Rate Present A 166 Present Fetus Movement A No Comments High risk . h/o VSD s/p surgery 1990, smoker, hypothyroidism, recurrent loss, GBS, needs to be evaluated by MFM. Level 2 US and repeat labs ordered. Goal is for pt to be seen [id number] alternating between [facility] and [facility]. Flowsheet Date 06/09/2017 Antonio Score Blood Edema Fundus Height Fundus Units Glucose Ketones Leukocytes Nitrite Labor Signs Protein Cervic Dilation Cervic Effacement Cervic Station neg none 16 wks none negative none neg Type Weight in lbs Pre/Post Dialysis Refused 187.640933567268 BP Diastolic BP Location Tested BP Systolic [...] Type Weight in lbs Pre/Post Dialysis Refused 188.246605643269 BP Diastolic BP Location Tested BP Systolic BP Type 72 122 sitting Fetus Heart Rate Present A 153 Present Fetus Movement A Yes Comments constipated (secondary to IB S); patient is being followed by high school physical education teacher; OB FU at next visit in 4 wks; also get TSH levels at next visit (patient is hypothyroid) Flowsheet Date 08/03/2017 Antonio Score Blood Edema Fundus Height Fundus Units Glucose Ketones Leukocytes Nitrite Labor Signs Protein Cervic Dilation Cervic Effacement Cervic Station neg none 16 cm none negative none trace Type Weight in lbs Pre/Post Dialysis Refused 191.273334787717 BP Diastolic BP Location Tested BP Systolic [...] Type Weight in lbs Pre/Post Dialysis Refused 202.425118614404 BP Diastolic BP Location Tested BP Systolic BP Type 60 114 sitting Fetus Heart Rate Present A 144 Present Fetus Movement A Yes Comments us monthly Flowsheet Date 10/20/2017 Antonio Score Blood Edema Fundus Height Fundus Units Glucose Ketones Leukocytes Nitrite Labor Signs Protein Cervic Dilation Cervic Effacement Cervic Station trace 36 cm 0cm 70% -1 Type Weight in lbs Pre/Post Dialysis Refused 214.662260146752 BP Diastolic BP Location Tested BP Systolic BP Type 72 128 sitting Fetus Heart Rate Present A 142 Present Fetus Movement A Yes Comments Fell today in shower, sent f or BPP & NST. BPP normal. Sky on NST today q6-8min, given IVF. Sent PIH labs and given 24hr urine today. Monthly US given. Contacting [facility] for delivery plan. RTC 1 wk. Flowsheet Date 10/27/2017 Antonio Score Blood Edema Fundus Height Fundus Units Glucose Ketones Leukocytes Nitrite Labor Signs Protein Cervic Dilation Cervic Effacement Cervic Station neg trace 36 cm none negative none trace 0cm 70% -1 Type Weight in lbs Pre/Post Dialysis Refused 214.727661113328 BP Diastolic BP Location Tested BP Systolic [...] Type Weight in lbs Pre/Post Dialysis Refused 216.700512492756 BP Diastolic BP Location Tested BP Systolic [...] Type Weight in lbs Pre/Post Dialysis Refused 217.995279466056 BP Diastolic BP Location Tested BP Systolic BP Type 60 120 sitting Fetus Heart Rate Present A 135 Present Fetus Movement A Yes Comments Flowsheet Date 12/05/2017 Antonio Score Blood Edema Fundus Height Fundus Units Glucose Ketones Leukocytes Nitrite Labor Signs Protein Cervic Dilation Cervic Effacement Cervic Station Type Weight in lbs Pre/Post Dialysis Refused 196.288704926379 BP Diastolic BP Location Tested BP Systolic BP Type 62 R arm 100 sitting Fetus Heart Rate Present Fetus Movement Comments Flowsheet Date 01/16/2018 Antonio Score Blood Edema Fundus Height Fundus Units Glucose Ketones Leukocytes Nitrite Labor Signs Protein Cervic Dilation Cervic Effacement Cervic Station Type Weight in lbs Pre/Post Dialysis Refused 196.607820735302 BP Diastolic BP Location Tested BP Systolic BP Type Fetus Heart Rate Present Fetus Movement Comments Menstrual History Last Menstrual Date Menses Monthly On Bcp Conception Prior Menses Frequency Hcg Plus Date Menarche Onset Age 1002/14/2017 Genetic Screening And Infection History Question Response Note Patient's Age Will Be 35 Yea rs Or Older At Estimated Date of Delivery false Thalassemia (Djiboutian, Kiswahili, Mediterranean, Or Background): MCV < 80 false Neural Tube Defect (Meningom yelocele, Spina Bifida, Or Anencephaly) false Congenital Heart Defect true pt had V SD, repaired in 1990 Down Syndrome false Robert-Sachs (eg, Presybeterian, Cajun, Jordanian-[place]) f alse Vaelina Disease false Sickle Cell Disease Or Trait [...] By 04/21/2017 Anticipated course o f care [email or web address] 04/21/2017 Alcohol [email or web address] 04/21/2017 Intimate partner violence [email or web address] 04/21/2017 Environmental/work hazards r [email or web address] 04/21/2017 Screening for aneuploidy [email or web address] [email or web address] 04/21/2017 Nutrition counseling ; special diet; dietary precautions (mercury, listeriosis) [email or web address] 04/21/2017 Childbirth classes/h ospital facilities given handout of classes offered at [facility] and [facility]2017 HIV and other routin e tests at initial ob visit [email or web address] 04/21/2017 Risk factors identif ied by history [email or web address] 04/21/2017 [email or web address] 04/[facility]/2017 Exercise [email or web address] 04/21/2017 Teratogens [email or web address] 04/21/2017 Use of any medicatio ns (including supplements, vitamins, herbs, or OTC drugs) [email or web address] 04/21/2017 10/20/17 bottle feed[facility] 04/21/2017 Sexual activity [email or web address] 04/21/2017 Tobacco/smoking cess ation counseling (ask, advise, assess, assist, and arrange) [email or web address] 04/21/2017 Illicit/recreational drugs r [email or web address] 04/21/2017 Dental care given dental con sent at initial ob visit [email or web address] 04/21/2017 Travel [email or web address] 04/21/2017 Seat belt use [email or web address] 04/21/2017 Indications for ultrasonography monthly [email or web address] 04/21/2017 Avoidance of saunas or hot tubs [email or web address] 04/21/2017 Toxoplasmosis precau tions (cats/raw meat) [facility] Second Tr[facility] Discussed Date Discussion Item Discussion Note Discuss ed By 08/03/2017 Selecting a care provider 10/20/17 pt states possibly [facility] Pedtommie Hearn, bijal-meme [email or web address] 10/20/2017 family planning/tubal sterilization 10/20/17 PPBC, bcp,or patch, cb-rma [email or web address] Third Trimester Discussed Date Discussion Item Discussion Note Discuss ed By 08/03/2017 Anesthesia plans spinal elective c-sectio n [email or web address] 08/03/2017 Circumcision 08/03/17 baby boy, yes to ci rc, cb-rma [email or web address] 08/03/2017 10/20/17 bottle, cb-rma cbr [email or web address] [...]
[2024-08-15 08:42] LABS: Strep Group A RT-PCR DETECTED (Negative)
--- NOTE | 2024-08-15 09:45 | ED.URI ---
HPI - URI/Sore Throat General Chief Complaint: Upper Respiratory Infection Stated Complaint: sore throat Time Seen by Provider: 08/15/24 09:14 Source: patient Mode of arrival: ambulatory Limitations: no limitations History of Present Illness HPI Narrative: This is a 34 year old female that presents to the ER for sore throat. Ongoing over the last 2 days. Reports fevers, myalgias. Reports this is been very difficult for her to swallow any solids. Related Data Allergies Allergy/AdvReac Type Severity Reaction Status Date / Time No Known Allergies Allergy Verified 08/15/24 08:03 Review of Systems Review of Systems: CONSTITUTIONAL: Denies fever ENT: Reports sore throat RESPIRATORY: Denies dyspnea. All systems reviewed & are unremarkable except as noted in HPI and below PMFSH Past Medical History Medical History Vaginal discharge Hypothyroid Depression Anxiety Heart murmur Plantar fasciitis, bilateral Surgical History Surgical History History of gynecological procedure emmanuel insertion 04/2018 / emmanuel removal 08/06/2021 mirena iud insertion - 08/06/2021 History of open heart surgery H/O dilation and curettage Family History Family History Father Hypertension Mother Diabetes mellitus Fatty liver Social History Social History Smoking packs per day: 1 Smoking cigarettes per day: 20.0 Years smoked: 11 Smoking pack-years: 11.00 Smoking status: Current every day smoker Tobacco type: cigarettes Second hand tobacco smoke exposure: Yes Alcohol intake: never Substance use: current Substance use type: marijuana Living arrangements: with family Occupation/Education: occupation 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 HEAD: Normocephalic, atraumatic. EYES: EOMI. ENT: Nares clear, no rhinorrhea or epistaxis. Mucous membranes moist. Oropharynx with symmetric tonsillar hypertrophy, exudates, no other lesions. Uvula is midline. No trismus. Bilateral TMs pearly willard non-bulging NECK: Supple. Painful anterior cervical adenopathy CHEST: Clear to auscultation. No respiratory distress. No wheezes rales or rhonchi HEART: Regular rate and rhythm. No murmur heard. Normal peripheral pulses. EXTREMITIES: Normal range of motion. No edema. SKIN: Warm, dry, no rash. NEURO: No focal deficits. Alert and oriented x3. PSYCH: Normal mood and affect Course Course Emergency Course: Patient updated on her workup and agrees with plan of care Vital Signs Vital signs: Vital Signs Temperature 99.1 F 08/15/24 08:04 Pulse Rate 116 H 08/15/24 08:04 Respiratory Rate 16 08/15/24 08:04 Blood Pressure 129/78 08/15/24 08:04 Pulse Oximetry 97 08/15/24 08:04 Temperature 99.1 F 08/15/24 08:04 Pulse Rate 76 08/15/24 10:29 Respiratory Rate 19 08/15/24 10:29 Blood Pressure 116/63 08/15/24 10:29 Pulse Oximetry 98 08/15/24 10:29 MDM - URI/Sore Throat MDM Narrative Medical decision making narrative: Patient presents to the ER for sore throat. Patient's strep swab is positive. No evidence of PUBLICATIONS SALES REPRESENTATIVE. Will be started on oral antibiotics. She is to follow up with PCP. She was given warnings to return to the ER Differential Diagnosis Differential diagnosis: Likely upper respiratory infection, viral infection, pharyngitis and other (strep) Lab Data Attestation: I reviewed the patient's lab results. Labs: Lab Results 08/15/24 Range/Units 08:14 Group A Strep (PCR) Detected A (Negative) Critical Care Time Critical Care Time Critical Care Time: No Discharge Plan Discharge Clinical Impression: Strep pharyngitis Patient Disposition: Home Condition: Improved Instructions: Antibiotic Form, Strep Throat (ED) Additional Instructions: Return to the emergency department for worsening symptoms, or any other concerns Remain well-hydrated, get plenty of rest. Take Tylenol or Motrin [id number] for pain as needed. Lozenges or Chloraseptic spray for sore throat. Take oral antibiotics as prescribed Follow up with primary care doctor Patient Language: Costa Rican Prescriptions: New penicillin V potassium 250 mg/5 mL recon soln 500 mg PO BID 10 Days Qty: 200 0RF Follow-up/Referrals: Mendoza,Carol Ann APN [Primary Care Provider] -
[2024-08-15] MEDS: SODIUM CHLORIDE 0.9% IV 1,000 ML 999 ML IV CONT (10:06)
[2024-08-15] MEDS: KETOROLAC 15 MG/ML VIAL (*BKC) IV PUSH (10:06)
[2024-08-15] MEDS: dexAMETHasone SOD PHOS INJ 10 MG/ML 1 ML VIAL IV PUSH (10:07)
[2024-08-15 10:29] VITALS: BP 116/63; PULSE 76; RESP 19; O2SAT 98
--- OUTSIDE RECORDS SUMMARY | 2024-08-15 10:39 | XMS_ITS | Continuity of Care Document ---
Author Organization [facility] [address] [place] [address] [address] [place] [address] Phone Care Team Providers Care Professional Fee Coder Name Role Phone Mcclelland OD, Jorge Alberto Unavailable Unavailable Advance Directives Directive Yes / No Effective Date File Name No Information Encounters Encounter Description Practice Location Reason(s) For Visit Diagnoses Date Provider Providers Copied on Encounter [facility], [address] [place] [address] [address], [place], [place], [id number], [place] tel:[phone] [facility] No Information Mar-2 9-200 0 Mcclelland OD Jorge Alberto. [address] , [address], [place], [address], [place]. tel:[phone] Family History Family Member Type Diagnosis Age At Onset No Information Payers Payer name Insurance type Covered constitution party ID Authoriza tion(s) Medicaid [facility] [id number] Social History Type Description Quantity Date Captured [...]
[2024-08-15 11:10] VITALS: BP 105/72; PULSE 80; RESP 14; TEMP 36.6; O2SAT 96
== END 2024-08-15 11:27 | disposition home or self-care (01) ==
PROVIDERS: Emergency Medicine; Emergency Provider Physician Assistant; PCP Nurse Practitioner Family
DX: J02.0 Streptococcal pharyngitis (principal); F17.210 Nicotine dependence, cigarettes, uncomplicated; E03.9 Hypothyroidism, unspecified; F32.A Depression, unspecified; F41.9 Anxiety disorder, unspecified
CPT/HCPCS: 87651; 96361; 96374; 96375; 99284; J1100; J1885; J7030